=== PATIENT | female | born 1945 | race Caucasian/White ===

== ENCOUNTER → 2016-12-28 | Outpatient (CLI) | payer MEDICARE, BC ==
[~2016-12-28] MED LIST: CHOL1TAB41 PO; CINN500T PO; CLOT10TR PO; CORT5TAB PO; DAPA1TAB3 PO; DIMISTA EACH NARE; ESZO3TAB4 PO; FLEC1TAB8 PO; FOLI1TAB4 PO; FURO20TA PO; GABA300C5 PO; HYDR-4107 PO; HYDR50TA94 PO; LEVO.125 PO; LEVOTAB PO; MIRA50TA PO; MONT10TA2 PO; MULT1TAB99 PO; NALO1TAB2 PO; NYST500000 PO; ONDA1TAB17 PO; POTA10TA8 PO; PRAD150C PO; PRAV40TA2 PO; PROT40TA PO; VICT18IN SQ
[2016-12-28 13:21] LABS: AUTOMATED NEUTROPHIL # 3.7 TH/MM3 (1.8-7.7); BASOPHIL % 0.7 % (0.0-2.0); EOSINOPHIL # 0.1 TH/MM3 (0-0.4); EOSINOPHIL % 1.3 % (0.0-4.0); HEMATOCRIT 43.4 % (35.0-46.0); LYMPH % 37.2 % (9.0-44.0); LYMPHOCYTE # 2.7 TH/MM3 (1.0-4.8); MEAN CELL VOLUME 76.9 FL (80.0-100.0); MEAN CORPUSCULAR HEMOGLOBIN 24.7 PG (27.0-34.0); MEAN CORPUSCULAR HGB CONC 32.1 % (32.0-36.0); MONO % 9.7 % (0.0-8.0); NEUT % 51.1 % (16.0-70.0); PLATELET COUNT 284 TH/MM3 (150-450); RED BLOOD COUNT 5.65 MIL/MM3 (4.00-5.30); RED CELL DISTRIBUTION WIDTH 15.9 % (11.6-17.2); WHITE BLOOD COUNT 7.2 TH/MM3 (4.0-11.0)
[2016-12-28 13:22] LABS: HEMO FLAGS AUTO DIFF
[2016-12-28 13:27] LABS: BACTERIA, URINE RARE /hpf; BLOOD, URINE NEG (NEG); COMMENT (UR) CULT NOT INDICATED; CULTURE IF INDICATED CULT NOT INDICATED; GLUCOSE,URINE 1000 mg/dL (NEG); KETONE, URINE NEG (NEG); MUCUS URINE FEW /lpf (OCC); NITRITE,URINE NEG (NEG); PH, URINE 6.5 (5.0-8.5); SQUAMOUS EPITHELIAL CELL URINE 1 /hpf (0-5); TRANSITIONAL EPI CELLS, URINE <1 /hpf; URINE COLOR YELLOW (YELLW/STRAW)
[2016-12-28 13:37] LABS: ALKALINE PHOSPHATASE 70 U/L (45-117); ALT (GPT) 22 U/L (10-53); ANION GAP 9 MEQ/L (5-15); AST (GOT) 20 U/L (15-37); BICARBONATE 30.5 MEQ/L (21.0-32.0); BLOOD UREA NITROGEN 14 MG/DL (7-18); CHLORIDE 102 MEQ/L (98-107); FREE T3 2.38 PG/ML (2.18-3.98); FREE T4 1.05 NG/DL (0.76-1.46); GLOMERULAR FILTRATION RATE 60 ML/MIN (>89); GLUCOSE,FASTING 119 MG/DL (74-99); LDL CHOLESTEROL 98 MG/DL (0-99); POTASSIUM 3.6 MEQ/L (3.5-5.1); SODIUM (NA) 141 MEQ/L (136-145); TOTAL BILIRUBIN ADULT 0.4 MG/DL (0.2-1.0); URIC ACID 4.8 MG/DL (2.6-6.0)
[2016-12-28 13:44] LABS: MICRO ALBUMIN RANDOM URINE RAW 8.1 MG/L (0.0-30.0)
[2016-12-28 13:58] LABS: SCAN/DIFF AUTO DIFF CONFIRMED
[2016-12-28 18:26] LABS: HEMOGLOBIN Ao 83.3 %; HEMOGLOBIN LA1C 2.2 %; HEMOGLOBIN P3 4.4 %
== END ==
LOC: PLAB 08:04
DX: M06.4 Inflammatory polyarthropathy (principal); E78.00 Pure hypercholesterolemia, unspecified; E03.9 Hypothyroidism, unspecified; M32.9 Systemic lupus erythematosus, unspecified; D45 Polycythemia vera; M79.605 Pain in left leg; E11.65 Type 2 diabetes mellitus with hyperglycemia; E55.9 Vitamin D deficiency, unspecified; M1A.3620 Chronic gout due to renal impairment, left knee, without tophus (tophi); Z79.899 Other long term (current) drug therapy
CPT/HCPCS: 36415; 80053; 80061; 81001; 82043; 82306; 83036; 84439; 84443; 84481; 84550; 85025; 85379

== ENCOUNTER → 2017-04-26 | Outpatient (CLI) | payer MEDICARE, BC ==
[2017-04-26 12:02] LABS: ANION GAP 8 MEQ/L (5-15); AST (GOT) 25 U/L (15-37); BICARBONATE 29.2 MEQ/L (21.0-32.0); BLOOD UREA NITROGEN 18 MG/DL (7-18); CHLORIDE 103 MEQ/L (98-107); GLOMERULAR FILTRATION RATE 63 ML/MIN (>89); GLUCOSE,FASTING 100 MG/DL (74-99); SODIUM (NA) 140 MEQ/L (136-145)
[2017-04-26 12:06] LABS: AUTOMATED NEUTROPHIL # 3.3 TH/MM3 (1.8-7.7); BASOPHIL # 0.1 TH/MM3 (0-0.2); BASOPHIL % 0.9 % (0.0-2.0); EOSINOPHIL # 0.2 TH/MM3 (0-0.4); EOSINOPHIL % 2.3 % (0.0-4.0); HEMATOCRIT 43.3 % (35.0-46.0); HEMO FLAGS DIFF FINAL; LYMPH % 39.2 % (9.0-44.0); LYMPHOCYTE # 2.7 TH/MM3 (1.0-4.8); MEAN CELL VOLUME 77.5 FL (80.0-100.0); MEAN CORPUSCULAR HEMOGLOBIN 24.7 PG (27.0-34.0); MEAN CORPUSCULAR HGB CONC 31.9 % (32.0-36.0); MONO % 8.7 % (0.0-8.0); NEUT % 48.9 % (16.0-70.0); PLATELET COUNT 285 TH/MM3 (150-450); POTASSIUM 3.7 MEQ/L (3.5-5.1); RED BLOOD COUNT 5.59 MIL/MM3 (4.00-5.30); RED CELL DISTRIBUTION WIDTH 18.1 % (11.6-17.2); WHITE BLOOD COUNT 6.8 TH/MM3 (4.0-11.0)
[2017-04-26 12:12] LABS: ALKALINE PHOSPHATASE 85 U/L (45-117); ALT (GPT) 21 U/L (10-53); FREE T3 2.92 PG/ML (2.18-3.98); FREE T4 1.14 NG/DL (0.76-1.46); HDL CHOLESTEROL 59.3 MG/DL (40.0-60.0); LDL CHOLESTEROL 103 MG/DL (0-99); TOTAL BILIRUBIN ADULT 0.6 MG/DL (0.2-1.0)
[2017-04-26 16:19] LABS: HEMOGLOBIN Ao 83.4 %; HEMOGLOBIN LA1C 2.2 %; HEMOGLOBIN P3 4.5 %
== END ==
LOC: PLAB 09:41
DX: E03.9 Hypothyroidism, unspecified (principal); E11.65 Type 2 diabetes mellitus with hyperglycemia; E55.9 Vitamin D deficiency, unspecified; M06.4 Inflammatory polyarthropathy
CPT/HCPCS: 36415; 80053; 80061; 82306; 83036; 84439; 84443; 84481; 85025

== ENCOUNTER → 2017-06-05 | Outpatient (CLI) | payer MEDICARE, BC ==
[2017-06-05 14:11] LABS: TOTAL PROTEIN SPE 6.9 GM/DL (6.0-7.6)
[2017-06-06 22:24] LABS: ALBUMIN SPE 4.2 GM/DL (3.50-5.00); ALPHA 1 GLOBULIN 0.21 GM/DL (0.11-0.29); ALPHA 2 GLOBULIN 0.99 GM/DL (0.22-1.00); BETA GLOBULINS (SPE) 0.91 GM/DL (0.53-1.03)
== END ==
LOC: PLAB 07:45
DX: E53.8 Deficiency of other specified B group vitamins (principal); G44.219 Episodic tension-type headache, not intractable; G60.9 Hereditary and idiopathic neuropathy, unspecified
CPT/HCPCS: 36415; 82607; 84165

== ENCOUNTER → 2017-06-19 | Outpatient (CLI) | payer MEDICARE, BC | LOC: PLAB 09:17 | DX: G44.219 Episodic tension-type headache, not intractable (principal); G04.90 Encephalitis and encephalomyelitis, unspecified; M06.9 Rheumatoid arthritis, unspecified; M54.81 Occipital neuralgia | CPT/HCPCS: 36415; 85652 ==

== ENCOUNTER → 2017-07-05 | Outpatient (CLI) | payer MEDICARE, BC | LOC: PLAB 07:53 | PROVIDERS: ATTEND Family Medicine | DX: R53.82 Chronic fatigue, unspecified (principal); E11.40 Type 2 diabetes mellitus with diabetic neuropathy, unspecified | CPT/HCPCS: 36415; 82533; 82607; 82746 ==

== ENCOUNTER → 2017-09-19 | Outpatient (CLI) | payer MEDICARE, BC ==
[~2017-09-19] MED LIST changes: -ONDA1TAB17 PO; +ONDA8TAB7 PO
[2017-09-19 13:52] LABS: ANION GAP 10 MEQ/L (5-15); AST (GOT) 27 U/L (15-37); BICARBONATE 29.2 MEQ/L (21.0-32.0); BLOOD UREA NITROGEN 20 MG/DL (7-18); CHLORIDE 102 MEQ/L (98-107); GLOMERULAR FILTRATION RATE 60 ML/MIN (>89); GLUCOSE,FASTING 95 MG/DL (74-99); POTASSIUM 3.5 MEQ/L (3.5-5.1); SODIUM (NA) 141 MEQ/L (136-145)
[2017-09-19 14:02] LABS: ALKALINE PHOSPHATASE 95 U/L (45-117); ALT (GPT) 26 U/L (10-53); FREE T3 2.31 PG/ML (2.18-3.98); FREE T4 0.87 NG/DL (0.76-1.46); TOTAL BILIRUBIN ADULT 0.4 MG/DL (0.2-1.0)
[2017-09-19 17:55] LABS: HEMOGLOBIN A1a 1.1 %; HEMOGLOBIN A1b 2.1 %; HEMOGLOBIN Ao 83.1 %; HEMOGLOBIN LA1C 2.1 %
== END ==
LOC: PLAB 07:51
DX: E03.9 Hypothyroidism, unspecified (principal); E55.9 Vitamin D deficiency, unspecified; E11.65 Type 2 diabetes mellitus with hyperglycemia
CPT/HCPCS: 36415; 80053; 82306; 83036; 84439; 84443; 84481

== ENCOUNTER 2017-11-13 02:45 | Inpatient (IN) | payer MEDICARE, BC ==
[2017-11-13] VITALS (20 sets, daily range): BP systolic 104–155; BP diastolic 56–79; PULSE 64–150; RESP 16–25; TEMP 97.6–98.6; O2SAT 94–97
[~2017-11-13] VITALS: Ht 160 cm; Wt 70.8 kg
[2017-11-13] MEDS ORDERED: SODIUM CHLORIDE 0.9% FLUSH 10 ML FLUSH IVF PRN (03:00)
[2017-11-13] MEDS ORDERED: ASPIRIN 81 MG CHEW TAB CHEW ONE (03:00)
[2017-11-13] MEDS ORDERED: NITROGLYCERIN 2% OINT 1 GM PACKET TOPICAL ONE (03:00)
[2017-11-13] MEDS ORDERED: DILTIAZEM HCL 25 MG/5 ML VIAL IV PUSH ONE (03:00)
[2017-11-13] MEDS ORDERED: SODIUM CHLORIDE 0.9% FLUSH 10 ML FLUSH IV FLUSH PRN ×2 (03:00→05:45)
[2017-11-13] MEDS ORDERED: DILTIAZEM INJ 125 MG in SODIUM CHLORIDE 0.9% INJ 100 ML IV PRN (03:00)
[2017-11-13] MEDS ORDERED: SODIUM CHLORID 0.9% 500 ML INJ 500 ML IV ONE (03:15)
[2017-11-13 03:31] LABS: AUTOMATED NEUTROPHIL # 8.8 TH/MM3 (1.8-7.7); BASOPHIL # 0.1 TH/MM3 (0-0.2); BASOPHIL % 0.8 % (0.0-2.0); EOSINOPHIL # 0.1 TH/MM3 (0-0.4); EOSINOPHIL % 0.7 % (0.0-4.0); HEMATOCRIT 44.1 % (35.0-46.0); HEMOGLOBIN 14.4 GM/DL (11.6-15.3); LYMPH % 23.7 % (9.0-44.0); LYMPHOCYTE # 3.2 TH/MM3 (1.0-4.8); MEAN CELL VOLUME 79.7 FL (80.0-100.0); MEAN CORPUSCULAR HGB CONC 32.7 % (32.0-36.0); MEAN PLATELET VOLUME 8.5 FL (7.0-11.0); MONO % 9.2 % (0.0-8.0); MONOCYTE # 1.2 TH/MM3 (0-0.9); NEUT % 65.6 % (16.0-70.0); PLATELET COUNT 298 TH/MM3 (150-450); RED BLOOD COUNT 5.53 MIL/MM3 (4.00-5.30); RED CELL DISTRIBUTION WIDTH 17.1 % (11.6-17.2); WHITE BLOOD COUNT 13.5 TH/MM3 (4.0-11.0)
--- NOTE | 2017-11-13 03:48 | RADRPT ---
EXAM DATE/TIME: 11/13/2017 03:19 [place] COMPARISON: CHEST SINGLE AP, August 04, 2016, 21:16. INDICATIONS : Chest pain. MEDICAL HISTORY : None. SURGICAL HISTORY : None. ENCOUNTER: Initial ACUITY: 1 day PAIN SCORE: 4/10 LOCATION: Bilateral chest FINDINGS: The cardiac silhouette is enlarged in transverse diameter. The lungs are free of acute parenchymal op acity. No effusions are identified. There is mild scoliotic deformity convex to the right. CONCLUSION: 1. Cardiomegaly. No acute pulmonary disease. Javier Galeano MD on November 13, 2017 at 3:46 Board Certified Radiologist. This report was verified electronically.
--- NOTE | 2017-11-13 04:00 | PD ---
HPI Chief Complaint: Chest Pain Time Seen by Provider: 02:53 Travel History International Travel<30 days: No Contact w/Intl Traveler<30days: No Traveled to known affect area: No History of Present Illness HPI The patient is a 72 year old female who presents to the [facility] emergency department with a history of developing pain in her mid back associated with midepigastric abdominal discomfort and heartburn in the evening today. The patient reports that she was active yesterday moving some furniture with the help of her as well as cleaning up her Ema decorations. The patient reports that she had chili for dinner and thought that the heartburn may be related to this. She reports that she took Tums without any relief. She reports that she began to feel short of breath and nauseated with the pain. The patient then noticed that her heart seemed to be racing. The patient awoke again at approximately 2:30 AM with chest pain. She reports that she took 2 sublingual nitroglycerin without relief and then came to the emergency department. She denies having any known history of coronary artery blockages. She does have a family history of coronary artery disease. She also has a history of atrial fibrillation that on tinea sleek converted in February 2012. She continues to be on flecainide and for doxapram anticoagulation. The patient arrived by private vehicle. The patient is noted out front to have a heart rate in the 140s. Otherwise on review of systems, the patient denies having any vomiting associated with her nausea. The patient reports that the pain was radiating down into her arms. She denies having any recent fevers, cough or congestion, neck pain, abdominal pain diarrhea, urinary symptoms, or neurologic symptoms. [facility] Past Medical History Narrative Medical the patient's past medical history is significant for paroxysmal atrial fibrillation, history of hypertension, diabetes mellitus, history of Castleton's disease, history of cerebrovascular accident, rheumatoid arthritis, osteoarthritis, history of chronic pain syndrome, history of systemic lupus erythematosus, acid reflux, gastroparesis. From reviewing the electronic medical record, the patient has a history of having a chemical stress test done last in August 2016 at this facility which was negative. She had a cardiac catheterization done in 2006 which according the records showed normal coronary arteries without any coronary artery disease and a patent foramen ovale status post repair from 2001. Hx Anticoagulant Therapy: Yes (Pradaxa) Arthritis: Yes Asthma: Yes (hx attacks r/t allergy attacks) Autoimmune Disease: Yes (FIBROMYALGIA, SYSTEMIC CANDIDIASIS, LUPUS) Blood Disorders: No Heart Rhythm Problems: No Cancer: No Cardiac Catheterization: Yes (07/31/2007) Cardiovascular Problems: Yes (HTN, A-fib ) High Cholesterol: Yes (stopped meds due to adrenal 08/2014) Chest Pain: Yes Congestive Heart Failure: No Cerebrovascular Accident: Yes (stroke) Diabetes: Yes Patient Takes Glucophage: No Diminished Hearing: No Endocrine: Yes Fibromyalgia: Yes Gastrointestinal Disorders: Yes GERD: Yes Genitourinary: Yes (MULTIPLE CYSTS IN URETHRA, MD HAD TO POP) Hepatitis: No Hiatal Hernia: Yes Hypertension: Yes Immune Disorder: Yes (ADDISONS DIEASE) Implanted Vascular Access Dvce: Yes Medical other: Yes (MULTIPLE ALLERGIES, LUPUS, FIBROMYALGIA, RA, SEIZURES, REFLUX, STROKE) Musculoskeletal: Yes Neurologic: Yes Psychiatric: No Reproductive: No Respiratory: Yes (BRONCHITIS, PNEUMONIA) Migraines: Yes Myocardial Infarction: No Seizures: Yes Thyroid Disease: Yes (NODULES) Tetanus Vaccination: > 5 Years Influenza Vaccination: No PNEUMOCCOCAL Vaccine (Year): LAST REC'D 1999 Menopausal: Yes Dilation and Curettage (D&C): Yes Tubal Ligation: Yes Past Surgical History Narrative Surgical The patient's past surgical history is significant for cataract surgery, cholecystectomy, right knee surgery, appendectomy. Appendectomy: Yes (1960) Body Medical Devices: SCREWS/RODS IN BACK (2 broken) Cardiac Surgery: Yes (past) Cholecystectomy: Yes (05/13/2004) Coronary Artery Bypass Graft: No Eye Surgery: Yes (BILATERAL CATARACT SURGERY) Joint Replacement: Yes Pacemaker: No Other Surgery: Yes (LEFT KNEE SX) Family History Family Myocardial Infarction: Yes Social History Alcohol Use: Yes (occassional) Tobacco Use: No Substance Use: No Allergies-Medications (Allergen,Severity, Reaction): Coded Allergies: Sulfa (Sulfonamide Antibiotics) (Unverified Allergy, Severe, N/V, 06/19/17) acetaminophen (Unverified Allergy, Severe, red rash and hives, 06/19/17) amitriptyline (Unverified Allergy, Severe, red,rash and hives, 06/19/17) baclofen (Unverified Allergy, Severe, itch,rash and hives, 06/19/17) carisoprodol (Unverified Allergy, Severe, red,rash,hives, 06/19/17) cyclobenzaprine (Unverified Allergy, Severe, Hives, 06/19/17) diatrizoate meglumine (Unverified Allergy, Severe, HIVES, ITCH, 06/19/17) doxycycline (Unverified Allergy, Severe, red,rash,hives, 06/19/17) esomeprazole (Unverified Allergy, Severe, HIVES, 06/19/17) gadobenic acid (Unverified Allergy, Severe, HIVES, ITCH, 06/19/17) gadodiamide (Unverified Allergy, Severe, HIVES, ITCH, 06/19/17) gadoteridol (Unverified Allergy, Severe, HIVES, ITCH, 06/19/17) hydrocodone (Unverified Allergy, Severe, red rash and hives, 06/19/17) hydromorphone (Unverified Allergy, Severe, Hives, 06/19/17) hydroxychloroquine (Unverified Allergy, Severe, Rash, 06/19/17) iodine (Unverified Allergy, Severe, HIVES, ITCH, 06/19/17) iodixanol (Unverified Allergy, Severe, HIVES, ITCH, 06/19/17) iohexol (Unverified Allergy, Severe, HIVES, ITCH, 06/19/17) levofloxacin (Unverified Allergy, Severe, Seizures, 06/19/17) metaxalone (Unverified Allergy, Severe, Hives, 06/19/17) metformin (Unverified Allergy, Severe, HIVES, 06/19/17) methocarbamol (Unverified Allergy, Severe, RASH,HIVES, 06/19/17) morphine (Unverified Allergy, Severe, Hives, 06/19/17) oxycodone (Unverified Allergy, Severe, red rash and hives, 06/19/17) penicillin G (Unverified Allergy, Severe, red rash and hives, 06/19/17) potassium iodide (Unverified Allergy, Severe, HIVES, ITCH, 06/19/17) povidone-iodine (Unverified Allergy, Severe, HIVES, ITCH, 06/19/17) pregabalin (Unverified Allergy, Severe, Numbness, 06/19/17) sodium iodide (Unverified Allergy, Severe, HIVES, ITCH, 06/19/17) sodium iodide (Unverified Allergy, Severe, HIVES, ITCH, 06/19/17) sulfamethoxazole (Unverified Allergy, Severe, N/V, 06/19/17) topiramate (Unverified Allergy, Severe, red rash and hives, 06/19/17) trimethoprim (Unverified Allergy, Severe, N/V, 06/19/17) lovastatin (Unverified Adverse Reaction, Severe, ALOVASTATIN + NIACIN = ADVICOR (SIDE EFFECT FLUSHING), 06/19/17) niacin (Unverified Adverse Reaction, Severe, NIACIN + LOVASTATIN = ADVICOR (SIDE EFFECT FLUSHING), 06/19/17) Uncoded Allergies: ONGLYZA (Allergy, Mild, FEET SWELLING, 09/26/13) TRAJENTA (Allergy, Mild, FEET SWELLING, 09/26/13) GLUCAVANCE (Allergy, Unknown, UNKNOWN, 03/01/14) MOST ANTIBIOTICS (Allergy, Unknown, UNKNOWN, 03/01/14) BYDUREON (Adverse Reaction, Unknown, SWELLING, 03/01/14) Reported Meds & Prescriptions Reported Meds & Active Scripts Active Reported Zinc Gluconate 50 Mg Tab 50 Mg PO DAILY [tumeric] 1 Tab PO BID Synthroid (Levothyroxine Sodium) 137 Mcg Tab 137 Mcg PO DAILY Stool Softener (Docusate Sodium) 100 Mg Cap 1 Tab PO TID Risedronate 150 Mg Tab 150 Mg PO Q30D Ranitidine (Ranitidine HCl) 150 Mg Tab 150 Mg PO DAILY Proair Respiclick Inh (Albuterol Sulfate) 90 Mcg/Act Aerp 1 Puff INH Q4H PRN Nystatin Liq 100,000 unit/ml Susp 5 Ml SWISH-SWAL QID Nitrostat SL (Nitroglycerin) 0.4 Mg Subl 0.4 Mg SL DIRECTED PRN 1 tablet under the tongue as needed for chest pain. Repeat every 5 minutes for a total of 3 DOSES or call 911 if NO relief. [midrin] 1 Cap PO DIRECTED Meclizine (Meclizine HCl) 25 Mg Tab 25 Mg PO TID PRN Lunesta (Eszopiclone) 2 Mg Tab 3 Mg PO HS PRN Linzess (Linaclotide) 290 Mcg Cap 290 Mcg PO DAILY Klor-Con 10 (Potassium Chloride) 10 Meq Tab 10 Meq PO ONCE Hydrocortisone 20 Mg Tab 20 Mg PO DAILY Take with food to decrease GI upset Hair Skin & Nails (Biotin W/ Vitamins C & E) 1,250-7.5-7.5 Mcg-Mg-Unit Chew 1 Tab PO TID Gabapentin 400 Mg Cap 400 Cap PO TID [formula 303] 1 Tab PO DAILY Folic Acid 0.8 Mg Tab 1 Mg PO DAILY Estrace Vaginal (Estradiol) 0.01% Cream 1 Appl VAGINAL HS Duloxetine DR (Duloxetine HCl) 60 Mg Capdr 60 Mg PO DAILY Diazepam 5 Mg Tab 5 Mg PO BID PRN Dexamethasone Sodium Phosphate Inj (Dexamethasone Sod Phosphate Inj) 4 Mg/Ml Vial 4 Mg IM ONCE Eql Cinnamon (Cinnamon) 500 Mg Cap 1,000 Mg PO BID Celecoxib 200 Mg Cap 200 Mg PO DAILY Biotin 5,000 Mcg Tab.rapdis 1 Tab PO QID Bethanechol 25 Mg Tab 25 Mg PO QID Diphenhydramine (Diphenhydramine HCl) 25 Mg Tab 50 Mg PO Q6H PRN Azelastine Nasal Kalona (Azelastine HCl) 0.15% Kalona 1 Kalona EACH NARE BID To each nostril. Aspirin 81 Mg Chew 81 Mg CHEW DAILY Levocetirizine 5 Mg Tab 5 Mg PO DAILY Cortef (Hydrocortisone) 5 Mg Tab 5 Mg PO DIRECTED 12Noon & 5pm take with food to decrease GI upset. Pravastatin 40 Mg Tab 40 Mg PO HS Farxiga (Dapagliflozin) 10 Mg Tab 10 Mg PO DAILY Singulair (Montelukast Sodium) 10 Mg Tab 10 Mg PO DAILY Pradaxa (Dabigatran) 150 Mg Cap 150 Mg PO BID Protonix (Pantoprazole Sodium) 40 Mg Tab 40 Mg PO DAILY Ondansetron (Ondansetron HCl) 8 Mg Tab 8 Mg PO QID PRN Myrbetriq (Mirabegron) 50 Mg Tab 25 Mg PO DAILY Victoza Inj (Liraglutide Inj) 18 Mg/3 Ml Pen 1.8 Mg SQ DAILY Hydroxyzine HCl 50 Mg Tab 25 Mg PO TID PRN Hydrocodone-Acetaminophen 5-300 Mg Tab 1 Tab PO Q6H PRN Furosemide 20 Mg Tab 20 Mg PO DAILY Flecainide (Flecainide Acetate) 50 Mg Tab 50 Mg PO BID PRN Clotrimazole Stephon (Clotrimazole) 10 Mg Troc 10 Mg PO QID PRN Vitamin D3 (Cholecalciferol) 10,000 Unit Tab 50,000 Units PO HS Review of Systems Except as stated in HPI: all other systems reviewed are Neg General / Constitutional: No: Fever Eyes: No: Visual changes HENT: No: Headaches Cardiovascular: Positive: Chest Pain or Discomfort, Palpitations, Tachycardia, Dyspnea on exertion, Claudication, No: Diaphoresis Respiratory: Positive: Shortness of Breath Gastrointestinal: Positive: Nausea, No: Vomiting, Diarrhea, Abdominal Pain Genitourinary: No: Dysuria Musculoskeletal: No: Pain Skin: No Rash Neurologic: No: Weakness, Focal Abnormalities, Change in Mentation, Slurred Speech, Sensory Disturbance Psychiatric: No: Depression Endocrine: No: Polydipsia Hematologic/Lymphatic: No: Easy Bruising Physical Exam Narrative General: The patient is a well-developed well-nourished female in no acute distress. Head and Neck exam: Head is normocephalic atraumatic. Eyes: EOMI, pupils are equal round and reactive to light. Nose: Midline septum with pink mucous membranes Mouth: Dentition unremarkable. Moist mucus membranes. Posterior oropharynx is not erythematous. No tonsillar hypertrophy. Uvula midline. Airway patent. Neck: No palpable lymphadenopathy. No nuchal rigidity. No thyromegaly. Cardiovascular: Irregularly irregular, tachycardic with a rate in the 140 without murmurs, gallops, or rubs. She has intermittent pulse deficit palpated to her extremities on simultaneous auscultation and palpation of her radial artery consistent with atrial fibrillation. Lungs: Clear to auscultation bilaterally. No wheezes, rhonchi, or rales. Abdomen: Soft, with tenderness on palpation of the midepigastric area and right upper quadrant of the abdomen, no other tenderness on palpation of the other quadrants of the abdomen. No tenderness on palpation of McBurney's point. Negative Langston's sign. No guarding, rebound, or rigidity. Extremities: No clubbing, cyanosis, or edema. 2+ pulses in all 4 extremities. No calf tenderness on palpation Back: No costovertebral angle tenderness to palpation. Neurologic Exam: Grossly nonfocal. Skin Exam: No rash noted. Intact skin that is warm and dry. Data Data Last Documented VS Vital Signs Date Time Temp Pulse Resp B/P (MAP) Pulse Ox O2 Delivery O2 Flow Rate FiO2 11/13/17 05:21 128 154/64 11/13/17 04:51 98.4 16 97 Room Air Orders Orders Electrocardiogram (11/13/17 02:59) B-Type Natriuretic Peptide (11/13/17 02:59) Ckmb (Isoenzyme) Profile (11/13/17 02:59) Complete Blood Count With Diff (11/13/17 02:59) Comprehensive Metabolic Panel (11/13/17 02:59) Magnesium (Mg) (11/13/17 02:59) Prothrombin Time / Inr (Pt) (11/13/17 02:59) Act Partial Throm Time (Ptt) (11/13/17 02:59) Troponin I (11/13/17 02:59) Lipase (11/13/17 02:59) Chest, Single Ap (11/13/17 02:59) Ecg Monitoring (11/13/17 02:59) Bilateral Bp Monitoring (11/13/17 02:59) Iv Access Insert/Monitor (11/13/17 02:59) Oximetry (11/13/17 02:59) Oxygen Administration (11/13/17 02:59) Sodium Chloride 0.9% Flush (Ns Flush) (11/13/17 03:00) Blood Pressure (11/13/17 02:59) Diltiazem Inj (Cardizem Inj) (11/13/17 03:00) Diltiazem Inj (Cardizem Inj) (11/13/17 03:00) Sodium Chloride 0.9% Flush (Ns Flush) (11/13/17 03:00) Aspirin Chew (Aspirin Chew) (11/13/17 03:00) Nitroglycerin 2% Oint (Nitroglycerin 2% (11/13/17 03:00) Sodium Chlorid 0.9% 500 Ml Inj (Ns 500 M (11/13/17 03:15) CKMB (11/13/17 04:50) CKMB% (11/13/17 04:50) Admit Order (Ed Use Only) (11/13/17 05:30) Admit To Inpatient (11/13/17 ) Vital Signs (Adult) Q4H (11/13/17 05:34) Activity Oob With Assistance (11/13/17 05:34) [employer] / Telemetry .CONTINUOUS (11/13/17 05:34) Diet Heart Healthy (11/13/17 Breakfast) Sodium Chloride 0.9% Flush (Ns Flush) (11/13/17 05:45) Sodium Chloride 0.9% Flush (Ns Flush) (11/13/17 09:00) Basic Metabolic Panel (Bmp) (11/14/17 06:00) Complete Blood Count With Diff (11/14/17 06:00) Creatine Kinase (Cpk) (11/13/17 22:50) Creatine Kinase (Cpk) (11/14/17 04:50) Troponin I (11/13/17 22:50) Troponin I (11/14/17 04:50) Electrocardiogram (11/13/17 22:50) Electrocardiogram (11/14/17 04:50) Pt Request For Service (11/13/17 05:34) Case Management Consult (11/13/17 05:34) Naloxone Inj (Narcan Inj) (11/13/17 05:45) Inpatient Certification (11/13/17 ) Labs Laboratory Tests Test 11/13/17 03:10 11/13/17 04:50 White Blood Count 13.5 TH/MM3 Red Blood Count 5.53 MIL/MM3 Hemoglobin 14.4 GM/DL Hematocrit 44.1 % Mean Corpuscular Volume 79.7 FL Mean Corpuscular Hemoglobin 26.0 PG Mean Corpuscular Hemoglobin Concent 32.7 % Red Cell Distribution Width 17.1 % Platelet Count 298 TH/MM3 Mean Platelet Volume 8.5 FL Neutrophils (%) (Auto) 65.6 % Lymphocytes (%) (Auto) 23.7 % Monocytes (%) (Auto) 9.2 % Eosinophils (%) (Auto) 0.7 % Basophils (%) (Auto) 0.8 % Neutrophils # (Auto) 8.8 TH/MM3 Lymphocytes # (Auto) 3.2 TH/MM3 Monocytes # (Auto) 1.2 TH/MM3 Eosinophils # (Auto) 0.1 TH/MM3 Basophils # (Auto) 0.1 TH/MM3 CBC Comment DIFF FINAL Differential Comment B-Type Natriuretic Peptide 107 PG/ML Blood Urea Nitrogen 27 MG/DL Creatinine 0.86 MG/DL Random Glucose 169 MG/DL Total Protein 5.7 GM/DL Albumin 2.8 GM/DL Calcium Level 9.1 MG/DL Magnesium Level 2.2 MG/DL Alkaline Phosphatase 72 U/L Aspartate Amino Transf (AST/SGOT) 35 U/L Alanine Aminotransferase (ALT/SGPT) 29 U/L Total Bilirubin 0.3 MG/DL Sodium Level 143 MEQ/L Potassium Level 4.0 MEQ/L Chloride Level 108 MEQ/L Carbon Dioxide Level 27.3 MEQ/L Anion Gap 8 MEQ/L Estimat Glomerular Filtration Rate 65 ML/MIN Total Creatine Kinase 157 U/L Creatine Kinase MB 2.7 NG/ML Troponin I 0.02 NG/ML Lipase 178 U/L [facility] Medical Decision Making Medical Screen Exam Complete: Yes Emergency Medical Condition: Yes Medical Record Reviewed: Yes Interpretation(s) Last Impressions Chest X-Ray 11/13/17 0259 Signed Impressions: Service Date/Time: Monday, November 13, 2017 03:19 - CONCLUSION: 1. Cardiomegaly. No acute pulmonary disease. Javier Galeano MD Differential Diagnosis A. fib with RVR recurrent related to paroxysmal atrial fibrillation, versus electrolyte derangements, versus acute coronary syndrome Narrative Course During the course of the patients emergency department visit, the patients history, examination, and differential diagnosis were reviewed with the patient. The patient was placed on a monitoring analyst with oximetry and frequent blood pressure monitoring. The patient had IV access obtained and blood work sent for analysis. The patient had an ECG done on arrival. The patient's ECG reveals A. fib with RVR, or heart rate of 142, no acute ST segment elevation. QRS duration is 94 ms, QTC 387 ms. The patient was initially provided aspirin 81 mg by mouth 1, nitroglycerin 1 inch to the chest wall, Cardizem 15 mg IV 1. A Cardizem drip will be started at the patient's heart rate continues to be about 100. The patients laboratory studies were reviewed and remarkable for a white count of 13.5, hemoglobin 14.4, platelets 298 with 9.2 monocytes, BNP is 107, CMP is remarkable for chloride of 108, BUN 27, glucose 169, BNP 107, lipase 178 PT 11.2 , PTT 32.2. Radiology studies were reviewed and remarkable for a chest x-ray that shows cardiomegaly, no acute cardio pulmonary disease. The patients results were discussed with the patient, including the plan of care. I explained that further testing and/ or monitoring is indicated based on the patients history, examination, and/ or laboratory findings. Therefore, I recommended admission for additional evaluation. The patient expressed understanding and was agreeable with this plan. The patient was admitted to the hospital in stable condition and sent to a bed under the care of the [facility] service. Physician Communication Physician Communication The patient's case including history, pertinent physical examination findings, and laboratory studies were discussed with Dr. Christianson. It was agreed that the patient would be admitted to the [facility] service. Diagnosis Primary Impression: Atrial fibrillation with RVR Additional Impression: Chest pain, rule out acute myocardial infarction Admitting Information Admitting Physician Requests: Admit Francesca Aparicio MD Nov 13, 2017 04:00
[2017-11-13] MEDS ORDERED: RANI150T PO (04:43)
[2017-11-13] MEDS ORDERED: AZEL0.055 EACH NARE (04:43)
[2017-11-13] MEDS ORDERED: ZINC50TA2 PO (04:43)
[2017-11-13] MEDS ORDERED: CELE1CAP8 PO (04:43)
[2017-11-13] MEDS ORDERED: BIOT50006 PO (04:43)
[2017-11-13] MEDS ORDERED: ESZO2 PO (04:43)
[2017-11-13] MEDS ORDERED: ASPI-516 CHEW (04:43)
[2017-11-13] MEDS ORDERED: DIAZ5TAB PO (04:43)
[2017-11-13] MEDS ORDERED: formula 303 PO (04:43)
[2017-11-13] MEDS ORDERED: ALBU1AER5 INH (04:43)
[2017-11-13] MEDS ORDERED: GABA400C5 PO (04:43)
[2017-11-13] MEDS ORDERED: NITR0.4S SL (04:43)
[2017-11-13] MEDS ORDERED: ESTR42.5V VAGINAL (04:43)
[2017-11-13] MEDS ORDERED: LEVO-86 PO (04:43)
[2017-11-13] MEDS ORDERED: DOCU1CAP66 PO (04:43)
[2017-11-13] MEDS ORDERED: MECL-62 PO (04:43)
[2017-11-13] MEDS ORDERED: DIPH25TA2 PO (04:43)
[2017-11-13] MEDS ORDERED: RISE1TAB13 PO (04:43)
[2017-11-13] MEDS ORDERED: tumeric PO (04:43)
[2017-11-13] MEDS ORDERED: NYST1000 SWISH-SWAL (04:43)
[2017-11-13] MEDS ORDERED: FOLI800T PO (04:43)
[2017-11-13] MEDS ORDERED: DULO1CAP3 PO (04:43)
[2017-11-13] MEDS ORDERED: midrin PO (04:43)
[2017-11-13] MEDS ORDERED: KLOR10TA PO (04:43)
[2017-11-13] MEDS ORDERED: DEXA4VIA IM (04:43)
[2017-11-13] MEDS ORDERED: BETH25TA2 PO (04:43)
[2017-11-13] MEDS ORDERED: HYDR20TA PO (04:43)
[2017-11-13] MEDS ORDERED: BIOT1CHW PO (04:43)
[2017-11-13] MEDS ORDERED: LINA290C PO (04:43)
[2017-11-13] MEDS ORDERED: CINN500C2 PO (04:43)
[2017-11-13 05:22] LABS: ALBUMIN 2.8 GM/DL (3.4-5.0); ALKALINE PHOSPHATASE 72 U/L (45-117); ALT (GPT) 29 U/L (10-53); AST (GOT) 35 U/L (15-37); BICARBONATE 27.3 MEQ/L (21.0-32.0); BLOOD UREA NITROGEN 27 MG/DL (7-18); CALCIUM 9.1 MG/DL (8.5-10.1); CHLORIDE 108 MEQ/L (98-107); CREATININE 0.86 MG/DL (0.50-1.00); GLOMERULAR FILTRATION RATE 65 ML/MIN (>89); GLUCOSE,RANDOM 169 MG/DL (74-106); LIPASE 178 U/L (73-393); MAGNESIUM 2.2 MG/DL (1.5-2.5); SODIUM (NA) 143 MEQ/L (136-145); TOTAL BILIRUBIN ADULT 0.3 MG/DL (0.2-1.0); TOTAL PROTEIN 5.7 GM/DL (6.4-8.2); TROPONIN I 0.02 NG/ML (0.02-0.05)
[2017-11-13] MEDS ORDERED: GLUCAGON 1 MG/ML VIAL OTHER PRN (05:45)
[2017-11-13] MEDS ORDERED: diphenhydrAMINE HCL 25 MG CAP PO PRN (05:45)
[2017-11-13] MEDS ORDERED: NALOXONE HCL 0.4 MG/ML AMP IV PUSH PRN (05:45)
[2017-11-13] MEDS ORDERED: DEXTROSE 50% IN WATER 50 ML VIAL(D50) IV PUSH PRN (05:45)
[2017-11-13] MEDS ORDERED: DIAZEPAM 5 MG TAB PO PRN (05:45)
[2017-11-13] MEDS ORDERED: FLECAINIDE ACETATE 100 MG TAB PO PRN (05:45)
[2017-11-13] MEDS ORDERED: ONDANSETRON ODT 4 MG TAB PO PRN (06:00)
[2017-11-13 06:17] LABS: INTERNATIONAL NORMALIZED RATIO 1.1 RATIO; PROTHROMBIN TIME - PATIENT 11.2 SEC (9.8-11.6)
[2017-11-13] MEDS: LEVOTHYROXINE SODIUM 112 MCG TAB PO SCH (06:38)
[2017-11-13] MEDS: LEVOTHYROXINE SODIUM 25 MCG TAB PO SCH (06:38)
[2017-11-13] MEDS: INSULIN ASPART SUPPLEMENTAL SCALE SQ SCH ×4 (08:00→20:58)
[2017-11-13] MEDS: ASPIRIN 81 MG CHEW TAB CHEW SCH (08:59)
[2017-11-13] MEDS: DULoxetine HCl DR 60 MG CAP PO SCH (08:59)
[2017-11-13] MEDS ORDERED: MIRABEGRON 25 MG PO SCH (09:00)
[2017-11-13] MEDS: DOCUSATE SODIUM 100 MG CAP PO SCH ×3 (09:00→16:42)
[2017-11-13] MEDS: DABIGATRAN ETEXILATE 150 MG CAP PO SCH ×2 (09:00→20:54)
[2017-11-13] MEDS: MONTELUKAST SODIUM 10 MG TAB PO SCH (09:00)
[2017-11-13] MEDS ORDERED: LEVOCETIRIZINE 5 MG PO SCH (09:00)
[2017-11-13] MEDS: FAMOTIDINE 20 MG TAB PO SCH (09:00)
[2017-11-13] MEDS ORDERED: LINACLOTIDE 290 MCG PO SCH (09:00)
[2017-11-13] MEDS: FUROSEMIDE 20 MG TAB PO SCH (09:00)
[2017-11-13] MEDS: SODIUM CHLORIDE 0.9% FLUSH 10 ML FLUSH IV FLUSH SCH ×2 (09:00→20:55)
[2017-11-13] MEDS: NYSTATIN SUSP 500,000 U/5 ML CUP SWISH-SWAL SCH ×4 (09:01→20:53)
[2017-11-13] MEDS: PANTOPRAZOLE SOD 40 MG DELAYED RELEASE TAB PO SCH (09:01)
[2017-11-13] MEDS: ACETAMINOPHEN/HYDROcodone 325 MG/5 MG TAB PO PRN ×2 (09:24→16:41)
[2017-11-13] MEDS: HYDROCORTISONE 10 MG TAB PO SCH (09:25)
[2017-11-13] MEDS: BETHANECHOL CHL 25 MG TAB PO SCH ×4 (09:25→20:54)
[2017-11-13] MEDS: hydrOXYzine HCL 25 MG TAB PO PRN (09:25)
[2017-11-13] MEDS ORDERED: DILTIAZEM HCL 30 MG TAB PO ONE (10:30)
[2017-11-13] MEDS: DILTIAZEM HCL 30 MG TAB PO SCH ×3 (12:45→20:54)
--- NOTE | 2017-11-13 15:21 | PD.CONS ---
HPI Service Cardiology Physicians Consult Requested By Dr Ritchie Reason for Consult Afib RVR Primary Care Physician Kaylan Gu MD History of Present Illness The patient is a 72 year old female with a cardiac history of atrial fibrillation on Pradaxa, PFO closure, CVA, HLD, diabetes and mild carotid stenosis. The patient presented to the hospital early this morning for chest palpitations that felt like a "strong pounding going through to my back". She also complains of a mid back pain that started with the onset of symptoms of palpitations. She was participating in more strenuous activity yesterday moving things around in her home. Since admission, the palpitations have subsided, but she continues to have a midback pain that is worse with direct palpation. To note, her museum librarian has suggested to decrease hydrocortisone recently due to what sounds like surjit's syndrome (Lillian Watson) Review of Systems Consitutional: DENIES: Fatigue, Fever, Chills, Weight gain, Weight loss Eyes: DENIES: Amaurosis Fugax, Change in vision HEENT: DENIES: Lightheadedness, Change in hearing Respiratory: DENIES: See HPI, Cough, Snoring, Shortness of breath, Wheezing, Sputum production Cardiovascular: COMPLAINS OF: Chest pain, Palpitations, Tachycardia, DENIES: See HPI, Syncope Gastrointestinal: DENIES: Nausea, Vomiting, Change in bowel habits, Reflux, Bloody stools, Melena Genitourinary: DENIES: Urinary incontinence, Difficulty voiding Integumentary: DENIES: Rash Neurologic: DENIES: Tingling or numbness, Memory problems, Poor Balance, Stroke symptoms Musculoskeletal: COMPLAINS OF: Back pain, DENIES: Joint pain, Muscle pain, Limited range of motion Psychiatric: DENIES: Anxiety, Depression, Sleep disturbances Hematologic: DENIES: Bruising tendencies, Bleeding tendencies Endocrine: DENIES: Weight gain, Weight loss, Thyroid disease (Lillian Watson ) Past Family Social History Allergies: Coded Allergies: Sulfa (Sulfonamide Antibiotics) (Unverified Allergy, Severe, N/V, 06/19/17) acetaminophen (Unverified Allergy, Severe, red rash and hives, 06/19/17) amitriptyline (Unverified Allergy, Severe, red,rash and hives, 06/19/17) baclofen (Unverified Allergy, Severe, itch,rash and hives, 06/19/17) carisoprodol (Unverified Allergy, Severe, red,rash,hives, 06/19/17) cyclobenzaprine (Unverified Allergy, Severe, Hives, 06/19/17) diatrizoate meglumine (Unverified Allergy, Severe, HIVES, ITCH, 06/19/17) doxycycline (Unverified Allergy, Severe, red,rash,hives, 06/19/17) esomeprazole (Unverified Allergy, Severe, HIVES, 06/19/17) gadobenic acid (Unverified Allergy, Severe, HIVES, ITCH, 06/19/17) gadodiamide (Unverified Allergy, Severe, HIVES, ITCH, 06/19/17) gadoteridol (Unverified Allergy, Severe, HIVES, ITCH, 06/19/17) hydrocodone (Unverified Allergy, Severe, red rash and hives, 06/19/17) hydromorphone (Unverified Allergy, Severe, Hives, 06/19/17) hydroxychloroquine (Unverified Allergy, Severe, Rash, 06/19/17) iodine (Unverified Allergy, Severe, HIVES, ITCH, 06/19/17) iodixanol (Unverified Allergy, Severe, HIVES, ITCH, 06/19/17) iohexol (Unverified Allergy, Severe, HIVES, ITCH, 06/19/17) levofloxacin (Unverified Allergy, Severe, Seizures, 06/19/17) metaxalone (Unverified Allergy, Severe, Hives, 06/19/17) metformin (Unverified Allergy, Severe, HIVES, 06/19/17) methocarbamol (Unverified Allergy, Severe, RASH,HIVES, 06/19/17) morphine (Unverified Allergy, Severe, Hives, 06/19/17) oxycodone (Unverified Allergy, Severe, red rash and hives, 06/19/17) penicillin G (Unverified Allergy, Severe, red rash and hives, 06/19/17) potassium iodide (Unverified Allergy, Severe, HIVES, ITCH, 06/19/17) povidone-iodine (Unverified Allergy, Severe, HIVES, ITCH, 06/19/17) pregabalin (Unverified Allergy, Severe, Numbness, 06/19/17) sodium iodide (Unverified Allergy, Severe, HIVES, ITCH, 06/19/17) sodium iodide (Unverified Allergy, Severe, HIVES, ITCH, 06/19/17) sulfamethoxazole (Unverified Allergy, Severe, N/V, 06/19/17) topiramate (Unverified Allergy, Severe, red rash and hives, 06/19/17) trimethoprim (Unverified Allergy, Severe, N/V, 06/19/17) lovastatin (Unverified Adverse Reaction, Severe, ALOVASTATIN + NIACIN = ADVICOR (SIDE EFFECT FLUSHING), 06/19/17) niacin (Unverified Adverse Reaction, Severe, NIACIN + LOVASTATIN = ADVICOR (SIDE EFFECT FLUSHING), 06/19/17) Uncoded Allergies: ONGLYZA (Allergy, Mild, FEET SWELLING, 09/26/13) TRAJENTA (Allergy, Mild, FEET SWELLING, 09/26/13) GLUCAVANCE (Allergy, Unknown, UNKNOWN, 03/01/14) MOST ANTIBIOTICS (Allergy, Unknown, UNKNOWN, 03/01/14) BYDUREON (Adverse Reaction, Unknown, SWELLING, 03/01/14) Past Medical History Atrial fibrillation CVA PFO closure Carotid stenosis HTN HLD IDDM Hypothyroidism GERD COPD Addisons disease Lupus Polycythemia Venous stasis Past Surgical History right shoulder 01/2016 neck surgery 02/2015 and 2012 back surgery 2007 rotator cuff surgery 03/2007 cholecystectomy 05/2004 PFO closure 12/2001 Reported Medications Reported Meds & Active Scripts Active Reported Zinc Gluconate 50 Mg Tab 50 Mg PO DAILY [tumeric] 1 Tab PO BID Synthroid (Levothyroxine Sodium) 137 Mcg Tab 137 Mcg PO DAILY Stool Softener (Docusate Sodium) 100 Mg Cap 1 Tab PO TID Risedronate 150 Mg Tab 150 Mg PO Q30D Ranitidine (Ranitidine HCl) 150 Mg Tab 150 Mg PO DAILY Proair Respiclick Inh (Albuterol Sulfate) 90 Mcg/Act Aerp 1 Puff INH Q4H PRN Nystatin Liq 100,000 unit/ml Susp 5 Ml SWISH-SWAL QID Nitrostat SL (Nitroglycerin) 0.4 Mg Subl 0.4 Mg SL DIRECTED PRN 1 tablet under the tongue as needed for chest pain. Repeat every 5 minutes for a total of 3 DOSES or call 911 if NO relief. [midrin] 1 Cap PO DIRECTED Meclizine (Meclizine HCl) 25 Mg Tab 25 Mg PO TID PRN Lunesta (Eszopiclone) 2 Mg Tab 3 Mg PO HS PRN Linzess (Linaclotide) 290 Mcg Cap 290 Mcg PO DAILY Klor-Con 10 (Potassium Chloride) 10 Meq Tab 10 Meq PO ONCE Hydrocortisone 20 Mg Tab 20 Mg PO DAILY Take with food to decrease GI upset Hair Skin & Nails (Biotin W/ Vitamins C & E) 1,250-7.5-7.5 Mcg-Mg-Unit Chew 1 Tab PO TID Gabapentin 400 Mg Cap 400 Cap PO TID [formula 303] 1 Tab PO DAILY Folic Acid 0.8 Mg Tab 1 Mg PO DAILY Estrace Vaginal (Estradiol) 0.01% Cream 1 Appl VAGINAL HS Duloxetine DR (Duloxetine HCl) 60 Mg Capdr 60 Mg PO DAILY Diazepam 5 Mg Tab 5 Mg PO BID PRN Dexamethasone Sodium Phosphate Inj (Dexamethasone Sod Phosphate Inj) 4 Mg/Ml Vial 4 Mg IM ONCE Eql Cinnamon (Cinnamon) 500 Mg Cap 1,000 Mg PO BID Celecoxib 200 Mg Cap 200 Mg PO DAILY Biotin 5,000 Mcg Tab.rapdis 1 Tab PO QID Bethanechol 25 Mg Tab 25 Mg PO QID Diphenhydramine (Diphenhydramine HCl) 25 Mg Tab 50 Mg PO Q6H PRN Azelastine Nasal [place] (Azelastine HCl) 0.15% [place] 1 [place] EACH NARE BID To each nostril. Aspirin 81 Mg Chew 81 Mg CHEW DAILY Levocetirizine 5 Mg Tab 5 Mg PO DAILY Cortef (Hydrocortisone) 5 Mg Tab 5 Mg PO DIRECTED 12Noon & 5pm take with food to decrease GI upset. Pravastatin 40 Mg Tab 40 Mg PO HS Farxiga (Dapagliflozin) 10 Mg Tab 10 Mg PO DAILY Singulair (Montelukast Sodium) 10 Mg Tab 10 Mg PO DAILY Pradaxa (Dabigatran) 150 Mg Cap 150 Mg PO BID Protonix (Pantoprazole Sodium) 40 Mg Tab 40 Mg PO DAILY Ondansetron (Ondansetron HCl) 8 Mg Tab 8 Mg PO QID PRN Myrbetriq (Mirabegron) 50 Mg Tab 25 Mg PO DAILY Victoza Inj (Liraglutide Inj) 18 Mg/3 Ml Pen 1.8 Mg SQ DAILY Hydroxyzine HCl 50 Mg Tab 25 Mg PO TID PRN Hydrocodone-Acetaminophen 5-300 Mg Tab 1 Tab PO Q6H PRN Furosemide 20 Mg Tab 20 Mg PO DAILY Flecainide (Flecainide Acetate) 50 Mg Tab 50 Mg PO BID PRN Clotrimazole Stephon (Clotrimazole) 10 Mg Troc 10 Mg PO QID PRN Vitamin D3 (Cholecalciferol) 10,000 Unit Tab 50,000 Units PO HS Active Ordered Medications Current Medications Medications (Trade) Dose Ordered Sig/Shirley Route Start Time Stop Time Status Last Admin (NS Flush) 2 ml UNSCH PRN IV FLUSH 11/13/17 05:45 (NS Flush) 2 ml BID IV FLUSH 11/13/17 09:00 (Narcan Inj) 0.4 mg UNSCH PRN IV PUSH 11/13/17 05:45 (Aspirin Chew) 81 mg DAILY CHEW 11/13/17 09:00 11/13/17 08:59 (Urecholine) 25 mg QID PO 11/13/17 09:00 11/13/17 12:45 (Pradaxa) 150 mg BID PO 11/13/17 09:00 11/13/17 09:00 (Valium) 5 mg BID PRN PO 11/13/17 05:45 (Benadryl) 50 mg Q6H PRN PO 11/13/17 05:45 (Colace) 100 mg TID PO 11/13/17 09:00 11/13/17 12:45 (Cymbalta Dr) 60 mg DAILY PO 11/13/17 09:00 11/13/17 08:59 (Lasix) 20 mg DAILY PO 11/13/17 09:00 11/13/17 09:00 (Neurontin) 160,000 mg TID PO 11/13/17 09:00 UNV (Cortef) 20 mg DAILY PO 11/13/17 09:00 11/13/17 09:25 (Atarax) 25 mg TID PRN PO 11/13/17 06:00 11/13/17 09:25 (Singulair) 10 mg DAILY PO 11/13/17 09:00 11/13/17 09:00 (Mycostatin Liq) 5 ml QID SWISH-SWAL 11/13/17 09:00 11/13/17 12:45 (Protonix) 40 mg DAILY PO 11/13/17 09:00 11/13/17 09:01 (Pravachol) 40 mg HS PO 11/13/17 21:00 Patient Own Medication PT OWN MED:Azelastine Nasal Sp... BID NASAL 11/13/17 06:30 Future hold ([place] 5-325 Mg) 1 tab Q6H PRN PO 11/13/17 06:15 11/13/17 09:24 Patient Own Medication PT OWN MED: Levocetirizine 5 MG DOS... DAILY PO 11/13/17 09:00 Future hold (Synthroid) 112 mcg DAILY@0600 PO 11/13/17 06:00 11/13/17 06:38 Patient Own Medication PT OWN MED: Linaclot... DAILY PO 11/13/17 09:00 Future Hold Patient Own Medication PT OWN MED: (Mirabeg... DAILY PO 11/13/17 09:00 Future Hold (Zofran Odt) 8 mg QID PRN PO 11/13/17 06:00 (Pepcid) 20 mg DAILY PO 11/13/17 09:00 11/13/17 09:00 (D50w (Vial) Inj) 50 ml UNSCH PRN IV PUSH 11/13/17 05:45 (Glucagon Inj) 1 mg UNSCH PRN OTHER 11/13/17 05:45 (NovoLOG SUPPLEMENTAL SCALE) 1 ACHS SLIDING SCALE SQ 11/13/17 08:00 11/13/17 12:00 (Synthroid) 25 mcg DAILY@0600 PO 11/13/17 06:00 11/13/17 06:38 (Cardizem) 30 mg QID PO 11/13/17 13:00 11/13/17 12:45 (Tambocor) 100 mg BID PO 11/13/17 21:00 UNV Family History father CABG and CVA, Mother CVA, sister CVA/AAA Social History , lives with , no ETOH, no tobacco (Lillian Watson) Physical Exam Vital Signs Vital Signs Date Time Temp Pulse Resp B/P (MAP) Pulse Ox O2 Delivery O2 Flow Rate FiO2 11/13/17 14:31 74 11/13/17 13:10 71 11/13/17 12:00 74 11/13/17 12:00 73 11/13/17 11:46 98.6 70 18 104/56 (72) 96 11/13/17 09:46 76 11/13/17 09:14 70 104/55 11/13/17 08:23 97.9 77 24 116/66 (83) 94 11/13/17 07:15 72 112/62 11/13/17 06:21 131 16 112/58 (76) 11/13/17 05:46 131 16 128/60 (82) 11/13/17 05:21 128 154/64 11/13/17 04:51 98.4 105 16 154/64 (94) 97 Room Air 11/13/17 03:24 98 16 155/66 (95) 97 Room Air 11/13/17 03:04 98.4 145 16 107/70 (82) 97 Room Air 11/13/17 02:49 139 25 11/13/17 02:47 97.9 150 18 118/79 (92) 96 Room Air Physical Exam GENERAL: Elderly female SKIN: Warm and dry. HEAD: Atraumatic. Normocephalic, VALADEZ FACIES. EYES: Pupils equal and round. No scleral icterus. ENT: No nasal bleeding or discharge. Mucous membranes pink and moist. NECK: Trachea midline. CARDIOVASCULAR: Regular rate and rhythm. RESPIRATORY: No accessory muscle use. Clear to auscultation. Breath sounds equal bilaterally. GASTROINTESTINAL: Abdomen soft, non-tender, nondistended. Central obesity MUSCULOSKELETAL: Extremities without clubbing, cyanosis, or edema. NEUROLOGICAL: Awake and alert. No obvious cranial nerve deficit Normal speech. PSYCHIATRIC: Appropriate mood and affect; insight and judgment normal. Laboratory Laboratory Tests Test 11/13/17 03:10 11/13/17 04:50 11/13/17 05:47 White Blood Count 13.5 Red Blood Count 5.53 Hemoglobin 14.4 Hematocrit 44.1 Mean Corpuscular Volume 79.7 Mean Corpuscular Hemoglobin 26.0 Mean Corpuscular Hemoglobin Concent 32.7 Red Cell Distribution Width 17.1 Platelet Count 298 Mean Platelet Volume 8.5 Neutrophils (%) (Auto) 65.6 Lymphocytes (%) (Auto) 23.7 Monocytes (%) (Auto) 9.2 Eosinophils (%) (Auto) 0.7 Basophils (%) (Auto) 0.8 Neutrophils # (Auto) 8.8 Lymphocytes # (Auto) 3.2 Monocytes # (Auto) 1.2 Eosinophils # (Auto) 0.1 Basophils # (Auto) 0.1 CBC Comment DIFF FINAL Differential Comment B-Type Natriuretic Peptide 107 Blood Urea Nitrogen 27 Creatinine 0.86 Random Glucose 169 Total Protein 5.7 Albumin 2.8 Calcium Level 9.1 Magnesium Level 2.2 Alkaline Phosphatase 72 Aspartate Amino Transf (AST/SGOT) 35 Alanine Aminotransferase (ALT/SGPT) 29 Total Bilirubin 0.3 Sodium Level 143 Potassium Level 4.0 Chloride Level 108 Carbon Dioxide Level 27.3 Anion Gap 8 Estimat Glomerular Filtration Rate 65 Total Creatine Kinase 157 Creatine Kinase MB 2.7 Troponin I 0.02 Lipase 178 Prothrombin Time 11.2 Prothromb Time International Ratio 1.1 Activated Partial Thromboplast Time 32.2 (Lillian Watson) Result Diagram: 11/13/17 0310 11/13/17 0450 Imaging Last 72 hours Impressions Chest X-Ray 11/13/17 0259 Signed Impressions: Service Date/Time: Monday, November 13, 2017 03:19 - CONCLUSION: 1. Cardiomegaly. No acute pulmonary disease. Javier Galeano MD (Lillian Watson) Assessment and Plan Assessment and Plan Atrial fibrillation with RVR with history of CVA on Pradaxa and flecinide 50 mg BID Atypical chest pain in a patient without ASHD and negative nuclear stress test 2014 Normal EF 59% 01/2016 IDDM HLD PLAN Repeat troponin and 12 lead EKG now. If normal, discontinue nitro paste Increase flecainide 100 BID with close monitoring. We will repeat 12 lead EKG in the AM to check QT If the patient remains stable, we will plan to discharge the patient tomorrow with outpatient followup and ischemic work up The patient was seen and evaluated by Dr Blankenship who completed face to face encounter and physical exam and participated in evaluation and management. (Lillian Watson) Assessment and Plan The exam, history, and the medical decision-making described in the above note were completed with the assistance of the mid-level provider. I reviewed and agree with the findings presented. I attest that I had a [id number] encounter with the patient on the same day, and personally performed and documented my assessment and findings in the medical record. Doing better now in Sr will increase flecainide , watch for proarrhythmia and consider d/c tomorrow (Tari Blankenship MD) Lillian Watson Nov 13, 2017 15:21 Tari Blankenship MD Nov 15, 2017 14:05
--- NOTE | 2017-11-13 16:26 | EKG ---
Date Performed: 11/13/2017 Time Performed: 02:50:38 PTAGE: 72 years EKG: ATRIAL FIBRILLATION WITH RAPID VENTRICULAR RESPONSE SEPTAL MYOCARDIAL INFARCTION ABNORMAL E CG INTERPRETATION BASED ON A DEFAULT AGE OF 41 YEARS PREVIOUS TRACING 08/05/16 Atrial fibrillation new since prior tracing. ST-T wave change a re noted, cannot rule out ischemia. DOCTOR: Godwin Luna Interpretating Date/Time 11/13/2017 16:24:50
[2017-11-13] MEDS: GABAPENTIN 400 MG CAP PO SCH (18:00)
--- NOTE | 2017-11-13 20:11 | HHI.HP ---
[facility] Kaylan Gu MD Admission Diagnosis afib with rvr, cp ro acs Diagnoses: Travel History International Travel<30 Days: No Contact w/Intl Traveler <30 Da: No Traveled to Known Affected Are: No History of Present Illness 72-year-old female with history of atrial fibrillation, patent foramen ovale closure, CVA, hyperlipidemia, diabetes Patient reports sudden onset palpitations , and dull chest discomfort last night around 1 AM. She reports that this has improved greatly. She does report feeling lightheaded over the past month, typically when standing suddenly. She denies any fevers, chills, nausea, vomiting Review of Systems patient reports chronic diffuse pain. Otherwise performed and negative except for HPI and past medical history. Past Family Social History Past Medical History Atrial fibrillation CVA Carotid stenosis Hypertension Hyperlipidemia Diabetes mellitus Hypothyroidism GERD COPD Adrenal insufficiency Lupus Polycythemia thought to be secondary to untreated sleep apnea Past Surgical History Right shoulder 2016 Neck surgery 2013, 2015 Back surgery 2008 Rotator cuff surgery done 7 Cholecystectomy 4 PFO closure Reported Medications Reported Meds & Active Scripts Active Reported Zinc Gluconate 50 Mg Tab 50 Mg PO DAILY [tumeric] 1 Tab PO BID Synthroid (Levothyroxine Sodium) 137 Mcg Tab 137 Mcg PO DAILY Stool Softener (Docusate Sodium) 100 Mg Cap 1 Tab PO TID Risedronate 150 Mg Tab 150 Mg PO Q30D Ranitidine (Ranitidine HCl) 150 Mg Tab 150 Mg PO DAILY Proair Respiclick Inh (Albuterol Sulfate) 90 Mcg/Act Aerp 1 Puff INH Q4H PRN Nystatin Liq 100,000 unit/ml Susp 5 Ml SWISH-SWAL QID Nitrostat SL (Nitroglycerin) 0.4 Mg Subl 0.4 Mg SL DIRECTED PRN 1 tablet under the tongue as needed for chest pain. Repeat every 5 minutes for a total of 3 DOSES or call 911 if NO relief. [midrin] 1 Cap PO DIRECTED Meclizine (Meclizine HCl) 25 Mg Tab 25 Mg PO TID PRN Lunesta (Eszopiclone) 2 Mg Tab 3 Mg PO HS PRN Linzess (Linaclotide) 290 Mcg Cap 290 Mcg PO DAILY Klor-Con 10 (Potassium Chloride) 10 Meq Tab 10 Meq PO ONCE Hydrocortisone 20 Mg Tab 20 Mg PO DAILY Take with food to decrease GI upset Hair Skin & Nails (Biotin W/ Vitamins C & E) 1,250-7.5-7.5 Mcg-Mg-Unit Chew 1 Tab PO TID Gabapentin 400 Mg Cap 400 Cap PO TID [formula 303] 1 Tab PO DAILY Folic Acid 0.8 Mg Tab 1 Mg PO DAILY Estrace Vaginal (Estradiol) 0.01% Cream 1 Appl VAGINAL HS Duloxetine DR (Duloxetine HCl) 60 Mg Capdr 60 Mg PO DAILY Diazepam 5 Mg Tab 5 Mg PO BID PRN Dexamethasone Sodium Phosphate Inj (Dexamethasone Sod Phosphate Inj) 4 Mg/Ml Vial 4 Mg IM ONCE Eql Cinnamon (Cinnamon) 500 Mg Cap 1,000 Mg PO BID Celecoxib 200 Mg Cap 200 Mg PO DAILY Biotin 5,000 Mcg Tab.rapdis 1 Tab PO QID Bethanechol 25 Mg Tab 25 Mg PO QID Diphenhydramine (Diphenhydramine HCl) 25 Mg Tab 50 Mg PO Q6H PRN Azelastine Nasal [place] (Azelastine HCl) 0.15% [place] 1 [place] EACH NARE BID To each nostril. Aspirin 81 Mg Chew 81 Mg CHEW DAILY Levocetirizine 5 Mg Tab 5 Mg PO DAILY Cortef (Hydrocortisone) 5 Mg Tab 5 Mg PO DIRECTED 12Noon & 5pm take with food to decrease GI upset. Pravastatin 40 Mg Tab 40 Mg PO HS Farxiga (Dapagliflozin) 10 Mg Tab 10 Mg PO DAILY Singulair (Montelukast Sodium) 10 Mg Tab 10 Mg PO DAILY Pradaxa (Dabigatran) 150 Mg Cap 150 Mg PO BID Protonix (Pantoprazole Sodium) 40 Mg Tab 40 Mg PO DAILY Ondansetron (Ondansetron HCl) 8 Mg Tab 8 Mg PO QID PRN Myrbetriq (Mirabegron) 50 Mg Tab 25 Mg PO DAILY Victoza Inj (Liraglutide Inj) 18 Mg/3 Ml Pen 1.8 Mg SQ DAILY Hydroxyzine HCl 50 Mg Tab 25 Mg PO TID PRN Hydrocodone-Acetaminophen 5-300 Mg Tab 1 Tab PO Q6H PRN Furosemide 20 Mg Tab 20 Mg PO DAILY Flecainide (Flecainide Acetate) 50 Mg Tab 50 Mg PO BID PRN Clotrimazole Stephon (Clotrimazole) 10 Mg Troc 10 Mg PO QID PRN Vitamin D3 (Cholecalciferol) 10,000 Unit Tab 50,000 Units PO HS Allergies: Coded Allergies: Sulfa (Sulfonamide Antibiotics) (Unverified Allergy, Severe, N/V, 06/19/17) acetaminophen (Unverified Allergy, Severe, red rash and hives, 06/19/17) amitriptyline (Unverified Allergy, Severe, red,rash and hives, 06/19/17) baclofen (Unverified Allergy, Severe, itch,rash and hives, 06/19/17) carisoprodol (Unverified Allergy, Severe, red,rash,hives, 06/19/17) cyclobenzaprine (Unverified Allergy, Severe, Hives, 06/19/17) diatrizoate meglumine (Unverified Allergy, Severe, HIVES, ITCH, 06/19/17) doxycycline (Unverified Allergy, Severe, red,rash,hives, 06/19/17) esomeprazole (Unverified Allergy, Severe, HIVES, 06/19/17) gadobenic acid (Unverified Allergy, Severe, HIVES, ITCH, 06/19/17) gadodiamide (Unverified Allergy, Severe, HIVES, ITCH, 06/19/17) gadoteridol (Unverified Allergy, Severe, HIVES, ITCH, 06/19/17) hydrocodone (Unverified Allergy, Severe, red rash and hives, 06/19/17) hydromorphone (Unverified Allergy, Severe, Hives, 06/19/17) hydroxychloroquine (Unverified Allergy, Severe, Rash, 06/19/17) iodine (Unverified Allergy, Severe, HIVES, ITCH, 06/19/17) iodixanol (Unverified Allergy, Severe, HIVES, ITCH, 06/19/17) iohexol (Unverified Allergy, Severe, HIVES, ITCH, 06/19/17) levofloxacin (Unverified Allergy, Severe, Seizures, 06/19/17) metaxalone (Unverified Allergy, Severe, Hives, 06/19/17) metformin (Unverified Allergy, Severe, HIVES, 06/19/17) methocarbamol (Unverified Allergy, Severe, RASH,HIVES, 06/19/17) morphine (Unverified Allergy, Severe, Hives, 06/19/17) oxycodone (Unverified Allergy, Severe, red rash and hives, 06/19/17) penicillin G (Unverified Allergy, Severe, red rash and hives, 06/19/17) potassium iodide (Unverified Allergy, Severe, HIVES, ITCH, 06/19/17) povidone-iodine (Unverified Allergy, Severe, HIVES, ITCH, 06/19/17) pregabalin (Unverified Allergy, Severe, Numbness, 06/19/17) sodium iodide (Unverified Allergy, Severe, HIVES, ITCH, 06/19/17) sodium iodide (Unverified Allergy, Severe, HIVES, ITCH, 06/19/17) sulfamethoxazole (Unverified Allergy, Severe, N/V, 06/19/17) topiramate (Unverified Allergy, Severe, red rash and hives, 06/19/17) trimethoprim (Unverified Allergy, Severe, N/V, 06/19/17) lovastatin (Unverified Adverse Reaction, Severe, ALOVASTATIN + NIACIN = ADVICOR (SIDE EFFECT FLUSHING), 06/19/17) niacin (Unverified Adverse Reaction, Severe, NIACIN + LOVASTATIN = ADVICOR (SIDE EFFECT FLUSHING), 06/19/17) Uncoded Allergies: ONGLYZA (Allergy, Mild, FEET SWELLING, 09/26/13) TRAJENTA (Allergy, Mild, FEET SWELLING, 09/26/13) GLUCAVANCE (Allergy, Unknown, UNKNOWN, 03/01/14) MOST ANTIBIOTICS (Allergy, Unknown, UNKNOWN, 03/01/14) BYDUREON (Adverse Reaction, Unknown, SWELLING, 03/01/14) Family History Father with coronary artery disease. Mother with stroke. Sister with abdominal aortic aneurysm, CVA Social History Nonsmoker. Nondrinker. Denies illicit drugs. Physical Exam Vital Signs Vital Signs Date Time Temp Pulse Resp B/P (MAP) Pulse Ox O2 Delivery O2 Flow Rate FiO2 1/9/18 18:00 72 11/13/17 16:00 98.5 64 20 126/78 (94) 96 11/13/17 14:31 74 11/13/17 13:10 71 11/13/17 12:00 74 11/13/17 12:00 73 11/13/17 11:46 98.6 70 18 104/56 (72) 96 11/13/17 09:46 76 11/13/17 09:14 70 104/55 11/13/17 08:23 97.9 77 24 116/66 (83) 94 11/13/17 07:15 72 112/62 11/13/17 06:21 131 16 112/58 (76) 11/13/17 05:46 131 16 128/60 (82) 11/13/17 05:21 128 154/64 11/13/17 04:51 98.4 105 16 154/64 (94) 97 Room Air 11/13/17 03:24 98 16 155/66 (95) 97 Room Air 11/13/17 03:04 98.4 145 16 107/70 (82) 97 Room Air 11/13/17 02:49 139 25 11/13/17 02:47 97.9 150 18 118/79 (92) 96 Room Air Physical Exam GENERAL: This is a well-nourished, well-developed patient, in no apparent distress. SKIN: No rashes, ecchymoses or lesions. Cool and dry. HEAD: Atraumatic. Normocephalic. No temporal or scalp tenderness. EYES: Pupils equal round and reactive. Extraocular motions intact. No scleral icterus. No injection or drainage. ENT: Nose without bleeding, purulent drainage or septal hematoma. Throat without erythema, tonsillar hypertrophy or exudate. Uvula midline. Airway patent. NECK: Trachea midline. No JVD or lymphadenopathy. Supple, nontender, no meningeal signs. CARDIOVASCULAR: Regular rate and rhythm without murmurs, gallops, or rubs. RESPIRATORY: Clear to auscultation. Breath sounds equal bilaterally. No wheezes , rales, or rhonchi. GASTROINTESTINAL: Abdomen soft, non-tender, nondistended. No hepato-splenomegaly , or palpable masses. No guarding. MUSCULOSKELETAL: Extremities without clubbing, cyanosis, or edema. No joint tenderness, effusion, or edema noted. No calf tenderness. Negative Homans sign bilaterally. NEUROLOGICAL: Awake and alert. Cranial nerves II through XII intact. Motor and sensory grossly within normal limits. Five out of 5 muscle strength in all muscle groups. Normal speech. Laboratory Laboratory Tests Test 11/13/17 03:10 11/13/17 04:50 11/13/17 05:47 White Blood Count 13.5 Red Blood Count 5.53 Hemoglobin 14.4 Hematocrit 44.1 Mean Corpuscular Volume 79.7 Mean Corpuscular Hemoglobin 26.0 Mean Corpuscular Hemoglobin Concent 32.7 Red Cell Distribution Width 17.1 Platelet Count 298 Mean Platelet Volume 8.5 Neutrophils (%) (Auto) 65.6 Lymphocytes (%) (Auto) 23.7 Monocytes (%) (Auto) 9.2 Eosinophils (%) (Auto) 0.7 Basophils (%) (Auto) 0.8 Neutrophils # (Auto) 8.8 Lymphocytes # (Auto) 3.2 Monocytes # (Auto) 1.2 Eosinophils # (Auto) 0.1 Basophils # (Auto) 0.1 CBC Comment DIFF FINAL Differential Comment B-Type Natriuretic Peptide 107 Blood Urea Nitrogen 27 Creatinine 0.86 Random Glucose 169 Total Protein 5.7 Albumin 2.8 Calcium Level 9.1 Magnesium Level 2.2 Alkaline Phosphatase 72 Aspartate Amino Transf (AST/SGOT) 35 Alanine Aminotransferase (ALT/SGPT) 29 Total Bilirubin 0.3 Sodium Level 143 Potassium Level 4.0 Chloride Level 108 Carbon Dioxide Level 27.3 Anion Gap 8 Estimat Glomerular Filtration Rate 65 Total Creatine Kinase 157 Creatine Kinase MB 2.7 Troponin I 0.02 Lipase 178 Prothrombin Time 11.2 Prothromb Time International Ratio 1.1 Activated Partial Thromboplast Time 32.2 Result Diagram: 11/13/17 0310 11/13/17 0450 Imaging Last Impressions Chest X-Ray 11/13/17 0259 Signed Impressions: Service Date/Time: Monday, November 13, 2017 03:19 - CONCLUSION: 1. Cardiomegaly. No acute pulmonary disease. MD Elliott Dhillon VTE Risk Assessment Elliott VTE Risk Assessment: Mod/High Risk (score >= 2) Marnii Risk Assessment Model Point Value = 1 Point Value = 2 Point Value = 3 Point Value = 5 Age 41-60 Minor surgery BMI > 25 kg/m2 Swollen legs Varicose veins or History of unexplained or recurrent spontaneous Oral contraceptives or hormone replacement Sepsis (< 1 month) Serious lung disease, including pneumonia (< 1 month) Abnormal pulmonary function Acute myocardial infarction Congestive heart failure (< 1 month) History of inflammatory bowel disease Medical patient at bed rest Age 61-74 Arthroscopic surgery Major open surgery (> 45 min) Laparoscopic surgery (> 45 min) Malignancy Confined to bed (> 72 hours) Immobilizing plaster cast Central venous access Age >= 75 History of VTE Family history of VTE Factor V Leiden Prothrombin [id number] Lupus anticoagulant Anticardiolipin antibodies Elevated serum homocysteine Heparin-induced thrombocytopenia Other congenital or acquired thrombophilia Stroke (< 1 month) Elective arthroplasty Hip, pelvis, or leg fracture Acute spinal cord injury (< 1 month) Prophylaxis Regimen Total Risk Factor Score Risk Level Prophylaxis Regimen 0-1 Low Early ambulation 2 Moderate Order ONE of the following: *Sequential Compression Device (SCD) *Heparin 5000 units SQ BID 3-4 Higher Order ONE of the following medications: *Heparin 5000 units SQ TID *Enoxaparin/Lovenox 40 mg SQ daily (WT < 150 kg, CrCl > 30 mL/min) *Enoxaparin/Lovenox 30 mg SQ daily (WT < 150 kg, CrCl > 10-29 mL/min) *Enoxaparin/Lovenox 30 mg SQ BID (WT < 150 kg, CrCl > 30 mL/min) AND/OR *Sequential Compression Device (SCD) 5 or more Highest Order ONE of the following medications: *Heparin 5000 units SQ TID (Preferred with Epidurals) *Enoxaparin/Lovenox 40 mg SQ daily (WT < 150 kg, CrCl > 30 mL/min) *Enoxaparin/Lovenox 30 mg SQ daily (WT < 150 kg, CrCl > 10-29 mL/min) *Enoxaparin/Lovenox 30 mg SQ BID (WT < 150 kg, CrCl > 30 mL/min) AND *Sequential Compression Device (SCD) Assessment and Plan Assessment and Plan //Atrial fibrillation with RVR. Improved on diltiazem. Continue home flecainide. Cardiology consulted. Appreciate assistance. TSH level ordered and pending. //Adrenal insufficiency. Continue by mouth steroids. //leukocytosis. 13. Likely secondary to stress. No signs of infection. //Diabetes mellitus. Insulin sliding scale and diabetic diet. //Chronic conditions, including hypothyroidism, hyperlipidemia, GERD. Continue home medications as appropriate. Discussed Condition With patient, nurse. Physician Certification 2 Midnight Certification Type: Admission for Inpatient Services Order for Inpatient Services The services are ordered in accordance with Medicare regulations or non- Medicare payer requirements, as applicable. In the case of services not specified as inpatient-only, they are appropriately provided as inpatient services in accordance with the 2-midnight benchmark. Estimated LOS (days): 2 days is the estimated time the patient will need to remain in the hospital, assuming treatment plan goals are met and no additional complications. Post-Hospital Plan: Home Jovanny Ritchie MD Nov 13, 2017 20:11
[2017-11-13] MEDS: FLECAINIDE ACETATE 100 MG TAB PO SCH (20:54)
[2017-11-13] MEDS: AZELASTINE NASAL SCH (20:55)
[2017-11-13] MEDS ORDERED: PRAVASTATIN SOD 40 MG TAB PO SCH (21:00)
[2017-11-13 22:19] LABS: TROPONIN I 0.05 NG/ML (0.02-0.05)
[2017-11-14] VITALS (12 sets, daily range): BP systolic 119–147; BP diastolic 65–84; PULSE 68–79; RESP 12–20; TEMP 97.5–98.5; O2SAT 94–97
[2017-11-14] MEDS: LEVOTHYROXINE SODIUM 25 MCG TAB PO SCH (06:05)
[2017-11-14] MEDS: LEVOTHYROXINE SODIUM 112 MCG TAB PO SCH (06:05)
[2017-11-14 06:32] LABS: AUTOMATED NEUTROPHIL # 5.6 TH/MM3 (1.8-7.7); BASOPHIL % 0.4 % (0.0-2.0); EOSINOPHIL # 0.1 TH/MM3 (0-0.4); EOSINOPHIL % 1.3 % (0.0-4.0); HEMATOCRIT 40.1 % (35.0-46.0); LYMPH % 25.3 % (9.0-44.0); LYMPHOCYTE # 2.2 TH/MM3 (1.0-4.8); MEAN CELL VOLUME 79.5 FL (80.0-100.0); MEAN CORPUSCULAR HEMOGLOBIN 25.8 PG (27.0-34.0); MEAN CORPUSCULAR HGB CONC 32.5 % (32.0-36.0); MEAN PLATELET VOLUME 8.1 FL (7.0-11.0); MONO % 8.8 % (0.0-8.0); MONOCYTE # 0.8 TH/MM3 (0-0.9); NEUT % 64.2 % (16.0-70.0); PLATELET COUNT 266 TH/MM3 (150-450); RED BLOOD COUNT 5.04 MIL/MM3 (4.00-5.30); RED CELL DISTRIBUTION WIDTH 16.5 % (11.6-17.2); WHITE BLOOD COUNT 8.8 TH/MM3 (4.0-11.0)
[2017-11-14 06:57] LABS: BICARBONATE 32.1 MEQ/L (21.0-32.0); CALCIUM 8.4 MG/DL (8.5-10.1); CREATININE 0.69 MG/DL (0.50-1.00)
[2017-11-14 07:00] LABS: TROPONIN I 0.04 NG/ML (0.02-0.05)
[2017-11-14] MEDS: INSULIN ASPART SUPPLEMENTAL SCALE SQ SCH ×2 (08:00→13:27)
[2017-11-14] MEDS: DABIGATRAN ETEXILATE 150 MG CAP PO SCH (09:30)
[2017-11-14] MEDS: NYSTATIN SUSP 500,000 U/5 ML CUP SWISH-SWAL SCH ×2 (09:30→13:26)
[2017-11-14] MEDS: DOCUSATE SODIUM 100 MG CAP PO SCH ×2 (09:30→13:26)
[2017-11-14] MEDS: FAMOTIDINE 20 MG TAB PO SCH (09:30)
[2017-11-14] MEDS: GABAPENTIN 400 MG CAP PO SCH ×2 (09:31→13:26)
[2017-11-14] MEDS: BETHANECHOL CHL 25 MG TAB PO SCH ×2 (09:31→13:26)
[2017-11-14] MEDS: FUROSEMIDE 20 MG TAB PO SCH (09:31)
[2017-11-14] MEDS: DILTIAZEM HCL 30 MG TAB PO SCH ×2 (09:31→13:26)
[2017-11-14] MEDS: MONTELUKAST SODIUM 10 MG TAB PO SCH (09:31)
[2017-11-14] MEDS: PANTOPRAZOLE SOD 40 MG DELAYED RELEASE TAB PO SCH (09:31)
[2017-11-14] MEDS: HYDROCORTISONE 10 MG TAB PO SCH (09:32)
[2017-11-14] MEDS: FLECAINIDE ACETATE 100 MG TAB PO SCH (09:32)
[2017-11-14] MEDS: ASPIRIN 81 MG CHEW TAB CHEW SCH (09:32)
[2017-11-14] MEDS: AZELASTINE NASAL SCH (09:34)
[2017-11-14] MEDS: DULoxetine HCl DR 60 MG CAP PO SCH (09:41)
[2017-11-14] MEDS: hydrOXYzine HCL 25 MG TAB PO PRN (10:10)
[2017-11-14] MEDS: ACETAMINOPHEN/HYDROcodone 325 MG/5 MG TAB PO PRN (10:10)
[2017-11-14] MEDS ORDERED: TURM500C7 PO (10:52)
--- NOTE | 2017-11-14 11:25 | PD.CARD.PN ---
Subjective Subjective Remarks NSR on EKG. QTc stable with increased flecainide. No chest pain/burning since NTG paste discontinued. Still has mid back pain reproducible with palpation. (Lillian Watson) Objective Medications Current Medications Medications (Trade) Dose Ordered Sig/Shirley Route Start Time Stop Time Status Last Admin (NS Flush) 2 ml UNSCH PRN IV FLUSH 11/13/17 05:45 (NS Flush) 2 ml BID IV FLUSH 11/13/17 09:00 11/13/17 20:55 (Narcan Inj) 0.4 mg UNSCH PRN IV PUSH 11/13/17 05:45 (Aspirin Chew) 81 mg DAILY CHEW 11/13/17 09:00 11/14/17 09:32 (Urecholine) 25 mg QID PO 11/13/17 09:00 11/14/17 09:31 (Pradaxa) 150 mg BID PO 11/13/17 09:00 11/14/17 09:30 (Valium) 5 mg BID PRN PO 11/13/17 05:45 11/13/17 20:54 (Benadryl) 50 mg Q6H PRN PO 11/13/17 05:45 11/13/17 16:41 (Colace) 100 mg TID PO 11/13/17 09:00 11/14/17 09:30 (Cymbalta Dr) 60 mg DAILY PO 11/13/17 09:00 11/14/17 09:41 (Lasix) 20 mg DAILY PO 11/13/17 09:00 11/14/17 09:31 (Neurontin) 400 mg TID PO 11/13/17 09:00 11/14/17 09:31 (Cortef) 20 mg DAILY PO 11/13/17 09:00 11/14/17 09:32 (Atarax) 25 mg TID PRN PO 11/13/17 06:00 11/14/17 10:10 (Singulair) 10 mg DAILY PO 11/13/17 09:00 11/14/17 09:31 (Mycostatin Liq) 5 ml QID SWISH-SWAL 11/13/17 09:00 11/14/17 09:30 (Protonix) 40 mg DAILY PO 11/13/17 09:00 11/14/17 09:31 (Pravachol) 40 mg HS PO 11/13/17 21:00 11/13/17 20:54 Patient Own Medication PT OWN MED:Azelastine Nasal Sp... BID NASAL 11/13/17 06:30 Future hold 11/14/17 09:34 ([place] 5-325 Mg) 1 tab Q6H PRN PO 11/13/17 06:15 11/14/17 10:10 Patient Own Medication PT OWN MED: Levocetirizine 5 MG DOS... DAILY PO 11/13/17 09:00 Future hold 11/14/17 09:32 (Synthroid) 112 mcg DAILY@0600 PO 11/13/17 06:00 11/14/17 06:05 Patient Own Medication PT OWN MED: Linaclot... DAILY PO 11/13/17 09:00 Future Hold Patient Own Medication PT OWN MED: (Mirabeg... DAILY PO 11/13/17 09:00 Future Hold (Zofran Odt) 8 mg QID PRN PO 11/13/17 06:00 (Pepcid) 20 mg DAILY PO 11/13/17 09:00 11/14/17 09:30 (D50w (Vial) Inj) 50 ml UNSCH PRN IV PUSH 11/13/17 05:45 (Glucagon Inj) 1 mg UNSCH PRN OTHER 11/13/17 05:45 (NovoLOG SUPPLEMENTAL SCALE) 1 ACHS SLIDING SCALE SQ 11/13/17 08:00 11/13/17 20:58 (Synthroid) 25 mcg DAILY@0600 PO 11/13/17 06:00 11/14/17 06:05 (Cardizem) 30 mg QID PO 11/13/17 13:00 11/14/17 09:31 (Tambocor) 100 mg BID PO 11/13/17 21:00 11/14/17 09:32 Vital Signs / I&O Vital Signs Date Time Temp Pulse Resp B/P (MAP) Pulse Ox O2 Delivery O2 Flow Rate FiO2 11/14/17 08:25 97.6 74 14 147/79 (101) 97 11/14/17 05:00 73 11/14/17 04:00 73 11/14/17 03:49 98.3 76 17 144/84 (104) 95 1/10/18 03:00 75 11/14/17 02:00 69 11/14/17 01:00 71 11/14/17 00:17 98.5 72 16 129/73 (91) 94 11/14/17 00:00 68 11/13/17 23:00 70 11/13/17 22:00 73 11/13/17 22:00 69 11/13/17 21:00 77 11/13/17 20:30 97.6 78 19 114/66 (82) 97 11/13/17 19:00 75 11/13/17 18:00 72 11/13/17 16:00 98.5 64 20 126/78 (94) 96 11/13/17 14:31 74 11/13/17 13:10 71 11/13/17 12:00 74 11/13/17 12:00 73 11/13/17 11:46 98.6 70 18 104/56 (72) 96 I/O 11/13/17 11/13/17 11/13/17 11/14/17 11/14/17 11/14/17 07:00 15:00 23:00 07:00 15:00 23:00 Intake Total 500 ml 240 ml Balance 500 ml 240 ml Intake Oral 240 ml IV Total 500 ml # Voids 2 Physical Exam GENERAL: Elderly female up in the chair SKIN: Warm and dry. HEAD: Normocephalic. Unger facies EYES: No scleral icterus. No injection or drainage. NECK: Supple, trachea midline. CARDIOVASCULAR: Regular rate and rhythm without obvious murmurs, gallops, or rubs. RESPIRATORY: Breath sounds equal bilaterally. No accessory muscle use. GASTROINTESTINAL: Abdomen soft, non-tender, nondistended. MUSCULOSKELETAL: No cyanosis, or edema. BACK: Nontender without obvious deformity. No CVA tenderness. Laboratory Laboratory Tests Test 11/13/17 21:23 11/14/17 04:44 Total Creatine Kinase 127 U/L 86 U/L Troponin I 0.05 NG/ML 0.04 NG/ML Thyroid Stimulating Hormone 3rd Gen 1.050 uIU/ML White Blood Count 8.8 TH/MM3 Red Blood Count 5.04 MIL/MM3 Hemoglobin 13.0 GM/DL Hematocrit 40.1 % Mean Corpuscular Volume 79.5 FL Mean Corpuscular Hemoglobin 25.8 PG Mean Corpuscular Hemoglobin Concent 32.5 % Red Cell Distribution Width 16.5 % Platelet Count 266 TH/MM3 Mean Platelet Volume 8.1 FL Neutrophils (%) (Auto) 64.2 % Lymphocytes (%) (Auto) 25.3 % Monocytes (%) (Auto) 8.8 % Eosinophils (%) (Auto) 1.3 % Basophils (%) (Auto) 0.4 % Neutrophils # (Auto) 5.6 TH/MM3 Lymphocytes # (Auto) 2.2 TH/MM3 Monocytes # (Auto) 0.8 TH/MM3 Eosinophils # (Auto) 0.1 TH/MM3 Basophils # (Auto) 0.0 TH/MM3 CBC Comment DIFF FINAL Differential Comment Blood Urea Nitrogen 21 MG/DL Creatinine 0.69 MG/DL Random Glucose 115 MG/DL Calcium Level 8.4 MG/DL Sodium Level 142 MEQ/L Potassium Level 3.7 MEQ/L Chloride Level 103 MEQ/L Carbon Dioxide Level 32.1 MEQ/L Anion Gap 7 MEQ/L Estimat Glomerular Filtration Rate 84 ML/MIN Imaging Last 72 hours Impressions Chest X-Ray 11/13/17 0259 Signed Impressions: Service Date/Time: Monday, November 13, 2017 03:19 - CONCLUSION: 1. Cardiomegaly. No acute pulmonary disease. Jvaier Galeano MD (Lillian Watson) Assessment and Plan Assessment and Plan Atrial fibrillation with RVR with history of CVA on Pradaxa and flecinide 50 mg BID Atypical chest pain in a patient without ASHD and negative nuclear stress test 2014 Normal EF 59% 01/2016 IDDM HLD PLAN The patient is clear for discharge from a cardiac standpoint. She has an appt . Will will plan ischemic work up outpatient. The patient was seen and evaluated by Dr Blankenship who completed face to face encounter and physical exam and participated in evaluation and management. (Lillian Watson) Assessment and Plan Stable on flecainide will discharge (Tari Blankenship MD) Lillian Watson Nov 14, 2017 11:24 Tari Blankenship MD Nov 15, 2017 14:08
[2017-11-14] MEDS ORDERED: FLEC100T PO (12:31)
[2017-11-14] MEDS ORDERED: CARD120C4 PO (12:31)
--- NOTE | 2017-11-14 12:34 | HHI.PR ---
Subjective Remarks Follow up for Afib. Cardiology evaluated patient and cleared for discharge. Patient is currently doing well. No chest pain, fever, chills. Objective Vitals Vital Signs Date Time Temp Pulse Resp B/P (MAP) Pulse Ox O2 Delivery O2 Flow Rate FiO2 11/14/17 11:58 97.5 79 12 119/65 (83) 97 11/14/17 08:25 97.6 74 14 147/79 (101) 97 11/14/17 05:00 73 11/14/17 04:00 73 11/14/17 03:49 98.3 76 17 144/84 (104) 95 11/14/17 03:00 75 11/14/17 02:00 69 11/14/17 01:00 71 11/14/17 00:17 98.5 72 16 129/73 (91) 94 11/14/17 00:00 68 11/13/17 23:00 70 11/13/17 22:00 73 11/13/17 22:00 69 11/13/17 21:00 77 11/13/17 20:30 97.6 78 19 114/66 (82) 97 11/13/17 19:00 75 11/13/17 18:00 72 11/13/17 16:00 98.5 64 20 126/78 (94) 96 11/13/17 14:31 74 11/13/17 13:10 71 I/O 11/13/17 11/13/17 11/13/17 11/14/17 11/14/17 11/14/17 07:00 15:00 23:00 07:00 15:00 23:00 Intake Total 500 ml 240 ml Balance 500 ml 240 ml Intake Oral 240 ml IV Total 500 ml # Voids 2 Result Diagram: 11/14/17 0444 11/14/17 0444 Imaging Last Impressions Chest X-Ray 11/13/17 0259 Signed Impressions: Service Date/Time: Monday, November 13, 2017 03:19 - CONCLUSION: 1. Cardiomegaly. No acute pulmonary disease. Javier Galeano MD Objective Remarks GENERAL: Alert, Oriented x 3 NAD. SKIN: Warm and dry. HEAD: Normocephalic. EYES: No scleral icterus. No injection or drainage. NECK: Supple, trachea midline. No JVD or lymphadenopathy. CARDIOVASCULAR: Regular rate and rhythm without murmurs, gallops, or rubs. RESPIRATORY: Breath sounds equal bilaterally. No accessory muscle use. GASTROINTESTINAL: Abdomen soft, non-tender, nondistended. MUSCULOSKELETAL: No cyanosis, or edema. BACK: Nontender without obvious deformity. No CVA tenderness. A/P Assessment and Plan //Atrial fibrillation with RVR. Improved on diltiazem. Continue home flecainide. Cardiology consulted and increased flecainide. //Adrenal insufficiency. Continue by mouth steroids. //leukocytosis. 13. Likely secondary to stress. No signs of infection. //Diabetes mellitus. Insulin sliding scale and diabetic diet. //Chronic conditions, including hypothyroidism, hyperlipidemia, GERD. Continue home medications as appropriate. Discharge patient to home Condition on discharge: Improved Regular Diet as tolerated Ad Claudia activity Rx written: Cardizem 120mg Qday Flecainide 100mg BID Follow-up with primary care physician ELISSA, Cardiology at the end of this month Myles Lam DO Nov 14, 2017 12:34
--- NOTE | 2017-11-14 15:19 | HHI.FF ---
Face to Face Verification Diagnosis: (1) History of atrial fibrillation Physical Therapy Order: Evaluate and Treat, Improve ambulation, Strength and gait training Home Health Nursing Order: Medical education Signs/symptoms of disease process Oxygen administration education Nursing assessment with vital signs I have seen patient Eliza Adkins on 11/14/17. My clinical findings support the need for the requested home health care services because: Deconditioned w/ increased weakness Limited ability to care for self Need for psychosocial assistance High risk of falls Infection w/ risk of complications I certify that my clinical findings support that this patient is homebound because: Impaired cognitive ability/safety Unsafe to leave home unassisted Unable to use public transportation Myles Lam DO Nov 14, 2017 3:19 pm
--- NOTE | 2017-11-14 21:12 | EKG ---
Date Performed: 11/14/2017 Time Performed: 05:48:20 PTAGE: 72 years EKG: Sinus rhythm Possible anterior infarct - age undetermined Inferior T wave changes are nonspecific Abnormal ECG PREVIOUS TRACING : 11/13/2017 22.48 Compared to prior tracing no significant change DOCTOR: Clovis Do Interpretating Date/Time 11/14/2017 21:11:52
--- NOTE | 2017-11-14 21:33 | EKG ---
Date Performed: 11/13/2017 Time Performed: 22:48:28 PTAGE: 72 years EKG: Sinus rhythm Inferior T wave changes are nonspecific Borderline ECG PREVIOUS TRACING : 11/13/2017 16.43 Compared to prior tracing no significant change DOCTOR: Clovis Do Interpretating Date/Time 11/14/2017 21:32:53
--- NOTE | 2017-11-14 22:02 | EKG ---
Date Performed: 11/13/2017 Time Performed: 16:43:34 PTAGE: 72 years EKG: Sinus rhythm Inferior T wave changes are nonspecific Borderline ECG PREVIOUS TRACING : 11/13/2017 02.50 Compared to the previous tracing a fib no longer present DOCTOR: Clovis Do Interpretating Date/Time 11/14/2017 22:01:20
== END 2017-11-14 14:50 | disposition home health service (06) | DRG 309 ==
LOC: NEPC 02:45 → NEDA 05:36 → HCIS 07:00
PROVIDERS: ADMIT Hospitalist; ATTEND Hospitalist
DX: I48.91 Unspecified atrial fibrillation (principal); E27.1 Primary adrenocortical insufficiency; E11.43 Type 2 diabetes mellitus with diabetic autonomic (poly)neuropathy; M32.9 Systemic lupus erythematosus, unspecified; K31.84 Gastroparesis; I65.29 Occlusion and stenosis of unspecified carotid artery; E78.5 Hyperlipidemia, unspecified; J44.9 Chronic obstructive pulmonary disease, unspecified; E03.9 Hypothyroidism, unspecified; K21.9 Gastro-esophageal reflux disease without esophagitis; D72.829 Elevated white blood cell count, unspecified; I10 Essential (primary) hypertension; R07.89 Other chest pain; M06.9 Rheumatoid arthritis, unspecified; G89.4 Chronic pain syndrome; M19.90 Unspecified osteoarthritis, unspecified site; M79.7 Fibromyalgia; Z79.82 Long term (current) use of aspirin; Z87.74 Personal history of (corrected) congenital malformations of heart and circulatory system; Z82.49 Family history of ischemic heart disease and other diseases of the circulatory system; Z79.84 Long term (current) use of oral hypoglycemic drugs; Z86.73 Personal history of transient ischemic attack (TIA), and cerebral infarction without residual deficits
CPT/HCPCS: 71045; 80048; 80053; 82550; 82552; 82948; 83690; 83735; 83880; 84443; 84484; 85025; 85610; 85730; 93005; 96374; 96375; J1815; J7040

== ENCOUNTER → 2017-12-25 | Outpatient (CLI) | payer MEDICARE, BC ==
[~2017-12-25] MED LIST changes: +ALBU1AER5 INH; +ASPI-516 CHEW; +AZEL0.055 EACH NARE; +BETH25TA2 PO; +BIOT1CHW PO; +BIOT50006 PO; +CARD120C4 PO; +CELE1CAP8 PO; +CINN500C2 PO; -CINN500T PO; +DEXA4VIA IM; +DIAZ5TAB PO; -DIMISTA EACH NARE; +DIPH25TA2 PO; +DOCU1CAP66 PO; +DULO1CAP3 PO; +ESTR42.5V VAGINAL; +ESZO2 PO; -ESZO3TAB4 PO; +FLEC100T PO; -FLEC1TAB8 PO; -FOLI1TAB4 PO; +FOLI800T PO; -GABA300C5 PO; +GABA400C5 PO; +HYDR20TA PO; +KLOR10TA PO; +LEVO-86 PO; -LEVO.125 PO; +LINA290C PO; +MECL-62 PO; -MULT1TAB99 PO; -NALO1TAB2 PO; +NITR0.4S SL; +NYST1000 SWISH-SWAL; -NYST500000 PO; -POTA10TA8 PO; +RANI150T PO; +RISE1TAB13 PO; +TURM500C7 PO; +ZINC50TA2 PO; +formula 303 PO; +midrin PO
[2017-12-25 09:57] LABS: BILIRUBIN, URINE NEG (NEG); BLOOD, URINE NEG (NEG); GLUCOSE,URINE 1000 mg/dL (NEG); KETONE, URINE NEG (NEG); NITRITE,URINE NEG (NEG); SQUAMOUS EPITHELIAL CELL URINE <1 /hpf (0-5); TRANSITIONAL EPI CELLS, URINE <1 /hpf; URINE COLOR YELLOW (YELLW/STRAW); URINE LEUKOCYTE ESTERASE NEG (NEG)
[2017-12-25 09:59] LABS: AUTOMATED NEUTROPHIL # 5.8 TH/MM3 (1.8-7.7); BASOPHIL # 0.1 TH/MM3 (0-0.2); BASOPHIL % 0.7 % (0.0-2.0); EOSINOPHIL # 0.1 TH/MM3 (0-0.4); EOSINOPHIL % 1.2 % (0.0-4.0); HEMOGLOBIN 12.8 GM/DL (11.6-15.3); LYMPH % 30.2 % (9.0-44.0); MEAN CELL VOLUME 77.1 FL (80.0-100.0); MEAN CORPUSCULAR HEMOGLOBIN 24.7 PG (27.0-34.0); MEAN CORPUSCULAR HGB CONC 32.1 % (32.0-36.0); MEAN PLATELET VOLUME 8.3 FL (7.0-11.0); MONO % 9.4 % (0.0-8.0); MONOCYTE # 0.9 TH/MM3 (0-0.9); NEUT % 58.5 % (16.0-70.0); PLATELET COUNT 310 TH/MM3 (150-450); RED BLOOD COUNT 5.19 MIL/MM3 (4.00-5.30)
[2017-12-25 10:11] LABS: ALBUMIN 3.5 GM/DL (3.4-5.0); AST (GOT) 26 U/L (15-37); BICARBONATE 30.6 MEQ/L (21.0-32.0); BLOOD UREA NITROGEN 26 MG/DL (7-18); CALCIUM 9.1 MG/DL (8.5-10.1); CHLORIDE 102 MEQ/L (98-107); CREATININE 0.86 MG/DL (0.50-1.00); GLOMERULAR FILTRATION RATE 65 ML/MIN (>89); GLUCOSE,FASTING 153 MG/DL (74-99); SODIUM (NA) 139 MEQ/L (136-145)
[2017-12-25 10:12] LABS: ALT (GPT) 24 U/L (10-53)
[2017-12-25 10:13] LABS: CHOLESTEROL 196 MG/DL (120-200); TRIGLYCERIDES 107 MG/DL (42-150)
[2017-12-25 10:22] LABS: ALKALINE PHOSPHATASE 91 U/L (45-117); C-REACTIVE PROTEIN LESS THAN 0.29 MG/DL (0.00-0.30); CHOLESTEROL/ HDL RATIO 2.36 RATIO; FREE T3 2.94 PG/ML (2.18-3.98); FREE T4 0.96 NG/DL (0.76-1.46); HDL CHOLESTEROL 82.9 MG/DL (40.0-60.0); LDL CHOLESTEROL 92 MG/DL (0-99); TOTAL BILIRUBIN ADULT 0.4 MG/DL (0.2-1.0); TOTAL PROTEIN 6.8 GM/DL (6.4-8.2)
[2017-12-25 17:00] LABS: HEMOGLOBIN A1C 7.7 % (4.3-6.0)
[2017-12-26 14:37] LABS: ANA SCREEN POS (NEG)
[2017-12-28 15:36] LABS: ANA PATTERN DIFFUSE
== END ==
LOC: PLAB 07:40
PROVIDERS: ATTEND Family Medicine
DX: M06.4 Inflammatory polyarthropathy (principal); R25.2 Cramp and spasm; E11.65 Type 2 diabetes mellitus with hyperglycemia; E03.9 Hypothyroidism, unspecified; E55.9 Vitamin D deficiency, unspecified; R31.1 Benign essential microscopic hematuria; Z79.899 Other long term (current) drug therapy
CPT/HCPCS: 36415; 80053; 80061; 81001; 82043; 82306; 83036; 84439; 84443; 84481; 84550; 85025; 86038; 86039; 86140; 86225

== ENCOUNTER 2018-04-25 12:14 | Inpatient (IN) | payer MEDICARE, BC ==
[~2018-04-25] VITALS: Ht 160 cm; Wt 73.8 kg
[~2018-04-25 12:14] MED LIST changes: +LEVEMIR SQ
[2018-04-25 12:36] VITALS: BP 150/68; PULSE 83; RESP 16; TEMP 98.2; O2SAT 96
[2018-04-25 13:03] LABS: BILIRUBIN, URINE NEG (NEG); BLOOD, URINE SMALL (NEG); GLUCOSE,URINE 1000 OR GREATER mg/dL (NEG); KETONE, URINE NEG (NEG); NITRITE,URINE POS (NEG); PH, URINE 5.5 (5.0-8.5); URINE COLOR YELLOW (YELLW/STRAW); URINE LEUKOCYTE ESTERASE SMALL (NEG)
[2018-04-25 13:10] LABS: BACTERIA, URINE MANY /hpf; RBC, URINE 0-3 /hpf (0-3); WBC, URINE INNUM /hpf (0-5); WHITE BLOOD CELL CLUMPS FEW
[2018-04-25] MEDS ORDERED: INSU1INJ5 SQ (13:42)
[2018-04-25] MEDS ORDERED: FLEC100T PO (13:42)
[2018-04-25] MEDS ORDERED: GLIP5TAB8 PO (13:42)
[2018-04-25] MEDS ORDERED: VITA500012 PO (13:42)
[2018-04-25] MEDS ORDERED: SODIUM CHLOR 0.9% 1000 ML INJ 1,000 ML IV SCH (13:53)
[2018-04-25] MEDS ORDERED: CEFEPIME INJ 2,000 MG in SODIUM CHLORIDE 0.9% INJ 100 ML IV STA (13:53)
[2018-04-25] MEDS ORDERED: SODIUM CHLORIDE 0.9% FLUSH 10 ML FLUSH IV FLUSH PRN ×2 (14:00→15:30)
--- NOTE | 2018-04-25 14:14 | PD ---
HPI Chief Complaint: Altered Mental Status Time Seen by Provider: 13:53 Travel History International Travel<30 days: No Contact w/Intl Traveler<30days: No Traveled to known affect area: No History of Present Illness HPI 73-year-old female patient with history of lupus, diabetes, previous CVA, atrial fibrillation, seizures, here because she has had several weeks history of decline in mental status, more confusion, forgetfulness, disorientation according to the family, had been evaluated in [place] and diagnosed with UTI, has had 2 CT scans in the last 2 weeks, last one was a week ago which were unremarkable. Patient apparently had fallen 2 weeks ago because of this. However, family states that she has not had any recent falls. They had just gotten back from [place] yesterday, and was seen in the office by Dr. Gu today, diagnosed with UTI, sent in for further evaluation. She complains of some dysuria but denies any significant abdominal pains, vomiting, fevers, or other symptoms. She has been on Macrobid for several days. Modifying Factors: None Associated Signs & Symptoms: increased disorientation, urinary symptoms Risk Factors: Elderly, diabetes, lupus, CVA, seizures PFSH Past Medical History Hx Anticoagulant Therapy: Yes Arthritis: Yes Asthma: Yes (hx attacks r/t allergy attacks) Autoimmune Disease: Yes (FIBROMYALGIA, SYSTEMIC CANDIDIASIS, LUPUS) Blood Disorders: No Heart Rhythm Problems: No Cancer: No Cardiac Catheterization: Yes (07/31/2007) Cardiovascular Problems: Yes (HTN, A-fib ) High Cholesterol: Yes (stopped meds due to adrenal 08/2014) Chest Pain: Yes Congestive Heart Failure: No Cerebrovascular Accident: Yes (stroke) Diabetes: Yes Patient Takes Glucophage: No Diminished Hearing: No Endocrine: Yes Fibromyalgia: Yes Gastrointestinal Disorders: Yes GERD: Yes Genitourinary: Yes (MULTIPLE CYSTS IN URETHRA, MD HAD TO POP) Hepatitis: No Hiatal Hernia: Yes Hypertension: Yes Immune Disorder: Yes (ADDISONS DIEASE) Implanted Vascular Access Dvce: Yes Medical other: Yes (MULTIPLE ALLERGIES, LUPUS, FIBROMYALGIA, RA, SEIZURES, REFLUX, STROKE) Musculoskeletal: Yes Neurologic: Yes Psychiatric: No Reproductive: No Respiratory: Yes (BRONCHITIS, PNEUMONIA) Migraines: Yes Myocardial Infarction: No Seizures: Yes Thyroid Disease: Yes (NODULES) PNEUMOCCOCAL Vaccine (Year): LAST REC'D 1999 ?: Not Menopausal: Yes Dilation and Curettage (D&C): Yes Tubal Ligation: Yes Past Surgical History Appendectomy: Yes (1960) Body Medical Devices: SCREWS/RODS IN BACK (2 broken) Cardiac Surgery: Yes (past) Cholecystectomy: Yes (05/13/2004) Coronary Artery Bypass Graft: No Eye Surgery: Yes (BILATERAL CATARACT SURGERY) Joint Replacement: Yes Pacemaker: No Other Surgery: Yes (LEFT KNEE SX) Family History Family Myocardial Infarction: Yes Social History Alcohol Use: Yes (occassional) Tobacco Use: No Substance Use: No Allergies-Medications (Allergen,Severity, Reaction): Coded Allergies: Sulfa (Sulfonamide Antibiotics) (Verified Allergy, Severe, N/V, 04/25/18) acetaminophen (Verified Allergy, Severe, red rash and hives, 04/25/18) amitriptyline (Verified Allergy, Severe, red,rash and hives, 04/25/18) baclofen (Verified Allergy, Severe, itch,rash and hives, 04/25/18) carisoprodol (Verified Allergy, Severe, red,rash,hives, 04/25/18) cyclobenzaprine (Verified Allergy, Severe, Hives, 04/25/18) diatrizoate meglumine (Verified Allergy, Severe, HIVES, ITCH, 04/25/18) doxycycline (Verified Allergy, Severe, red,rash,hives, 04/25/18) esomeprazole (Verified Allergy, Severe, HIVES, 04/25/18) gadobenic acid (Verified Allergy, Severe, HIVES, ITCH, 04/25/18) gadodiamide (Verified Allergy, Severe, HIVES, ITCH, 04/25/18) gadoteridol (Verified Allergy, Severe, HIVES, ITCH, 04/25/18) hydrocodone (Verified Allergy, Severe, red rash and hives, 04/25/18) hydromorphone (Verified Allergy, Severe, Hives, 04/25/18) hydroxychloroquine (Verified Allergy, Severe, Rash, 04/25/18) iodine (Verified Allergy, Severe, HIVES, ITCH, 04/25/18) iodixanol (Verified Allergy, Severe, HIVES, ITCH, 04/25/18) iohexol (Verified Allergy, Severe, HIVES, ITCH, 04/25/18) levofloxacin (Verified Allergy, Severe, Seizures, 04/25/18) metaxalone (Verified Allergy, Severe, Hives, 04/25/18) metformin (Verified Allergy, Severe, HIVES, 04/25/18) methocarbamol (Verified Allergy, Severe, RASH,HIVES, 04/25/18) morphine (Verified Allergy, Severe, Hives, 04/25/18) oxycodone (Verified Allergy, Severe, red rash and hives, 04/25/18) penicillin G (Verified Allergy, Severe, red rash and hives, 04/25/18) potassium iodide (Verified Allergy, Severe, HIVES, ITCH, 04/25/18) povidone-iodine (Verified Allergy, Severe, HIVES, ITCH, 04/25/18) pregabalin (Verified Allergy, Severe, Numbness, 04/25/18) sodium iodide (Verified Allergy, Severe, HIVES, ITCH, 04/25/18) sodium iodide (Verified Allergy, Severe, HIVES, ITCH, 04/25/18) sulfamethoxazole (Verified Allergy, Severe, N/V, 04/25/18) topiramate (Verified Allergy, Severe, red rash and hives, 04/25/18) trimethoprim (Verified Allergy, Severe, N/V, 04/25/18) lovastatin (Verified Adverse Reaction, Severe, ALOVASTATIN + NIACIN = ADVICOR (SIDE EFFECT FLUSHING), 04/25/18) niacin (Verified Adverse Reaction, Severe, NIACIN + LOVASTATIN = ADVICOR ( SIDE EFFECT FLUSHING), 04/25/18) Uncoded Allergies: ONGLYZA (Allergy, Mild, FEET SWELLING, 09/26/13) TRAJENTA (Allergy, Mild, FEET SWELLING, 09/26/13) GLUCAVANCE (Allergy, Unknown, UNKNOWN, 03/01/14) MOST ANTIBIOTICS (Allergy, Unknown, UNKNOWN, 03/01/14) BYDUREON (Adverse Reaction, Unknown, SWELLING, 03/01/14) Reported Meds & Prescriptions Reported Meds & Active Scripts Active Cardizem CD 24 HR (Diltiazem CD 24 HR) 120 Mg Caper 120 Mg PO DAILY Reported Levemir Flextouch Pen Inj (Insulin Detemir) 300 unit/3 ML Pen 16 Units SQ NIGHTLY Glipizide 5 Mg Tab 5 Mg PO DAILY Take 30 minutes before a meal Flecainide (Flecainide Acetate) 100 Mg Tab 100 Mg PO BID Ergocalciferol 50,000 Unit Cap 20,000 Units PO Q30D Levemir Inj (Insulin Detemir) 1,000 unit/ 10 ML Vial 12 Units SQ HS Do not mix with any other Insulin. Synthroid (Levothyroxine Sodium) 137 Mcg Tab 150 Mcg PO DAILY Stool Softener (Docusate Sodium) 100 Mg Cap 1 Tab PO TID Risedronate 150 Mg Tab 150 Mg PO Q30D Ranitidine (Ranitidine HCl) 150 Mg Tab 150 Mg PO DAILY Nystatin Liq 100,000 unit/ml Susp 5 Ml SWISH-SWAL QID Nitrostat SL (Nitroglycerin) 0.4 Mg Subl 0.4 Mg SL DIRECTED PRN 1 tablet under the tongue as needed for chest pain. Repeat every 5 minutes for a total of 3 DOSES or call 911 if NO relief. Lunesta (Eszopiclone) 2 Mg Tab 3 Mg PO HS PRN Klor-Con 10 (Potassium Chloride) 10 Meq Tab 10 Meq PO ONCE Folic Acid 0.8 Mg Tab 1 Mg PO DAILY Estrace Vaginal (Estradiol) 0.01% Cream 1 Appl VAGINAL HS Duloxetine DR (Duloxetine HCl) 60 Mg Capdr 60 Mg PO DAILY Diazepam 5 Mg Tab 5 Mg PO BID PRN Dexamethasone Sodium Phosphate Inj (Dexamethasone Sod Phosphate Inj) 4 Mg/Ml Vial 4 Mg IM ONCE Eql Cinnamon (Cinnamon) 500 Mg Cap 1,000 Mg PO BID Diphenhydramine (Diphenhydramine HCl) 25 Mg Tab 50 Mg PO Q6H PRN Levocetirizine 5 Mg Tab 5 Mg PO DAILY Cortef (Hydrocortisone) 5 Mg Tab 5 Mg PO DIRECTED 12Noon & 5pm take with food to decrease GI upset. Farxiga (Dapagliflozin) 10 Mg Tab 10 Mg PO DAILY Singulair (Montelukast Sodium) 10 Mg Tab 10 Mg PO DAILY Pradaxa (Dabigatran) 150 Mg Cap 150 Mg PO BID Protonix (Pantoprazole Sodium) 40 Mg Tab 40 Mg PO DAILY Myrbetriq (Mirabegron) 50 Mg Tab 25 Mg PO DAILY Hydroxyzine HCl 50 Mg Tab 25 Mg PO TID PRN Hydrocodone-Acetaminophen 5-300 Mg Tab 1 Tab PO Q6H PRN Furosemide 20 Mg Tab 20 Mg PO DAILY Clotrimazole Stephon (Clotrimazole) 10 Mg Troc 10 Mg PO QID PRN Review of Systems ROS Limitations: Altered Mental Status (It is unclear whether she is a reliable historian.) Physical Exam Narrative GENERAL: Well-developed elderly white female patient currently in moderate distress. Awake, alert, disoriented. SKIN: Focused skin assessment warm/dry. HEAD: Atraumatic. Normocephalic. EYES: Pupils equal and round. No scleral icterus. No injection or drainage. ENT: No nasal bleeding or discharge. Mucous membranes pink and moist. NECK: Trachea midline. No JVD. Supple. CARDIOVASCULAR: Regular rate and rhythm. No murmur appreciated. RESPIRATORY: No accessory muscle use. Clear to auscultation. Breath sounds equal bilaterally. GASTROINTESTINAL: Abdomen soft, mild suprapubic tenderness without guarding or rebound, nondistended. Hepatic and splenic margins not palpable. MUSCULOSKELETAL: No obvious deformities. No clubbing. No cyanosis. No edema. NEUROLOGICAL: Awake and alert. No obvious cranial nerve deficits. Motor grossly within normal limits. Normal speech. PSYCHIATRIC: Appropriate mood and affect; insight and judgment poor. Data Data Last Documented VS Vital Signs Date Time Temp Pulse Resp B/P (MAP) Pulse Ox O2 Delivery O2 Flow Rate FiO2 04/25/18 14:58 84 20 141/69 (93) 96 04/25/18 14:28 Room Air 04/25/18 12:36 98.2 Orders Orders Urinalysis - C+S If Indicated (04/25/18 12:49) Urine Culture (04/25/18 12:55) Electrocardiogram (04/25/18 13:53) Ammonia (04/25/18 13:53) Complete Blood Count With Diff (04/25/18 13:53) Comprehensive Metabolic Panel (04/25/18 13:53) Troponin I (04/25/18 13:53) Thyroid Stimulating Hormone (04/25/18 13:53) Lactic Acid Sepsis Protocol (04/25/18 13:53) Blood Culture (04/25/18 13:53) Chest, Single Ap (04/25/18 13:53) Blood Glucose (04/25/18 13:53) Ecg Monitoring (04/25/18 13:53) Iv Access Insert/Monitor (04/25/18 13:53) Oximetry (04/25/18 13:53) Sodium Chloride 0.9% Flush (Ns Flush) (04/25/18 14:00) Sodium Chlor 0.9% 1000 Ml Inj (Ns 1000 M (04/25/18 13:53) Cefepime Inj (Maxipime Inj) (04/25/18 13:53) Labs Laboratory Tests Test 04/25/18 12:55 04/25/18 14:02 Urine Color YELLOW Urine Turbidity CLOUDY Urine pH 5.5 Urine Specific [place] 1.025 Urine Protein NEG mg/dL Urine Glucose (UA) 1000 OR GREATER mg/dL Urine Ketones NEG mg/dL Urine Occult Blood SMALL Urine Nitrite POS Urine Bilirubin NEG Urine Urobilinogen 0.2 MG/DL Urine Leukocyte Esterase SMALL Urine RBC 0-3 /hpf Urine WBC INNUM /hpf Urine WBC Clumps FEW Urine Bacteria MANY /hpf Microscopic Urinalysis Comment CULTURE INDICATED White Blood Count 11.3 TH/MM3 Red Blood Count 5.46 MIL/MM3 Hemoglobin 13.2 GM/DL Hematocrit 41.7 % Mean Corpuscular Volume 76.4 FL Mean Corpuscular Hemoglobin 24.3 PG Mean Corpuscular Hemoglobin Concent 31.8 % Red Cell Distribution Width 18.4 % Platelet Count 299 TH/MM3 Mean Platelet Volume 7.4 FL Neutrophils (%) (Auto) 73.0 % Lymphocytes (%) (Auto) 20.6 % Monocytes (%) (Auto) 5.0 % Eosinophils (%) (Auto) 0.9 % Basophils (%) (Auto) 0.5 % Neutrophils # (Auto) 8.2 TH/MM3 Lymphocytes # (Auto) 2.3 TH/MM3 Monocytes # (Auto) 0.6 TH/MM3 Eosinophils # (Auto) 0.1 TH/MM3 Basophils # (Auto) 0.1 TH/MM3 CBC Comment AUTO DIFF Differential Comment AUTO DIFF CONFIRMED Platelet Estimate NORMAL Platelet Morphology Comment NORMAL Blood Urea Nitrogen 12 MG/DL Creatinine 0.76 MG/DL Random Glucose 111 MG/DL Total Protein 6.8 GM/DL Albumin 3.1 GM/DL Calcium Level 8.9 MG/DL Alkaline Phosphatase 236 U/L Aspartate Amino Transf (AST/SGOT) 28 U/L Alanine Aminotransferase (ALT/SGPT) 26 U/L Total Bilirubin 0.5 MG/DL Sodium Level 141 MEQ/L Potassium Level 3.9 MEQ/L Chloride Level 105 MEQ/L Carbon Dioxide Level 29.2 MEQ/L Anion Gap 7 MEQ/L Estimat Glomerular Filtration Rate 75 ML/MIN Lactic Acid Level 1.0 mmol/L Ammonia 17 MCMOL/L Troponin I LESS THAN 0.02 NG/ML Thyroid Stimulating Hormone 3rd Gen 1.410 uIU/ML MDM Medical Decision Making Medical Screen Exam Complete: Yes Emergency Medical Condition: Yes Medical Record Reviewed: Yes Interpretation(s) EKG shows NSR, no ST elevation or depression, and no arrhythmias. No significant T-wave inversions. Laboratory Tests Test 04/25/18 12:55 04/25/18 14:02 Urine Turbidity CLOUDY (CLEAR) Urine Glucose (UA) 1000 OR GREATER mg/dL Urine Occult Blood SMALL (NEG) Urine Nitrite POS (NEG) Urine Leukocyte Esterase SMALL (NEG) Urine WBC INNUM /hpf (0-5) Urine WBC Clumps FEW (NONE) Urine Bacteria MANY /hpf (NONE) White Blood Count 11.3 TH/MM3 (4.0-11.0) Red Blood Count 5.46 MIL/MM3 (4.00-5.30) Mean Corpuscular Volume 76.4 FL (80.0-100.0) Mean Corpuscular Hemoglobin 24.3 PG (27.0-34.0) Mean Corpuscular Hemoglobin Concent 31.8 % (32.0-36.0) Red Cell Distribution Width 18.4 % (11.6-17.2) Neutrophils (%) (Auto) 73.0 % (16.0-70.0) Neutrophils # (Auto) 8.2 TH/MM3 (1.8-7.7) Random Glucose 111 MG/DL (74-106) Albumin 3.1 GM/DL (3.4-5.0) Alkaline Phosphatase 236 U/L (45-117) Estimat Glomerular Filtration Rate 75 ML/MIN (>89) Troponin I LESS THAN 0.02 NG/ML Last 24 hours Impressions Chest X-Ray 04/25/18 4023 Signed Impressions: CONCLUSION: 1. Minimal discoid atelectasis in the right lower lung zone. Differential Diagnosis Altered mental status, UTI: Sepsis versus dehydration versus electrolyte abnormalities versus dementia Narrative Course Patient has had a CAT scan recently, last one was a week ago which was unremarkable for acute processes or injuries. She has not had any recent falls according to the family. Her lab work does show significant UTI. The rest of the lab work was fairly unremarkable. LFTs are within normal limits and ammonia is normal. At this point, IV antibiotics were initiated in the ER after cultures were drawn. Plan would be to admit the patient for outpatient therapy failure. Case was discussed with Dr. Lam for admission. Diagnosis Primary Impression: UTI (urinary tract infection) Additional Impression: Altered mental status Admitting Information Admitting Physician Requests: Admit Mariana Montenegro MD Apr 25, 2018 14:14
[2018-04-25 14:18] LABS: AUTOMATED NEUTROPHIL # 8.2 TH/MM3 (1.8-7.7); BASOPHIL # 0.1 TH/MM3 (0-0.2); BASOPHIL % 0.5 % (0.0-2.0); EOSINOPHIL # 0.1 TH/MM3 (0-0.4); EOSINOPHIL % 0.9 % (0.0-4.0); HEMATOCRIT 41.7 % (35.0-46.0); HEMOGLOBIN 13.2 GM/DL (11.6-15.3); LYMPH % 20.6 % (9.0-44.0); LYMPHOCYTE # 2.3 TH/MM3 (1.0-4.8); MEAN CELL VOLUME 76.4 FL (80.0-100.0); MEAN CORPUSCULAR HEMOGLOBIN 24.3 PG (27.0-34.0); MEAN CORPUSCULAR HGB CONC 31.8 % (32.0-36.0); MEAN PLATELET VOLUME 7.4 FL (7.0-11.0); MONOCYTE # 0.6 TH/MM3 (0-0.9); PLATELET COUNT 299 TH/MM3 (150-450); RED BLOOD COUNT 5.46 MIL/MM3 (4.00-5.30); RED CELL DISTRIBUTION WIDTH 18.4 % (11.6-17.2); WHITE BLOOD COUNT 11.3 TH/MM3 (4.0-11.0)
[2018-04-25 14:28] VITALS: O2SAT 95
--- NOTE | 2018-04-25 14:32 | RADRPT ---
EXAM DATE: 04/25/2018 2:24 PM EDT AGE/SEX: 73 years / Female INDICATIONS: Short of breath. CLINICAL DATA: This is the patient's initial encounter. Patient reports that signs and symptoms have been present for 1 day and indicates a pain score of 0/10. MEDICAL/SURGICAL HISTORY: None. None. COMPARISON: [facility] – [place], 11/13/2017. . FINDINGS: Discoid linear opacity in the right lower lung zone. Otherwise, no focal pleural or parenchymal opaci ties. Cardiomegaly mediastinal contours are within normal limits. Bony thorax is intact. Partially im aged fixation hardware in the lumbar spine. CONCLUSION: 1. Minimal discoid atelectasis in the right lower lung zone. Electronically signed by: Anuj Rios MD 04/25/2018 2:31 PM EDT
[2018-04-25 14:35] LABS: CHLORIDE 105 MEQ/L (98-107); SODIUM (NA) 141 MEQ/L (136-145)
[2018-04-25 14:39] LABS: CALCIUM 8.9 MG/DL (8.5-10.1)
[2018-04-25 14:40] LABS: ALBUMIN 3.1 GM/DL (3.4-5.0); BICARBONATE 29.2 MEQ/L (21.0-32.0); BLOOD UREA NITROGEN 12 MG/DL (7-18); GLUCOSE,RANDOM 111 MG/DL (74-106)
[2018-04-25 14:43] LABS: ALT (GPT) 26 U/L (10-53); AST (GOT) 28 U/L (15-37); CREATININE 0.76 MG/DL (0.50-1.00); GLOMERULAR FILTRATION RATE 75 ML/MIN (>89)
[2018-04-25 14:44] LABS: TOTAL BILIRUBIN ADULT 0.5 MG/DL (0.2-1.0); TOTAL PROTEIN 6.8 GM/DL (6.4-8.2)
[2018-04-25 14:46] LABS: ALKALINE PHOSPHATASE 236 U/L (45-117)
[2018-04-25 14:48] LABS: TROPONIN I LESS THAN 0.02 NG/ML (0.02-0.05)
[2018-04-25 14:58] VITALS: BP 141/69; PULSE 84; RESP 20; O2SAT 96
[2018-04-25] MEDS ORDERED: MAGNESIUM HYDROXIDE SUSP 30 ML CUP PO PRN (15:30)
[2018-04-25] MEDS ORDERED: LACTULOSE SYRUP 20 GM/30 ML CUP PO PRN (15:30)
[2018-04-25] MEDS ORDERED: ACETAMINOPHEN 325 MG TAB PO PRN (15:30)
[2018-04-25] MEDS ORDERED: NALOXONE HCL 0.4 MG/ML AMP IV PUSH PRN (15:30)
[2018-04-25] MEDS ORDERED: SENNOSIDES 8.6 MG TAB PO PRN (15:30)
[2018-04-25] MEDS ORDERED: BISACODYL 10 MG SUPP RECTAL PRN (15:30)
--- NOTE | 2018-04-25 15:38 | HHI.HP ---
[facility] Kaylan Gu MD Admission Diagnosis UTI/failed outpatient therapy/altered mental status Diagnoses: Chief Complaint: Altered mental status, UTI. Travel History International Travel<30 Days: No Contact w/Intl Traveler <30 Da: No Traveled to Known Affected Are: No History of Present Illness Ms. Adkins is a 73 year old female with a history of lupus, diabetes, previous CVA , atrial fibrillation, seizures who presents to the ED due to progressive decline in mental status, confusion, forgetfulness and disorientation. Ms. Adkins went on a 45 day tour recently. She went to [place] first then [place] where she fell and hit her head. Per daughters, her CT head was unremarkable and subsequently she went back to [place] at her daughter's house. While in [place], she showed some evidence of confusion. She had dysuria and mild hematuria as well. She was seen by [facility] and perhaps subsequently by physician, history is not clear. However, she was given Rx for Macrobid. Her confusion, disorientation did not improve. Patient's daughters decided to fly her to [place] where the patient normally resides. She was taken to her PCP today regarding concern over patient's acute confusion, forgetfulness. PCP recommended an evaluation in the ED. At the time of this interview, patient seems pleasant, coherent. She does report dysuria and some mild hematuria. Review of Systems Except as stated in HPI: all other systems reviewed are Neg Past Family Social History Past Medical History Lupus, HTN, Afib, Stroke, Fibromyalgia, York's disease, Bronchitis. Past Surgical History Appendectomy, Bilateral cataract surgery, Left knee surgery, Cholecystectomy. Reported Medications Cardizem CD 24 HR (Diltiazem CD 24 HR) 120 Mg Caper 120 Mg PO DAILY Reported Levemir Flextouch Pen Inj (Insulin Detemir) 300 unit/3 ML Pen 16 Units SQ NIGHTLY Glipizide 5 Mg Tab 5 Mg PO DAILY Take 30 minutes before a meal Flecainide (Flecainide Acetate) 100 Mg Tab 100 Mg PO BID Ergocalciferol 50,000 Unit Cap 20,000 Units PO Q30D Levemir Inj (Insulin Detemir) 1,000 unit/ 10 ML Vial 12 Units SQ HS Do not mix with any other Insulin. Synthroid (Levothyroxine Sodium) 137 Mcg Tab 150 Mcg PO DAILY Stool Softener (Docusate Sodium) 100 Mg Cap 1 Tab PO TID Risedronate 150 Mg Tab 150 Mg PO Q30D Ranitidine (Ranitidine HCl) 150 Mg Tab 150 Mg PO DAILY Nystatin Liq 100,000 unit/ml Susp 5 Ml SWISH-SWAL QID Nitrostat SL (Nitroglycerin) 0.4 Mg Subl 0.4 Mg SL DIRECTED PRN 1 tablet under the tongue as needed for chest pain. Repeat every 5 minutes for a total of 3 DOSES or call 911 if NO relief. Lunesta (Eszopiclone) 2 Mg Tab 3 Mg PO HS PRN Klor-Con 10 (Potassium Chloride) 10 Meq Tab 10 Meq PO ONCE Folic Acid 0.8 Mg Tab 1 Mg PO DAILY Estrace Vaginal (Estradiol) 0.01% Cream 1 Appl VAGINAL HS Duloxetine DR (Duloxetine HCl) 60 Mg Capdr 60 Mg PO DAILY Diazepam 5 Mg Tab 5 Mg PO BID PRN Dexamethasone Sodium Phosphate Inj (Dexamethasone Sod Phosphate Inj) 4 Mg/Ml Vial 4 Mg IM ONCE Eql Cinnamon (Cinnamon) 500 Mg Cap 1,000 Mg PO BID Diphenhydramine (Diphenhydramine HCl) 25 Mg Tab 50 Mg PO Q6H PRN Levocetirizine 5 Mg Tab 5 Mg PO DAILY Cortef (Hydrocortisone) 5 Mg Tab 5 Mg PO DIRECTED 12Noon & 5pm take with food to decrease GI upset. Farxiga (Dapagliflozin) 10 Mg Tab 10 Mg PO DAILY Singulair (Montelukast Sodium) 10 Mg Tab 10 Mg PO DAILY Pradaxa (Dabigatran) 150 Mg Cap 150 Mg PO BID Protonix (Pantoprazole Sodium) 40 Mg Tab 40 Mg PO DAILY Myrbetriq (Mirabegron) 50 Mg Tab 25 Mg PO DAILY Hydroxyzine HCl 50 Mg Tab 25 Mg PO TID PRN Hydrocodone-Acetaminophen 5-300 Mg Tab 1 Tab PO Q6H PRN Furosemide 20 Mg Tab 20 Mg PO DAILY Clotrimazole Stephon (Clotrimazole) 10 Mg Troc 10 Mg PO QID PRN Allergies: Coded Allergies: Sulfa (Sulfonamide Antibiotics) (Verified Allergy, Severe, N/V, 04/25/18) acetaminophen (Verified Allergy, Severe, red rash and hives, 04/25/18) amitriptyline (Verified Allergy, Severe, red,rash and hives, 04/25/18) baclofen (Verified Allergy, Severe, itch,rash and hives, 04/25/18) carisoprodol (Verified Allergy, Severe, red,rash,hives, 04/25/18) cyclobenzaprine (Verified Allergy, Severe, Hives, 04/25/18) diatrizoate meglumine (Verified Allergy, Severe, HIVES, ITCH, 04/25/18) doxycycline (Verified Allergy, Severe, red,rash,hives, 04/25/18) esomeprazole (Verified Allergy, Severe, HIVES, 04/25/18) gadobenic acid (Verified Allergy, Severe, HIVES, ITCH, 04/25/18) gadodiamide (Verified Allergy, Severe, HIVES, ITCH, 04/25/18) gadoteridol (Verified Allergy, Severe, HIVES, ITCH, 04/25/18) hydrocodone (Verified Allergy, Severe, red rash and hives, 04/25/18) hydromorphone (Verified Allergy, Severe, Hives, 04/25/18) hydroxychloroquine (Verified Allergy, Severe, Rash, 04/25/18) iodine (Verified Allergy, Severe, HIVES, ITCH, 04/25/18) iodixanol (Verified Allergy, Severe, HIVES, ITCH, 04/25/18) iohexol (Verified Allergy, Severe, HIVES, ITCH, 04/25/18) levofloxacin (Verified Allergy, Severe, Seizures, 04/25/18) metaxalone (Verified Allergy, Severe, Hives, 04/25/18) metformin (Verified Allergy, Severe, HIVES, 04/25/18) methocarbamol (Verified Allergy, Severe, RASH,HIVES, 04/25/18) morphine (Verified Allergy, Severe, Hives, 04/25/18) oxycodone (Verified Allergy, Severe, red rash and hives, 04/25/18) penicillin G (Verified Allergy, Severe, red rash and hives, 04/25/18) potassium iodide (Verified Allergy, Severe, HIVES, ITCH, 04/25/18) povidone-iodine (Verified Allergy, Severe, HIVES, ITCH, 04/25/18) pregabalin (Verified Allergy, Severe, Numbness, 04/25/18) sodium iodide (Verified Allergy, Severe, HIVES, ITCH, 04/25/18) sodium iodide (Verified Allergy, Severe, HIVES, ITCH, 04/25/18) sulfamethoxazole (Verified Allergy, Severe, N/V, 04/25/18) topiramate (Verified Allergy, Severe, red rash and hives, 04/25/18) trimethoprim (Verified Allergy, Severe, N/V, 04/25/18) lovastatin (Verified Adverse Reaction, Severe, ALOVASTATIN + NIACIN = ADVICOR (SIDE EFFECT FLUSHING), 04/25/18) niacin (Verified Adverse Reaction, Severe, NIACIN + LOVASTATIN = ADVICOR ( SIDE EFFECT FLUSHING), 04/25/18) Uncoded Allergies: ONGLYZA (Allergy, Mild, FEET SWELLING, 09/26/13) TRAJENTA (Allergy, Mild, FEET SWELLING, 09/26/13) GLUCAVANCE (Allergy, Unknown, UNKNOWN, 03/01/14) MOST ANTIBIOTICS (Allergy, Unknown, UNKNOWN, 03/01/14) BYDUREON (Adverse Reaction, Unknown, SWELLING, 03/01/14) Family History No family history of Parkinson's or Alzheimer's. Social History Alcohol Use: Yes (occassional) Tobacco Use: No Substance Use: No Physical Exam Vital Signs Vital Signs Date Time Temp Pulse Resp B/P (MAP) Pulse Ox O2 Delivery O2 Flow Rate FiO2 04/25/18 14:58 84 20 141/69 (93) 96 04/25/18 14:28 82 16 95 Room Air 04/25/18 14:28 95 04/25/18 12:36 98.2 83 16 150/68 (95) 96 Physical Exam GENERAL: This is a well-nourished, well-developed patient, in no apparent distress. Oriented to person, place, month, year and knows the name of the president. SKIN: No rashes, ecchymoses or lesions. Warm and dry. HEAD: Atraumatic. Normocephalic. No temporal or scalp tenderness. EYES: Pupils equal round and reactive. No injection or drainage. ENT: Nose without bleeding, purulent drainage or septal hematoma. Airway patent. NECK: Trachea midline. No lymphadenopathy. Supple, nontender, no meningeal signs. CARDIOVASCULAR: Regular rate and rhythm without gallops, or rubs. There is a systolic murmur best heard on the left sternal border. No JVD. RESPIRATORY: Clear to auscultation. Breath sounds equal bilaterally. No wheezes , rales, or rhonchi. GASTROINTESTINAL: Abdomen soft, non-tender, nondistended. No guarding. MUSCULOSKELETAL: Extremities without clubbing, cyanosis, or edema. NEUROLOGICAL: Awake and alert. Cranial nerves II through XII intact. No focal neurological deficits. Normal speech. Laboratory Laboratory Tests Test 04/25/18 12:55 04/25/18 14:02 Urine Color YELLOW Urine Turbidity CLOUDY Urine pH 5.5 Urine Specific [place] 1.025 Urine Protein NEG Urine Glucose (UA) 1000 OR GREATER Urine Ketones NEG Urine Occult Blood SMALL Urine Nitrite POS Urine Bilirubin NEG Urine Urobilinogen 0.2 Urine Leukocyte Esterase SMALL Urine RBC 0-3 Urine WBC INNUM Urine WBC Clumps FEW Urine Bacteria MANY Microscopic Urinalysis Comment CULTURE INDICATED White Blood Count 11.3 Red Blood Count 5.46 Hemoglobin 13.2 Hematocrit 41.7 Mean Corpuscular Volume 76.4 Mean Corpuscular Hemoglobin 24.3 Mean Corpuscular Hemoglobin Concent 31.8 Red Cell Distribution Width 18.4 Platelet Count 299 Mean Platelet Volume 7.4 Neutrophils (%) (Auto) 73.0 Lymphocytes (%) (Auto) 20.6 Monocytes (%) (Auto) 5.0 Eosinophils (%) (Auto) 0.9 Basophils (%) (Auto) 0.5 Neutrophils # (Auto) 8.2 Lymphocytes # (Auto) 2.3 Monocytes # (Auto) 0.6 Eosinophils # (Auto) 0.1 Basophils # (Auto) 0.1 CBC Comment AUTO DIFF Differential Comment AUTO DIFF CONFIRMED Platelet Estimate NORMAL Platelet Morphology Comment NORMAL Blood Urea Nitrogen 12 Creatinine 0.76 Random Glucose 111 Total Protein 6.8 Albumin 3.1 Calcium Level 8.9 Alkaline Phosphatase 236 Aspartate Amino Transf (AST/SGOT) 28 Alanine Aminotransferase (ALT/SGPT) 26 Total Bilirubin 0.5 Sodium Level 141 Potassium Level 3.9 Chloride Level 105 Carbon Dioxide Level 29.2 Anion Gap 7 Estimat Glomerular Filtration Rate 75 Lactic Acid Level 1.0 Ammonia 17 Troponin I LESS THAN 0.02 Thyroid Stimulating Hormone 3rd Gen 1.410 Date/Time Source Procedure Growth Status 04/25/18 14:08 Blood Peripheral Aerobic Blood Culture Pending Received 04/25/18 14:08 Blood Peripheral Anaerobic Blood Culture Pending Received 04/25/18 12:55 Urine Clean Catch Urine Culture Pending Received Result Diagram: 04/25/18 1402 04/25/18 1402 Imaging Last Impressions Chest X-Ray 04/25/18 1353 Signed Impressions: CONCLUSION: 1. Minimal discoid atelectasis in the right lower lung zone. Caprini VTE Risk Assessment Caprini VTE Risk Assessment: Mod/High Risk (score >= 2) Caprini Risk Assessment Model Point Value = 1 Point Value = 2 Point Value = 3 Point Value = 5 Age 41-60 Minor surgery BMI > 25 kg/m2 Swollen legs Varicose veins or History of unexplained or recurrent spontaneous Oral contraceptives or hormone replacement Sepsis (< 1 month) Serious lung disease, including pneumonia (< 1 month) Abnormal pulmonary function Acute myocardial infarction Congestive heart failure (< 1 month) History of inflammatory bowel disease Medical patient at bed rest Age 61-74 Arthroscopic surgery Major open surgery (> 45 min) Laparoscopic surgery (> 45 min) Malignancy Confined to bed (> 72 hours) Immobilizing plaster cast Central venous access Age >= 75 History of VTE Family history of VTE Factor V Leiden Prothrombin [id number] Lupus anticoagulant Anticardiolipin antibodies Elevated serum homocysteine Heparin-induced thrombocytopenia Other congenital or acquired thrombophilia Stroke (< 1 month) Elective arthroplasty Hip, pelvis, or leg fracture Acute spinal cord injury (< 1 month) Prophylaxis Regimen Total Risk Factor Score Risk Level Prophylaxis Regimen 0-1 Low Early ambulation 2 Moderate Order ONE of the following: *Sequential Compression Device (SCD) *Heparin 5000 units SQ BID 3-4 Higher Order ONE of the following medications: *Heparin 5000 units SQ TID *Enoxaparin/Lovenox 40 mg SQ daily (WT < 150 kg, CrCl > 30 mL/min) *Enoxaparin/Lovenox 30 mg SQ daily (WT < 150 kg, CrCl > 10-29 mL/min) *Enoxaparin/Lovenox 30 mg SQ BID (WT < 150 kg, CrCl > 30 mL/min) AND/OR *Sequential Compression Device (SCD) 5 or more Highest Order ONE of the following medications: *Heparin 5000 units SQ TID (Preferred with Epidurals) *Enoxaparin/Lovenox 40 mg SQ daily (WT < 150 kg, CrCl > 30 mL/min) *Enoxaparin/Lovenox 30 mg SQ daily (WT < 150 kg, CrCl > 10-29 mL/min) *Enoxaparin/Lovenox 30 mg SQ BID (WT < 150 kg, CrCl > 30 mL/min) AND *Sequential Compression Device (SCD) Assessment and Plan Problem List: (1) Delirium ICD Code: R41.0 - Disorientation, unspecified (2) UTI (urinary tract infection) ICD Code: N39.0 - Urinary tract infection, site not specified Status: Acute (3) DM (diabetes mellitus) ICD Code: E11.9 - Type 2 diabetes mellitus without complications Status: Acute (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 Adkins is a pleasant 73 year old female with a history of Afib, DM, Lupus who presents to the ED due to confusion, disorientation noted by her daughters. She recently went on a trip to [place] and [place] and fell and hit her head in [place]. Following her fall, her CT head was unremarkable for any acute findings. Probable intermittent delirium - Etiology is not clear. At the time of this evaluation, patient is oriented x 3. Her speech and thoughts appears to be coherent. - I am concerned about post-concussive confusion, Urinary tract infection as well as possibly intermittent hypoglycemia due to hypoglycemic agents. - Will continue IV fluid, IV abx and monitor blood glucose. Urinary tract infection - UA indicates possible UTI, probably outpatient abx failure (Macrobid PO). - Will continue IV Ceftriaxone 1g Qday and follow cultures. Diabetes mellitus - Patient is on Glipizide as well as Levemir as well as Farxiga ( Dapagliflozin - SGLT2 inhibitor). - Farxiga could cause UTI. - Combined use of these DM medication is concerning for episodic hypoglycemia - On presentation, her Blood glucose was 111. We will start her on Levemir 5 units QHS and sliding scale insulin. Atrial fibrillation - Follows up with Dr. Blankenship. - Will continue Diltiazem 120mg Qday, Flecainide 100mg BID, Pradaxa 150mg BID. Hypothyroidism - continue Levothyroxine 150mcg Qday. Full code. Pradaxa. Physician Certification 2 Midnight Certification Type: Admission for Inpatient Services Order for Inpatient Services The services are ordered in accordance with Medicare regulations or non- Medicare payer requirements, as applicable. In the case of services not specified as inpatient-only, they are appropriately provided as inpatient services in accordance with the 2-midnight benchmark. Estimated LOS (days): 2 days is the estimated time the patient will need to remain in the hospital, assuming treatment plan goals are met and no additional complications. Post-Hospital Plan: Home Myles Lam DO Apr 25, 2018 15:38
[2018-04-25] MEDS ORDERED: ENOXAPARIN SODIUM 40 MG/0.4 ML SYRINGE SQ SCH (17:00)
[2018-04-25] MEDS ORDERED: GLUCAGON 1 MG/ML VIAL OTHER PRN (17:15)
[2018-04-25] MEDS ORDERED: DEXTROSE 50% IN WATER 50 ML VIAL(D50) IV PUSH PRN (17:15)
[2018-04-25] MEDS: SODIUM CHLOR 0.9% 1000 ML INJ 1,000 ML IV SCH (17:26)
[2018-04-25] MEDS: DOCUSATE SODIUM 100 MG CAP PO SCH (18:24)
[2018-04-25 20:00] VITALS: BP 181/77; PULSE 85; PULSE 86; RESP 20; TEMP 98.6; O2SAT 97
[2018-04-25] MEDS: INSULIN DETEMIR 100 UNITS/ML VIAL SQ SCH (21:00)
[2018-04-25] MEDS: INSULIN ASPART SUPPLEMENTAL SCALE SQ SCH (21:00)
[2018-04-25] MEDS: FLECAINIDE ACETATE 100 MG TAB PO SCH (22:03)
[2018-04-25] MEDS: DABIGATRAN ETEXILATE 150 MG CAP PO SCH (22:03)
[2018-04-25] MEDS: FAMOTIDINE 20 MG TAB PO SCH (22:04)
[2018-04-25] MEDS: SODIUM CHLORIDE 0.9% FLUSH 10 ML FLUSH IV FLUSH SCH (22:04)
[2018-04-25] MEDS: cloNIDine HCL 0.1 MG TAB PO PRN (23:44)
[2018-04-26] VITALS (7 sets, daily range): BP systolic 143–180; BP diastolic 77–92; PULSE 81–93; RESP 16–20; TEMP 97.6–98.6; O2SAT 94–97
[2018-04-26] MEDS: SODIUM CHLOR 0.9% 1000 ML INJ 1,000 ML IV SCH ×3 (00:21→21:30)
[2018-04-26] MEDS: LEVOTHYROXINE SODIUM 150 MCG TAB PO SCH (04:49)
[2018-04-26 06:02] LABS: AUTOMATED NEUTROPHIL # 4.6 TH/MM3 (1.8-7.7); BASOPHIL # 0.1 TH/MM3 (0-0.2); BASOPHIL % 0.8 % (0.0-2.0); EOSINOPHIL # 0.1 TH/MM3 (0-0.4); EOSINOPHIL % 1.1 % (0.0-4.0); HEMATOCRIT 40.4 % (35.0-46.0); HEMOGLOBIN 12.7 GM/DL (11.6-15.3); LYMPH % 27.2 % (9.0-44.0); MEAN CELL VOLUME 74.9 FL (80.0-100.0); MEAN CORPUSCULAR HEMOGLOBIN 23.6 PG (27.0-34.0); MEAN CORPUSCULAR HGB CONC 31.6 % (32.0-36.0); MEAN PLATELET VOLUME 8.3 FL (7.0-11.0); MONO % 9.9 % (0.0-8.0); MONOCYTE # 0.7 TH/MM3 (0-0.9); PLATELET COUNT 312 TH/MM3 (150-450); RED BLOOD COUNT 5.39 MIL/MM3 (4.00-5.30); RED CELL DISTRIBUTION WIDTH 19.2 % (11.6-17.2); WHITE BLOOD COUNT 7.5 TH/MM3 (4.0-11.0)
[2018-04-26 06:18] LABS: BICARBONATE 28.6 MEQ/L (21.0-32.0); CALCIUM 7.6 MG/DL (8.5-10.1); CREATININE 0.57 MG/DL (0.50-1.00)
[2018-04-26 06:45] LABS: OVALOCYTES 1+ (NORMAL)
[2018-04-26] MEDS: INSULIN ASPART SUPPLEMENTAL SCALE SQ SCH ×4 (07:56→22:07)
--- NOTE | 2018-04-26 08:27 | HHI.PR ---
Subjective Remarks Follow up for possible UTI, acute delirium. Patient is currently doing well. Resting in bed, on room air. No fever but states room is cold. Objective Vitals Vital Signs Date Time Temp Pulse Resp B/P (MAP) Pulse Ox O2 Delivery O2 Flow Rate FiO2 04/26/18 04:00 97.6 84 20 180/83 (115) 97 04/26/18 00:00 98.5 82 20 172/77 (108) 95 04/25/18 20:00 86 04/25/18 20:00 97 21 04/25/18 20:00 98.6 85 20 181/77 (111) 97 04/25/18 17:03 04/25/18 14:58 84 20 141/69 (93) 96 04/25/18 14:28 82 16 95 Room Air 04/25/18 14:28 95 04/25/18 12:36 98.2 83 16 150/68 (95) 96 I/O 04/25/18 04/25/18 04/25/18 04/26/18 04/26/18 04/26/18 07:00 15:00 23:00 07:00 15:00 23:00 Intake Total 1310 ml Balance 1310 ml Intake Oral 60 ml IV Total 1250 ml # Voids 6 Result Diagram: 04/26/18 0450 04/26/18 0450 Imaging Last Impressions Chest X-Ray 04/25/18 1353 Signed Impressions: CONCLUSION: 1. Minimal discoid atelectasis in the right lower lung zone. Objective Remarks GENERAL: Alert, Oriented x 3, NAD. SKIN: Warm and dry. HEAD: Normocephalic. EYES: No scleral icterus. No injection or drainage. NECK: Supple, trachea midline. No JVD or lymphadenopathy. CARDIOVASCULAR: Regular rate and rhythm without murmurs, gallops, or rubs. RESPIRATORY: Breath sounds equal bilaterally. No accessory muscle use. GASTROINTESTINAL: Abdomen soft, non-tender, nondistended. MUSCULOSKELETAL: No cyanosis, or edema. BACK: Nontender without obvious deformity. No CVA tenderness. Procedures None. 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 Adkins is a pleasant 73 year old female with a history of Afib, DM, Lupus who presents to the ED due to confusion, disorientation noted by her daughters. She recently went on a trip to [place] and [place] and fell and hit her head in [place]. Following her fall, her CT head was unremarkable for any acute findings. Probable intermittent delirium - Probably related post-concussive confusion, Urinary tract infection as well as possibly intermittent hypoglycemia due to hypoglycemic agents. - I am more convinced that patient has been having episodic hypoglycemic episodes before she came to the hospital. - Will continue IV fluid, IV abx and monitor blood glucose. Urinary tract infection - Urine cx growing GNR. - UA indicates possible UTI, probably outpatient abx failure (Macrobid PO). - Will continue IV Ceftriaxone 1g Qday and follow cultures. Diabetes mellitus - Patient is on Glipizide as well as Levemir as well as Farxiga ( Dapagliflozin - SGLT2 inhibitor). - Farxiga could cause UTI. - Combined use of these DM medication is concerning for episodic hypoglycemia - Blood glucose during this hospitalization has been 100-140 range. This is with Levemir 5 units QHS and sliding scale - At home she was on Farxiga, Glipizide and Levemir 16 units QHS. This combination is highly suspicious for hypoglycemic episodes which caused shaking tremors as well as mental confusion. - I would recommend low dose Glimepiride upon discharge since patient is unable to take. Januvia would be another option as it has low potential to cause hypoglycemia. Atrial fibrillation - Follows up with Dr. Blankenship. - Will continue Diltiazem 120mg Qday, Flecainide 100mg BID, Pradaxa 150mg BID. Hypothyroidism - continue Levothyroxine 150mcg Qday. Full code. Pradaxa. Myles Lam DO Apr 26, 2018 08:27
[2018-04-26] MEDS: DILTIAZEM-CD 120 MG CAP ER PO SCH (08:56)
[2018-04-26] MEDS: DABIGATRAN ETEXILATE 150 MG CAP PO SCH ×2 (08:57→21:58)
[2018-04-26] MEDS: DULoxetine HCl DR 60 MG CAP PO SCH (08:57)
[2018-04-26] MEDS: CAPTOPRIL 12.5 MG TAB PO SCH ×2 (08:57→21:00)
[2018-04-26] MEDS: FAMOTIDINE 20 MG TAB PO SCH ×2 (08:57→21:56)
[2018-04-26] MEDS: NIFEdipine 30 MG SUSTAINED RELEASE TAB PO SCH (08:57)
[2018-04-26] MEDS: FLECAINIDE ACETATE 100 MG TAB PO SCH ×2 (08:57→21:58)
[2018-04-26] MEDS: SODIUM CHLORIDE 0.9% FLUSH 10 ML FLUSH IV FLUSH SCH ×2 (08:58→21:00)
[2018-04-26] MEDS: DOCUSATE SODIUM 100 MG CAP PO SCH ×3 (09:00→18:08)
[2018-04-26] MEDS: cefTRIAXone INJ 1,000 MG in SODIUM CHLORIDE 0.9% INJ 100 ML IV SCH (09:04)
--- NOTE | 2018-04-26 09:22 | EKG ---
Date Performed: 04/25/2018 Time Performed: 14:14:32 PTAGE: 73 years EKG: Sinus rhythm BORDERLINE LEFT AXIS DEVIATION NONSPECIFIC T-WAVE ABNORMALITY BORDERLINE ECG Since the PREVIOUS TRACING , no significant change noted PREVIOUS TRACIN11/14/2017 05.48 DOCTOR: Javier Collazo Interpretating Date/Time 04/26/2018 09:17:13
--- NOTE | 2018-04-26 13:09 | RADRPT ---
EXAM DATE: 04/26/2018 1:00 PM EDT AGE/SEX: 73 years / Female INDICATIONS: Right shoulder pain post fall CLINICAL DATA: This is the patient's initial encounter. Patient reports that signs and symptoms have been present for 2 weeks and indicates a pain score of 4/10. MEDICAL/SURGICAL HISTORY: Lupus. Hypertension. Fibromyalgia . Right rotator cuff COMPARISON: No prior exams available for comparison. FINDINGS: Degenerative changes with a fracture of the acromium and distal clavicle. Humeral head is intact. Ricardo g apex clear. CONCLUSION: Fracture of the acromion above the glenoid. Fracture distal clavicle. Anatomic alignment. Electronically signed by: Gerald Sims MD 04/26/2018 1:07 PM EDT
[2018-04-26] MEDS ORDERED: diphenhydrAMINE HCL 25 MG CAP PO ONE (22:00)
[2018-04-26] MEDS: INSULIN DETEMIR 100 UNITS/ML VIAL SQ SCH (22:07)
[2018-04-27] VITALS (7 sets, daily range): BP systolic 120–186; BP diastolic 56–93; PULSE 79–94; RESP 20; TEMP 96.4–98.4; O2SAT 94–97
[2018-04-27] MEDS: LEVOTHYROXINE SODIUM 150 MCG TAB PO SCH (06:12)
[2018-04-27] MEDS: INSULIN ASPART SUPPLEMENTAL SCALE SQ SCH ×4 (08:00→20:44)
[2018-04-27] MEDS ORDERED: ONDANSETRON ODT 4 MG TAB PO PRN (08:00)
[2018-04-27] MEDS ORDERED: PROMETHAZINE INJ 25 MG/ML VIAL IM PRN (08:00)
--- NOTE | 2018-04-27 08:03 | HHI.PR ---
Subjective Remarks Follow up for possible UTI, acute delirium. Patient is resting in bed. She complains of right shoulder pain as well as nausea. She feels somewhat exhausted because she could not sleep much last night. No fever or chills. Objective Vitals Vital Signs Date Time Temp Pulse Resp B/P (MAP) Pulse Ox O2 Delivery O2 Flow Rate FiO2 04/27/18 07:36 98.4 92 20 186/93 (124) 95 04/27/18 04:00 96.9 83 20 148/87 (107) 97 04/27/18 00:00 97.3 85 20 120/56 (77) 96 04/26/18 21:00 91 04/26/18 20:00 97.8 93 20 170/81 (110) 94 04/26/18 16:00 98.6 87 17 158/92 (114) 94 04/26/18 12:00 97.6 81 16 143/82 (102) 96 I/O 04/26/18 04/26/18 04/26/18 04/27/18 04/27/18 04/27/18 07:00 15:00 23:00 07:00 15:00 23:00 Intake Total 1310 ml 960 ml 240 ml Balance 1310 ml 960 ml 240 ml Intake Oral 60 ml 960 ml 240 ml IV Total 1250 ml # Voids 6 9 7 # Bowel Movements 1 Result Diagram: 04/26/18 0450 04/26/18 0450 Imaging Last Impressions Shoulder X-Ray 04/26/18 0000 Signed Impressions: CONCLUSION: Fracture of the acromion above the glenoid. Fracture distal clavicle. Anatomic alignment. Chest X-Ray 04/25/18 1353 Signed Impressions: CONCLUSION: 1. Minimal discoid atelectasis in the right lower lung zone. Objective Remarks GENERAL: Alert, Oriented x 3, NAD. SKIN: Warm and dry. HEAD: Normocephalic. EYES: No scleral icterus. No injection or drainage. NECK: Supple, trachea midline. No JVD or lymphadenopathy. CARDIOVASCULAR: Regular rate and rhythm without murmurs, gallops, or rubs. RESPIRATORY: Breath sounds equal bilaterally. No accessory muscle use. GASTROINTESTINAL: Abdomen soft, non-tender, nondistended. MUSCULOSKELETAL: No cyanosis, or edema. BACK: Nontender without obvious deformity. No CVA tenderness. Procedures None. 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 Adkins is a pleasant 73 year old female with a history of Afib, DM, Lupus who presents to the ED due to confusion, disorientation noted by her daughters. She recently went on a trip to [place] and [place] and fell and hit her head in [place]. Following her fall, her CT head was unremarkable for any acute findings. Probable intermittent delirium - Probably related post-concussive confusion, Urinary tract infection as well as possibly intermittent hypoglycemia due to hypoglycemic agents. - I am more convinced that patient has been having episodic hypoglycemic episodes before she came to the hospital. - IV abx and monitor blood glucose. Urinary tract infection - Urine cx growing GNR. - UA indicates possible UTI, probably outpatient abx failure (Macrobid PO). - Will continue IV Ceftriaxone 1g Qday and follow cultures. Diabetes mellitus - Patient is on Glipizide as well as Levemir as well as Farxiga ( Dapagliflozin - SGLT2 inhibitor) at home. - Farxiga could cause UTI. - Continue Levemir 5 units and Sliding scale insulin. - Will consider oral glimepiride upon discharge. Atrial fibrillation - Follows up with Dr. Blankenship. - Will continue Diltiazem 120mg Qday, Flecainide 100mg BID, Pradaxa 150mg BID. Hypothyroidism - continue Levothyroxine 150mcg Qday. Full code. Pradaxa. Probable discharge to SNF on 04/28/2018. Myles Lam DO Apr 27, 2018 8:03 am
[2018-04-27] MEDS: CAPTOPRIL 12.5 MG TAB PO SCH ×2 (09:00→20:48)
[2018-04-27] MEDS: FLECAINIDE ACETATE 100 MG TAB PO SCH ×2 (09:09→20:47)
[2018-04-27] MEDS: DABIGATRAN ETEXILATE 150 MG CAP PO SCH ×2 (09:10→20:49)
[2018-04-27] MEDS: DOCUSATE SODIUM 100 MG CAP PO SCH ×3 (09:10→17:15)
[2018-04-27] MEDS: cloNIDine HCL 0.1 MG TAB PO PRN ×2 (09:10→12:57)
[2018-04-27] MEDS: DILTIAZEM-CD 120 MG CAP ER PO SCH (09:10)
[2018-04-27] MEDS: FAMOTIDINE 20 MG TAB PO SCH ×2 (09:11→20:49)
[2018-04-27] MEDS: NIFEdipine 30 MG SUSTAINED RELEASE TAB PO SCH (09:11)
[2018-04-27] MEDS: DULoxetine HCl DR 60 MG CAP PO SCH (09:11)
[2018-04-27] MEDS: SODIUM CHLORIDE 0.9% FLUSH 10 ML FLUSH IV FLUSH SCH ×2 (09:12→20:47)
[2018-04-27] MEDS: cefTRIAXone INJ 1,000 MG in SODIUM CHLORIDE 0.9% INJ 100 ML IV SCH (09:14)
[2018-04-27 11:25] LABS: HEMOGLOBIN A1C 7.2 % (4.3-6.0)
[2018-04-27] MEDS: INSULIN DETEMIR 100 UNITS/ML VIAL SQ SCH (20:45)
[2018-04-27] MEDS ORDERED: TEMAZEPAM 15 MG CAP PO PRN (21:00)
[2018-04-28] VITALS (7 sets, daily range): BP systolic 132–154; BP diastolic 62–70; PULSE 81–100; RESP 20; TEMP 96.5–99.7; O2SAT 93–97
[2018-04-28] MEDS: LEVOTHYROXINE SODIUM 150 MCG TAB PO SCH (06:38)
[2018-04-28] MEDS: INSULIN ASPART SUPPLEMENTAL SCALE SQ SCH ×4 (08:00→21:13)
--- NOTE | 2018-04-28 08:53 | HHI.PR ---
Subjective Remarks Follow up for possible UTI, acute delirium. There is a significant change in mental status overnight. Patient is somewhat agitated and does not recognize me as a physician, her daughter in the room. She does not attend remember or at least does not say the names of granddaughter and grandson. She remains afebrile. Objective Vitals Vital Signs Date Time Temp Pulse Resp B/P (MAP) Pulse Ox O2 Delivery O2 Flow Rate FiO2 04/28/18 07:22 98.5 94 20 135/67 (89) 97 04/28/18 04:00 96.5 81 20 140/65 (90) 93 04/28/18 00:00 96.8 87 20 133/62 (85) 96 04/27/18 20:00 86 04/27/18 20:00 96.4 86 20 167/76 (106) 94 04/27/18 18:15 18 04/27/18 15:14 96.8 79 20 123/66 (85) 95 04/27/18 11:14 96.6 85 20 171/79 (109) 95 I/O 04/27/18 04/27/18 04/27/18 04/28/18 04/28/18 04/28/18 07:00 15:00 23:00 07:00 15:00 23:00 Intake Total 240 ml 1100 ml 1280 ml 0 ml Balance 240 ml 1100 ml 1280 ml 0 ml Intake Oral 240 ml 1280 ml 0 ml IV Total 1100 ml # Voids 7 5 2 Result Diagram: 04/26/18 0450 04/26/18 0450 Imaging Last Impressions Shoulder X-Ray 04/26/18 0000 Signed Impressions: CONCLUSION: Fracture of the acromion above the glenoid. Fracture distal clavicle. Anatomic alignment. Chest X-Ray 04/25/18 1353 Signed Impressions: CONCLUSION: 1. Minimal discoid atelectasis in the right lower lung zone. Objective Remarks GENERAL: Alert, Does not answer when asked her name, place etc. SKIN: Warm and dry. HEAD: Normocephalic. EYES: No scleral icterus. No injection or drainage. NECK: Supple, trachea midline. No JVD or lymphadenopathy. CARDIOVASCULAR: Regular rate and rhythm without murmurs, gallops, or rubs. RESPIRATORY: Breath sounds equal bilaterally. No accessory muscle use. GASTROINTESTINAL: Abdomen soft, non-tender, nondistended. MUSCULOSKELETAL: No cyanosis, or edema. BACK: Nontender without obvious deformity. No CVA tenderness. Procedures None. 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 Adkins is a pleasant 73 year old female with a history of Afib, DM, Lupus who presents to the ED due to confusion, disorientation noted by her daughters. She recently went on a trip to [place] and [place] and fell and hit her head in [place]. Following her fall, her CT head was unremarkable for any acute findings. Severe delirium - Probably related post-concussive confusion, Urinary tract infection as well as possibly intermittent hypoglycemia due to hypoglycemic agents. - Patient's delirium is much more significant today 04/28/2018. - Due to history of recent fall and possible head injury, family is concerned about any organic brain problems. We will consult Neurology and Psychiatry as well. - She may benefit from Seroquel. Urinary tract infection - Urine cx growing Klebsiella sensitive to cephalosporins. - UA indicates possible UTI, probably outpatient abx failure (Macrobid PO). - Will continue IV Ceftriaxone 1g Qday Diabetes mellitus - Patient is on Glipizide as well as Levemir as well as Farxiga ( Dapagliflozin - SGLT2 inhibitor) at home. - Farxiga could cause UTI. - Continue Levemir 5 units and Sliding scale insulin. - Will consider oral glimepiride upon discharge. Atrial fibrillation - Follows up with Dr. Blankenship. - Will continue Diltiazem 120mg Qday, Flecainide 100mg BID, Pradaxa 150mg BID. Hypothyroidism - continue Levothyroxine 150mcg Qday. Full code. Pradaxa. Myles Lam DO Apr 28, 2018 08:53
[2018-04-28] MEDS ORDERED: SODIUM CHLOR 0.9% 1000 ML INJ 1,000 ML IV SCH (09:00)
[2018-04-28] MEDS: cefTRIAXone INJ 1,000 MG in SODIUM CHLORIDE 0.9% INJ 100 ML IV SCH (10:57)
[2018-04-28] MEDS: DILTIAZEM-CD 120 MG CAP ER PO SCH (10:58)
[2018-04-28] MEDS: DOCUSATE SODIUM 100 MG CAP PO SCH ×3 (10:59→17:31)
[2018-04-28] MEDS: FAMOTIDINE 20 MG TAB PO SCH ×2 (10:59→21:18)
[2018-04-28] MEDS: DULoxetine HCl DR 60 MG CAP PO SCH (10:59)
[2018-04-28] MEDS: DABIGATRAN ETEXILATE 150 MG CAP PO SCH ×2 (10:59→21:16)
[2018-04-28] MEDS: NIFEdipine 30 MG SUSTAINED RELEASE TAB PO SCH (10:59)
[2018-04-28] MEDS: GABAPENTIN 300 MG CAP PO SCH ×3 (10:59→17:31)
[2018-04-28] MEDS: LACTATED RINGER'S 1000 ML INJ 1,000 ML IV SCH ×2 (11:00→21:20)
[2018-04-28] MEDS: FLECAINIDE ACETATE 100 MG TAB PO SCH ×2 (11:00→21:10)
[2018-04-28] MEDS: SODIUM CHLORIDE 0.9% FLUSH 10 ML FLUSH IV FLUSH SCH ×2 (11:01→21:19)
[2018-04-28] MEDS: CAPTOPRIL 12.5 MG TAB PO SCH ×2 (11:02→21:18)
--- NOTE | 2018-04-28 21:16 | MB ---
cc: Anuel Canseco MD, PhD DATE: 04/28/2018 REASON FOR CONSULTATION: Mental status change. HISTORY OF PRESENT ILLNESS: This is a very pleasant 73-year-old female who was previously in good health. On 03/30, she fell and struck her head, unclear whether she lost consciousness or not, but apparently afterwards was functioning pretty well, was able to do some traveling. She had a CT scan, after she hit her head, of the brain, which is negative for hemorrhage. For the past week has had progressive decline in mental status with more confusion, not recognizing friends, etc. She has not had any gross seizure activity. PAST MEDICAL HISTORY: History of hypertension, atrial fibrillation, history of stroke in the past, fibromyalgia, Angwin's disease, bronchitis, cholecystectomy, left knee surgery, cataract surgery, appendectomy. MEDICATIONS AT HOME: Levemir, glipizide, flecainide, ergocalciferol, Levemir, Synthroid, stool softener, risedronate, ranitidine, nystatin, Lunesta, Klor-Con, folic acid, Estrace, duloxetine, diazepam, dexamethasone, Benadryl, Cortef, levocetirizine, , Singulair, Pradaxa 150 mg b.i.d., Myrbetriq, hydroxyzine, hydrocodone, Lasix. PHYSICAL EXAMINATION: VITAL SIGNS: Her blood pressure is 134/68, pulse is 86, respiratory rate is 20, temperature 98 degrees. NEUROLOGIC: Higher cortical function, she is alert, disoriented to date and place. Recalls 0/3 objects in 3 minutes. She is very confused, has poor naming, poof calculations. She can follow simple commands. Cranial nerves are intact. Motor exam is 5/5 groups. There is no drift. Fine motor skills normal. Reflexes are symmetric. IMPRESSION: Progressive encephalopathy. RECOMMENDATION: We will obtain an EEG as well as an MRI of the brain, check additional labs including B12 level, sedimentation rate. If the workup is negative, may consider a lumbar puncture. We have to clear her to be able to come off Pradaxa first, however, before LP. Anuel Canseco MD, PhD [place] , 08:05 PM , 09:15 PM
[2018-04-28] MEDS: INSULIN DETEMIR 100 UNITS/ML VIAL SQ SCH (21:20)
[2018-04-28 22:23] LABS: BILIRUBIN, URINE NEG (NEG); BLOOD, URINE NEG (NEG); GLUCOSE,URINE 1000 OR GREATER mg/dL (NEG); KETONE, URINE 40 mg/dL (NEG); NITRITE,URINE NEG (NEG); URINE COLOR YELLOW (YELLW/STRAW); URINE LEUKOCYTE ESTERASE NEG (NEG)
[2018-04-28 22:27] LABS: RBC, URINE 0-2 /hpf (0-3); SQUAMOUS EPITHELIAL CELL URINE 0-5 /hpf (0-5); WBC, URINE 0-2 /hpf (0-5)
[2018-04-29] VITALS (8 sets, daily range): BP systolic 131–173; BP diastolic 60–77; PULSE 86–98; RESP 18–20; TEMP 96.1–100; O2SAT 94–97
[2018-04-29] MEDS: LEVOTHYROXINE SODIUM 150 MCG TAB PO SCH (05:50)
[2018-04-29] MEDS: DOCUSATE SODIUM 100 MG CAP PO SCH ×3 (08:31→17:06)
[2018-04-29] MEDS: FAMOTIDINE 20 MG TAB PO SCH ×2 (08:31→22:10)
[2018-04-29] MEDS: DILTIAZEM-CD 120 MG CAP ER PO SCH (08:32)
[2018-04-29] MEDS: GABAPENTIN 300 MG CAP PO SCH ×3 (08:32→17:06)
[2018-04-29] MEDS: FLECAINIDE ACETATE 100 MG TAB PO SCH ×2 (08:32→22:02)
[2018-04-29] MEDS: DABIGATRAN ETEXILATE 150 MG CAP PO SCH ×2 (08:32→22:03)
[2018-04-29] MEDS: DULoxetine HCl DR 60 MG CAP PO SCH (08:32)
[2018-04-29] MEDS: NIFEdipine 30 MG SUSTAINED RELEASE TAB PO SCH (08:32)
[2018-04-29] MEDS: SODIUM CHLORIDE 0.9% FLUSH 10 ML FLUSH IV FLUSH SCH ×2 (08:34→22:09)
[2018-04-29] MEDS: LACTATED RINGER'S 1000 ML INJ 1,000 ML IV SCH (08:34)
[2018-04-29] MEDS: CAPTOPRIL 12.5 MG TAB PO SCH ×2 (08:34→22:05)
[2018-04-29] MEDS: cefTRIAXone INJ 1,000 MG in SODIUM CHLORIDE 0.9% INJ 100 ML IV SCH (08:35)
--- NOTE | 2018-04-29 08:42 | HHI.PR ---
Review/Management Diagnosis Encephalopathy. Possible post concussive syndrome. Possible psychogenic basis to mental status change Plan Follow up MRI and EEG. Diagnosis/Plan: Subjective Subjective Comments No acute events reported Her daughter thinks she is less confused this am Active Medications Current Medications Medications (Trade) Dose Ordered Sig/Shirley Route Start Time Stop Time Status Last Admin (NS Flush) 2 ml UNSCH PRN IV FLUSH 04/25/18 14:00 (NS Flush) 2 ml UNSCH PRN IV FLUSH 04/25/18 15:30 (NS Flush) 2 ml BID IV FLUSH 04/25/18 21:00 04/28/18 21:19 (Narcan Inj) 0.4 mg UNSCH PRN IV PUSH 04/25/18 15:30 (Milk Of Magnesia Liq) 30 ml Q12H PRN PO 04/25/18 15:30 (Senokot) 17.2 mg Q12H PRN PO 04/25/18 15:30 (Dulcolax Supp) 10 mg DAILY PRN RECTAL 04/25/18 15:30 (Lactulose Liq) 30 ml DAILY PRN PO 04/25/18 15:30 (Pradaxa) 150 mg BID PO 04/25/18 21:00 04/28/18 21:16 (Cardizem Cd) 120 mg DAILY PO 04/26/18 09:00 04/28/18 10:58 (Colace) 100 mg TID PO 04/25/18 18:00 04/28/18 17:31 (Cymbalta Dr) 60 mg DAILY PO 04/26/18 09:00 04/28/18 10:59 (Tambocor) 100 mg BID PO 04/25/18 21:00 04/28/18 21:10 (Synthroid) 150 mcg DAILY@0600 PO 04/26/18 06:00 04/29/18 05:50 (Pepcid) 20 mg BID PO 04/25/18 21:00 04/28/18 21:18 Ceftriaxone Sodium 1000 mg/ Sodium Chloride 100 ml @ 200 mls/hr Q24H IV 04/26/18 09:00 04/28/18 10:57 (D50w (Vial) Inj) 50 ml UNSCH PRN IV PUSH 04/25/18 17:15 (Glucagon Inj) 1 mg UNSCH PRN OTHER 04/25/18 17:15 (NovoLOG SUPPLEMENTAL SCALE) 1 ACHS SLIDING SCALE SQ 04/25/18 21:00 04/28/18 21:13 (Levemir Inj) 5 units HS SQ 04/25/18 21:00 04/28/18 21:20 (Roxicodone) 5 mg Q6H PRN PO 04/25/18 21:00 04/28/18 17:35 (Catapres) 0.1 mg Q6H PRN PO 04/25/18 23:30 04/27/18 12:57 (Procardia Xl) 30 mg DAILY PO 04/26/18 09:00 04/28/18 10:59 (Capoten) 12.5 mg Q12HR PO 04/26/18 09:00 04/28/18 21:18 (Zofran Odt) 4 mg Q6H PRN PO 04/27/18 08:00 (Phenergan Inj) 25 mg Q6H PRN IM 04/27/18 08:00 (Restoril) 15 mg HS PRN PO 04/27/18 21:00 04/29/18 01:54 (Neurontin) 300 mg TID PO 04/28/18 09:00 04/28/18 17:31 Lactated Ringer's 1,000 ml @ 84 mls/hr [id number] IV 04/28/18 09:00 04/28/18 21:20 Allergies Allergies Coded Allergies Sulfa (Sulfonamide Antibiotics) (Verified Allergy, Severe, N/V, 04/25/18) acetaminophen (Verified Allergy, Severe, red rash and hives, 04/25/18) amitriptyline (Verified Allergy, Severe, red,rash and hives, 04/25/18) baclofen (Verified Allergy, Severe, itch,rash and hives, 04/25/18) carisoprodol (Verified Allergy, Severe, red,rash,hives, 04/25/18) cyclobenzaprine (Verified Allergy, Severe, Hives, 04/25/18) diatrizoate meglumine (Verified Allergy, Severe, HIVES, ITCH, 04/25/18) doxycycline (Verified Allergy, Severe, red,rash,hives, 04/25/18) esomeprazole (Verified Allergy, Severe, HIVES, 04/25/18) gadobenic acid (Verified Allergy, Severe, HIVES, ITCH, 04/25/18) gadodiamide (Verified Allergy, Severe, HIVES, ITCH, 04/25/18) gadoteridol (Verified Allergy, Severe, HIVES, ITCH, 04/25/18) hydrocodone (Verified Allergy, Severe, red rash and hives, 04/25/18) hydromorphone (Verified Allergy, Severe, Hives, 04/25/18) hydroxychloroquine (Verified Allergy, Severe, Rash, 04/25/18) iodine (Verified Allergy, Severe, HIVES, ITCH, 04/25/18) iodixanol (Verified Allergy, Severe, HIVES, ITCH, 04/25/18) iohexol (Verified Allergy, Severe, HIVES, ITCH, 04/25/18) levofloxacin (Verified Allergy, Severe, Seizures, 04/25/18) metaxalone (Verified Allergy, Severe, Hives, 04/25/18) metformin (Verified Allergy, Severe, HIVES, 04/25/18) methocarbamol (Verified Allergy, Severe, RASH,HIVES, 04/25/18) morphine (Verified Allergy, Severe, Hives, 04/25/18) oxycodone (Verified Allergy, Severe, red rash and hives, 04/25/18) penicillin G (Verified Allergy, Severe, red rash and hives, 04/25/18) potassium iodide (Verified Allergy, Severe, HIVES, ITCH, 04/25/18) povidone-iodine (Verified Allergy, Severe, HIVES, ITCH, 04/25/18) pregabalin (Verified Allergy, Severe, Numbness, 04/25/18) sodium iodide (Verified Allergy, Severe, HIVES, ITCH, 04/25/18) sodium iodide (Verified Allergy, Severe, HIVES, ITCH, 04/25/18) sulfamethoxazole (Verified Allergy, Severe, N/V, 04/25/18) topiramate (Verified Allergy, Severe, red rash and hives, 04/25/18) trimethoprim (Verified Allergy, Severe, N/V, 04/25/18) lovastatin (Verified Adverse Reaction, Severe, ALOVASTATIN + NIACIN = ADVICOR (SIDE EFFECT FLUSHING), 04/25/18) niacin (Verified Adverse Reaction, Severe, NIACIN + LOVASTATIN = ADVICOR ( SIDE EFFECT FLUSHING), 04/25/18) Uncoded Allergies ONGLYZA ( Allergy, Mild, FEET SWELLING, 09/26/13) TRAJENTA ( Allergy, Mild, FEET SWELLING, 09/26/13) GLUCAVANCE ( Allergy, Unknown, UNKNOWN, 03/01/14) MOST ANTIBIOTICS ( Allergy, Unknown, UNKNOWN, 03/01/14) BYDUREON ( Adverse Reaction, Unknown, SWELLING, 03/01/14) Exam I&O / VS Vital Signs Date Time Temp Pulse Resp B/P (MAP) Pulse Ox O2 Delivery O2 Flow Rate FiO2 04/29/18 04:00 96.9 94 20 131/77 (95) 94 04/29/18 00:00 100.0 91 18 97 04/28/18 20:00 96 04/28/18 20:00 99.7 100 20 154/70 (98) 94 04/28/18 18:35 18 04/28/18 15:21 98.2 86 20 134/68 (90) 97 04/28/18 11:05 98.4 90 20 132/64 (86) 97 Exam Comments alert. WHen I asked her where she is she said "[place]" then laughed. I asked her to be serious but she did not answer appropriately. THinks november Speech fluent with no paraphasic errors. Follows all commands well. Orients to voice with no neglect CN intact MOTOR--no focal deficits, no myoclonus or tremor Objective Micro and Labs Laboratory Tests Test 04/28/18 20:37 04/28/18 22:15 Vitamin B12 Level 756 Urine Color YELLOW Urine Turbidity CLEAR Urine pH 6.0 Urine Specific Ira 1.020 Urine Protein NEG Urine Glucose (UA) 1000 OR GREATER Urine Ketones 40 Urine Occult Blood NEG Urine Nitrite NEG Urine Bilirubin NEG Urine Urobilinogen 0.2 Urine Leukocyte Esterase NEG Urine RBC 0-2 Urine WBC 0-2 Urine Squamous Epithelial Cells 0-5 Urine Bacteria NONE Microscopic Urinalysis Comment CULT NOT INDICATED Date/Time Source Procedure Growth Status 04/25/18 14:08 Blood Peripheral Aerobic Blood Culture - Preliminary NO GROWTH IN 3 DAYS Resulted 04/25/18 14:08 Blood Peripheral Anaerobic Blood Culture - Preliminary NO GROWTH IN 3 DAYS Resulted 04/25/18 12:55 Urine Clean Catch Urine Culture - Final Klebsiella Pneumoniae Multi-Drug Resistant Complete Anuel Canseco MD PhD Apr 29, 2018 08:42
[2018-04-29] MEDS: INSULIN ASPART SUPPLEMENTAL SCALE SQ SCH ×4 (08:45→22:09)
--- NOTE | 2018-04-29 10:39 | HHI.PR ---
Subjective Remarks Follow up for possible UTI, acute delirium. Patient is doing slightly better compared to yesterday. No fever, chills. Objective Vitals Vital Signs Date Time Temp Pulse Resp B/P (MAP) Pulse Ox O2 Delivery O2 Flow Rate FiO2 04/29/18 04:00 96.9 94 20 131/77 (95) 94 04/29/18 00:00 100.0 91 18 97 04/28/18 20:00 96 04/28/18 20:00 99.7 100 20 154/70 (98) 94 04/28/18 18:35 18 04/28/18 15:21 98.2 86 20 134/68 (90) 97 04/28/18 11:05 98.4 90 20 132/64 (86) 97 I/O 04/28/18 04/28/18 04/28/18 04/29/18 04/29/18 04/29/18 06:59 14:59 22:59 06:59 14:59 22:59 Intake Total 0 ml 1220 ml 767 ml Output Total 350 ml Balance 0 ml 1220 ml 417 ml Intake Oral 0 ml 1220 ml 240 ml IV Total 527 ml Output Urine Total 350 ml # Voids 2 5 2 # Bowel Movements 0 Result Diagram: 04/26/18 0450 04/26/18 0450 Imaging Last Impressions Brain MRI 04/29/18 0000 Signed Impressions: CONCLUSION: 1. Moderate motion. 2. Central and cortical atrophy with moderate periventricular white matter stephanie nges 3. Negative for an acute process 4. Motion does obscure fine detail. Shoulder X-Ray 04/26/18 0000 Signed Impressions: CONCLUSION: Fracture of the acromion above the glenoid. Fracture distal clavicle. Anatomic alignment. Chest X-Ray 04/25/18 1353 Signed Impressions: CONCLUSION: 1. Minimal discoid atelectasis in the right lower lung zone. Objective Remarks GENERAL: Alert, Does not answer when asked her name, place etc. SKIN: Warm and dry. HEAD: Normocephalic. EYES: No scleral icterus. No injection or drainage. NECK: Supple, trachea midline. No JVD or lymphadenopathy. CARDIOVASCULAR: Regular rate and rhythm without murmurs, gallops, or rubs. RESPIRATORY: Breath sounds equal bilaterally. No accessory muscle use. GASTROINTESTINAL: Abdomen soft, non-tender, nondistended. MUSCULOSKELETAL: No cyanosis, or edema. BACK: Nontender without obvious deformity. No CVA tenderness. Procedures None. 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 Adkins is a pleasant 73 year old female with a history of Afib, DM, Lupus who presents to the ED due to confusion, disorientation noted by her daughters. She recently went on a trip to [place] and [place] and fell and hit her head in [place]. Following her fall, her CT head was unremarkable for any acute findings. Severe delirium - Probably related post-concussive confusion, Urinary tract infection as well as possibly intermittent hypoglycemia due to hypoglycemic agents. - Delirium is somewhat better today. - Appreciate Neurology consult. Discussed with Dr. Canseco on 04/29/2018 - Dr. Canseco recommended LP either in-patient or outpatient. Patient is on Pradaxa which will require holding Pradaxa for 1-2 days to do LP. LP can be done in the outpatient setting and Dr. Canseco will see patient in the office. Urinary tract infection - Urine cx growing Klebsiella sensitive to cephalosporins. - Repeat UA shows no evidence of infection. - Will continue IV Ceftriaxone 1g Qday Diabetes mellitus - Patient is on Glipizide as well as Levemir as well as Farxiga ( Dapagliflozin - SGLT2 inhibitor) at home. - Farxiga could cause UTI. - Continue Levemir 5 units and Sliding scale insulin. - Will consider oral glimepiride upon discharge. Atrial fibrillation - Follows up with Dr. Blankenship. - Will continue Diltiazem 120mg Qday, Flecainide 100mg BID, Pradaxa 150mg BID. Hypothyroidism - continue Levothyroxine 150mcg Qday. Full code. Pradaxa. Myles Lam DO Apr 29, 2018 10:39
[2018-04-29] MEDS ORDERED: HYDROCORTISONE SOD SUCCINATE 100 MG VIAL IV PUSH ONE (11:00)
[2018-04-29] MEDS ORDERED: HYDROCORTISONE 10 MG TAB PO ONE (11:00)
--- NOTE | 2018-04-29 11:31 | MG ---
cc: Javier Gonzalez MD [id number] INDICATIONS: A 73-year-old woman. Hyperventilation not performed with atrial fibrillation, change in mental status. He has had oxycodone, Cymbalta and insulin. DESCRIPTION: Diffuse 7 Hz, 60 microvolt rhythm is seen. A lot of muscle artifact and movement artifact is noted. The patient is noted to be snoring, but does not reach stage II sleep. Some shivering is noted and she feels cold, but I do not see any seizure activity associated with that. Photic stimulation is performed without significant posterior driving. IMPRESSION: Some diffuse theta slowing consistent with a mild diffuse encephalopathy, but no focal abnormality was noted. No seizure activity was seen. Javier Gonzalez MD DJM/DL , 11:15 AM , 11:29 AM
--- NOTE | 2018-04-29 12:37 | RADRPT ---
EXAM DATE: 04/29/2018 12:20 PM EDT AGE/SEX: 73 years / Female INDICATIONS: Memory loss. CLINICAL DATA: This is the patient's initial encounter. Patient reports that signs and symptoms have been present for 2 days and indicates a pain score of 0/10. MEDICAL/SURGICAL HISTORY: Diabetes mellitus type II. Fusion, lumbar. Shoulder surgery. COMPARISON: No prior exams available for comparison. TECHNIQUE: Multiplanar, multisequence examination of the brain was performed without contrast. FINDINGS: Moderate motion artifact is present. Ventricles are mildly prominent with minimal periventricular whi te matter changes. Ventricular sizes are probably appropriate for the degree of sulcal atrophy. There is no parenchymal hemorrhage, acute infarction or mass lesion. Midline structures are intact And there are no extra-axial fluid collections appreciated. Posterior fossa is unremarkable with only mild atrophy. CONCLUSION: 1. Moderate motion. 2. Central and cortical atrophy with moderate periventricular white matter changes 3. Negative for an acute process 4. Motion does obscure fine detail. Electronically signed by: Gerald Sims MD 04/29/2018 12:36 PM EDT
--- NOTE | 2018-04-29 14:30 | PD.PSY.CON ---
Provisional Diagnosis Admission Date Apr 25, 2018 at 15:21 [place] I. Delirium superimposed to dementia [place] II. Deferred [place] III. DM, CVA History of Present Illness Service Psychiatry Consult Requested By Medicine Reason for Consult Dementia Primary Care Physician Kaylan Gu MD HPI The patient is a 73 year-old woman, domiciled with her , retired, without not psychiatric history, no previous suicide attempts, no previous psychiatric hospitalizations, with a medical history of lupus, diabetes, previous CVA, atrial fibrillation, seizures, who presents to the ED due to progressive decline in mental status, confusion, forgetfulness and disorientation. Ms. Adkins went on a 45 day tour recently. She went to [place] first then [place] where she fell and hit her head. Per daughters, her CT head was unremarkable and subsequently she went back to [place] at her daughter's house. While in [place], she showed some evidence of confusion. She had dysuria and mild hematuria as well. She was seen by [facility] and perhaps subsequently by physician, history is not clear. However, she was given Rx for Macrobid. Her confusion, disorientation did not improve. Patient's daughters decided to fly her to [place] where the patient normally resides. The patient was admitted due to AMS, UTI treated with with ceftriaxone 1 mg daily. Assaulted to psychiatry for altered mental status. I have seen and examined the patient, reviewed documentation, discussed the case with Dr. Lam, got collateral information from her Mr. Stanton. On my psychiatric evaluation the patient is found calm, superficially cooperative, pleasantly confused. The patient reports that she is very happy, however she does not know what she is, she does not know the reason of her hospitalization. She is completely disoriented in place, just partially oriented in time, she knows that is 2018, she thinks that the copying machine repairer is [employer]. She denies depressive symptoms, she denies anhedonia, she denies hopelessness, she denies helplessness, she denies suicidal enemas ideation, she denies visual and auditory hallucinations. The patient seems to be unable to form new memories, she is able to repeat 3 works to me, but unable to remember 3 minutes later, with an impaired attention or concentration, abstraction and executive function.. MM was 19/30. No agitation, no aggressive behavior present. No behavior dysregulation, no evidence of paranoia or delusions present. She denies the use of illegal drugs or alcohol. Her was able to tell me that the patient has been showing an is low but progress declining memory in the last year. Initially she was remembering some names, at times getting lost in the house, getting confused with TV characters, but in the last month she has been making accusations to her daughter's, misplacing things, getting lost, becoming paranoid to wear her . He is pleased that the patient has not been formally diagnosed with dementia. Review of Systems Constitutional: DENIES: Diaphoretic episodes, Fatigue, Fever, Weight gain, Weight loss, Chills, Dizziness, Change in appetite, Night Sweats Endocrine: DENIES: Abnorml menstrual pattern, Heat/cold intolerance, Polydipsia , Polyuria, Polyphagia Eyes: DENIES: Blurred vision, Diplopia, Eye inflammation, Eye pain, Vision loss , Photosensitivity, Double Vision Ears, nose, mouth, throat: DENIES: Tinnitus, Hearing loss, Vertigo, Nasal discharge, Oral lesions, Throat pain, Hoarseness, Ear Pain, Running Nose, Epistaxis, Sinus Pain, Toothache, Odynophagia Respiratory: DENIES: Apneas, Cough, Snoring, Wheezing, Hemoptysis, Sputum production, Shortness of breath Gastrointestinal: DENIES: Abdominal pain, Black stools, Bloody stools, Constipation, Diarrhea, Nausea, Vomiting, Difficulty Swallowing, Anorexia Genitourinary: DENIES: Abnormal vaginal bleeding, Dysmenorrhea, Dyspareunia, Sexual dysfunction, Urinary frequency, Urinary incontinence, Urgency, Hematuria , Dysuria, Nocturia, Vaginal discharge Musculoskeletal: DENIES: Joint pain, Muscle aches, Stiffness, Joint Swelling, Back pain, Neck pain Integumentary: DENIES: Abnormal pigmentation, Pruritus, Rash, Nail changes, Breast masses, Breast skin changes, Nipple discharge Hematologic/lymphatic: DENIES: Bruising, Lymphadenopathy Immunologic/allergic: DENIES: Eczema, Urticaria Neurologic: DENIES: Abnormal gait, Headache, Localized weakness, Paresthesias, Seizures, Speech Problems, Tremor, Poor Balance Psychiatric: COMPLAINS OF: Confusion, DENIES: Anxiety, Mood changes, Depression , Hallucinations, Agitation, Suicidal Ideation, Homicidal Ideation, Delusions Past Family Social History Coded Allergies: Sulfa (Sulfonamide Antibiotics) (Verified Allergy, Severe, N/V, 04/25/18) acetaminophen (Verified Allergy, Severe, red rash and hives, 04/25/18) amitriptyline (Verified Allergy, Severe, red,rash and hives, 04/25/18) baclofen (Verified Allergy, Severe, itch,rash and hives, 04/25/18) carisoprodol (Verified Allergy, Severe, red,rash,hives, 04/25/18) cyclobenzaprine (Verified Allergy, Severe, Hives, 04/25/18) diatrizoate meglumine (Verified Allergy, Severe, HIVES, ITCH, 04/25/18) doxycycline (Verified Allergy, Severe, red,rash,hives, 04/25/18) esomeprazole (Verified Allergy, Severe, HIVES, 04/25/18) gadobenic acid (Verified Allergy, Severe, HIVES, ITCH, 04/25/18) gadodiamide (Verified Allergy, Severe, HIVES, ITCH, 04/25/18) gadoteridol (Verified Allergy, Severe, HIVES, ITCH, 04/25/18) hydrocodone (Verified Allergy, Severe, red rash and hives, 04/25/18) hydromorphone (Verified Allergy, Severe, Hives, 04/25/18) hydroxychloroquine (Verified Allergy, Severe, Rash, 04/25/18) iodine (Verified Allergy, Severe, HIVES, ITCH, 04/25/18) iodixanol (Verified Allergy, Severe, HIVES, ITCH, 04/25/18) iohexol (Verified Allergy, Severe, HIVES, ITCH, 04/25/18) levofloxacin (Verified Allergy, Severe, Seizures, 04/25/18) metaxalone (Verified Allergy, Severe, Hives, 04/25/18) metformin (Verified Allergy, Severe, HIVES, 04/25/18) methocarbamol (Verified Allergy, Severe, RASH,HIVES, 04/25/18) morphine (Verified Allergy, Severe, Hives, 04/25/18) oxycodone (Verified Allergy, Severe, red rash and hives, 04/25/18) penicillin G (Verified Allergy, Severe, red rash and hives, 04/25/18) potassium iodide (Verified Allergy, Severe, HIVES, ITCH, 04/25/18) povidone-iodine (Verified Allergy, Severe, HIVES, ITCH, 04/25/18) pregabalin (Verified Allergy, Severe, Numbness, 04/25/18) sodium iodide (Verified Allergy, Severe, HIVES, ITCH, 04/25/18) sodium iodide (Verified Allergy, Severe, HIVES, ITCH, 04/25/18) sulfamethoxazole (Verified Allergy, Severe, N/V, 04/25/18) topiramate (Verified Allergy, Severe, red rash and hives, 04/25/18) trimethoprim (Verified Allergy, Severe, N/V, 04/25/18) lovastatin (Verified Adverse Reaction, Severe, ALOVASTATIN + NIACIN = ADVICOR (SIDE EFFECT FLUSHING), 04/25/18) niacin (Verified Adverse Reaction, Severe, NIACIN + LOVASTATIN = ADVICOR ( SIDE EFFECT FLUSHING), 04/25/18) Uncoded Allergies: ONGLYZA (Allergy, Mild, FEET SWELLING, 09/26/13) TRAJENTA (Allergy, Mild, FEET SWELLING, 09/26/13) GLUCAVANCE (Allergy, Unknown, UNKNOWN, 03/01/14) MOST ANTIBIOTICS (Allergy, Unknown, UNKNOWN, 03/01/14) BYDUREON (Adverse Reaction, Unknown, SWELLING, 03/01/14) Active Scripts Diltiazem CD 24 HR (Cardizem CD 24 HR) 120 Mg Caper, 120 MG PO DAILY for heart rate, #30 CAP 3 Refills Prov:Myles Lam DO 11/14/17 Reported Medications Insulin Detemir Inj (Levemir Flextouch Pen Inj) 300 unit/3 ML Pen, 16 UNITS SQ NIGHTLY for Blood Sugar Management, PEN 0 Refills 04/25/18 Glipizide (Glipizide) 5 Mg Tab, 5 MG PO DAILY for Blood Sugar Management, #30 TAB 0 Refills Take 30 minutes before a meal 04/25/18 Flecainide (Flecainide) 100 Mg Tab, 100 MG PO BID for Regulate Heart Beat, #60 TAB 0 Refills 04/25/18 Ergocalciferol (Ergocalciferol) 50,000 Unit Cap, 44228 UNITS PO Q30D for Nutritional Supplement, #30 CAP 0 Refills 04/25/18 Insulin Detemir Inj (Levemir Inj) 1,000 unit/ 10 ML Vial, 12 UNITS SQ HS for Blood Sugar Management, VIAL 0 Refills Do not mix with any other Insulin. 01/17/18 Levothyroxine (Synthroid) 137 Mcg Tab, 150 MCG PO DAILY for Thyroid, #30 TAB 0 Refills 11/13/17 Docusate Sodium (Stool Softener) 100 Mg Cap, 1 TAB PO TID 11/13/17 Risedronate (Risedronate) 150 Mg Tab, 150 MG PO Q30D for Manage Osteoporosis, # 1 TAB 0 Refills 11/13/17 Ranitidine (Ranitidine) 150 Mg Tab, 150 MG PO DAILY for Heartburn Management, # 30 TAB 0 Refills 11/13/17 Nystatin Liq (Nystatin Liq) 100,000 unit/ml Susp, 5 ML SWISH-SWAL QID for Infection, ML 0 Refills 11/13/17 Nitroglycerin SL (Nitrostat SL) 0.4 Mg Subl, 0.4 MG SL DIRECTED Y for CHEST PAIN, #100 TAB.SL 0 Refills 1 tablet under the tongue as needed for chest pain. Repeat every 5 minutes for a total of 3 DOSES or call 911 if NO relief. 11/13/17 Eszopiclone (Lunesta) 2 Mg Tab, 3 MG PO HS Y for INSOMNIA, TAB 0 Refills 11/13/17 Potassium Chloride ER (Klor-Con 10) 10 Meq Tab, 10 MEQ PO ONCE for Electrolyte Replacement, #1 TAB 0 Refills 11/13/17 Folic Acid (Folic Acid) 0.8 Mg Tab, 1 MG PO DAILY for Nutritional Supplement, TAB 0 Refills 11/13/17 Estradiol Vaginal (Estrace Vaginal) 0.01% Cream, 1 APPL VAGINAL HS for Estrogen Supplements, #1 TUBE 0 Refills 11/13/[address] (Duloxetine DR) 60 Mg Capdr, 60 MG PO DAILY, #30 CAP 0 Refills 11/13/17 Diazepam (Diazepam) 5 Mg Tab, 5 MG PO BID Y for ANXIETY, TAB 0 Refills 11/13/17 Dexamethasone Sod Phosphate Inj (Dexamethasone Sodium Phosphate Inj) 4 Mg/Ml Vial, 4 MG IM ONCE, #1 INJECTION 11/13/17 Cinnamon (Eql Cinnamon) 500 Mg Cap, 1000 MG PO BID, #1 BOTTLE 11/13/17 Diphenhydramine (Diphenhydramine) 25 Mg Tab, 50 MG PO Q6H Y for ALLERGIES, TAB 0 Refills 11/13/17 Levocetirizine (Levocetirizine) 5 Mg Tab, 5 MG PO DAILY for Allergy Management, #30 TAB 0 Refills 11/13/16 Hydrocortisone (Cortef) 5 Mg Tab, 5 MG PO DIRECTED for Control Inflammation, TAB 0 Refills 12Noon & 5pm take with food to decrease GI upset. 10/12/16 Dapagliflozin (Farxiga) 10 Mg Tab, 10 MG PO DAILY for Blood Sugar Management, TAB 0 Refills 10/12/16 Montelukast (Singulair) 10 Mg Tab, 10 MG PO DAILY for Allergies, TAB 0 Refills 10/12/16 Dabigatran (Pradaxa) 150 Mg Cap, 150 MG PO BID for Blood Clot Prevention, CAP 0 Refills 09/19/16 Pantoprazole (Protonix) 40 Mg Tab, 40 MG PO DAILY for Reflux, TAB 0 Refills 09/19/16 Mirabegron (Myrbetriq) 50 Mg Tab, 25 MG PO DAILY for Urinary Symptom Managemen, TAB 0 Refills 09/19/16 Hydroxyzine HCl (Hydroxyzine HCl) 50 Mg Tab, 25 MG PO TID Y for ITCHING, TAB 0 Refills 09/19/16 Hydrocodone-Acetaminophen (Hydrocodone-Acetaminophen) 5-300 Mg Tab, 1 TAB PO Q6H Y for PAIN, TAB 0 Refills 09/19/16 Furosemide (Furosemide) 20 Mg Tab, 20 MG PO DAILY for FLUID RETENTION, TAB 0 Refills 09/19/16 Clotrimazole Sudhir (Clotrimazole Sudhir) 10 Mg Troc, 10 MG PO QID Y for FUNGAL INFECTION, SUDHIR 0 Refills 09/19/16 Discontinued Reported Medications Turmeric Root Extract (Turmeric) Unknown Strength Capsule, 1 CAP PO BID for Nutritional Supplement 11/14/17 Zinc Gluconate (Zinc Gluconate) 50 Mg Tab, 50 MG PO DAILY, TAB 11/13/17 Albuterol Powder Inh (Proair Respiclick Inh) 90 Mcg/Act Aerp, 1 PUFF INH Q4H Y for SHORTNESS OF BREATH, #1 INHALER 0 Refills 11/13/17 [midrin] No Conflict Check, 1 CAP PO DIRECTED 11/13/17 Meclizine (Meclizine) 25 Mg Tab, 25 MG PO TID Y for VERTIGO, TAB 0 Refills 11/13/17 Linaclotide (Linzess) 290 Mcg Cap, 290 MCG PO DAILY, CAP 0 Refills 11/13/17 Hydrocortisone (Hydrocortisone) 20 Mg Tab, 20 MG PO DAILY, #30 TAB 0 Refills Take with food to decrease GI upset 11/13/17 Biotin W/ Vitamins C & E (Hair Skin & Nails) 1,250-7.5-7.5 Mcg-Mg-Unit Chew, 1 TAB PO TID 11/13/17 Gabapentin (Gabapentin) 400 Mg Cap, 400 CAP PO TID, #30 CAP 0 Refills 11/13/17 [formula 303] No Conflict Check, 1 TAB PO DAILY 11/13/17 Celecoxib (Celecoxib) 200 Mg Cap, 200 MG PO DAILY for Pain Management, CAP 0 Refills 11/13/17 Biotin (Biotin) 5,000 Mcg Tab.rapdis, 1 TAB PO QID 11/13/17 Bethanechol (Bethanechol) 25 Mg Tab, 25 MG PO QID for Urinary Symptom Managemen , TAB 0 Refills 11/13/17 Azelastine Nasal [place] (Azelastine Nasal [place]) 0.15% [place], 1 SPRAY EACH NARE BID for Allergies, #1 BOTTLE 0 Refills To each nostril. 11/13/17 Aspirin (Aspirin) 81 Mg Chew, 81 MG CHEW DAILY, TAB 0 Refills 11/13/17 Pravastatin (Pravastatin) 40 Mg Tab, 40 MG PO HS for Cholesterol Management, TAB 0 Refills 10/12/16 Ondansetron (Ondansetron) 8 Mg Tab, 8 MG PO QID Y for NAUSEA, TAB 1 Refill 09/19/16 Liraglutide Inj (Victoza Inj) 18 Mg/3 Ml Pen, 1.8 MG SQ DAILY, PEN 0 Refills 09/19/16 Cholecalciferol (Vitamin D3) 10,000 Unit Tab, 43484 UNITS PO HS for Nutritional Supplement, BOTTLE 0 Refills 09/19/16 Discontinued Scripts Flecainide (Flecainide) 100 Mg Tab, 100 MG PO BID for Heart rhythm, #60 TAB Prov:Myles Lam DO 11/14/17 Current Medications Medications (Trade) Dose Ordered Sig/Shirley Route Start Time Stop Time Status Last Admin (NS Flush) 2 ml UNSCH PRN IV FLUSH 04/25/18 14:00 (NS Flush) 2 ml UNSCH PRN IV FLUSH 04/25/18 15:30 (NS Flush) 2 ml BID IV FLUSH 04/25/18 21:00 04/29/18 08:34 (Narcan Inj) 0.4 mg UNSCH PRN IV PUSH 04/25/18 15:30 (Milk Of Magnesia Liq) 30 ml Q12H PRN PO 04/25/18 15:30 (Senokot) 17.2 mg Q12H PRN PO 04/25/18 15:30 (Dulcolax Supp) 10 mg DAILY PRN RECTAL 04/25/18 15:30 (Lactulose Liq) 30 ml DAILY PRN PO 04/25/18 15:30 (Pradaxa) 150 mg BID PO 04/25/18 21:00 04/29/18 08:32 (Cardizem Cd) 120 mg DAILY PO 04/26/18 09:00 04/29/18 08:32 (Colace) 100 mg TID PO 04/25/18 18:00 04/29/18 12:48 (Cymbalta Dr) 60 mg DAILY PO 04/26/18 09:00 04/29/18 08:32 (Tambocor) 100 mg BID PO 04/25/18 21:00 04/29/18 08:32 (Synthroid) 150 mcg DAILY@0600 PO 04/26/18 06:00 04/29/18 05:50 (Pepcid) 20 mg BID PO 04/25/18 21:00 04/29/18 08:31 Ceftriaxone Sodium 1000 mg/ Sodium Chloride 100 ml @ 200 mls/hr Q24H IV 04/26/18 09:00 04/29/18 08:35 (D50w (Vial) Inj) 50 ml UNSCH PRN IV PUSH 04/25/18 17:15 (Glucagon Inj) 1 mg UNSCH PRN OTHER 04/25/18 17:15 (NovoLOG SUPPLEMENTAL SCALE) 1 ACHS SLIDING SCALE SQ 04/25/18 21:00 04/29/18 12:48 (Levemir Inj) 5 units HS SQ 04/25/18 21:00 04/28/18 21:20 (Roxicodone) 5 mg Q6H PRN PO 04/25/18 21:00 04/29/18 08:32 (Catapres) 0.1 mg Q6H PRN PO 04/25/18 23:30 04/27/18 12:57 (Procardia Xl) 30 mg DAILY PO 04/26/18 09:00 04/29/18 08:32 (Capoten) 12.5 mg Q12HR PO 04/26/18 09:00 04/29/18 08:34 (Zofran Odt) 4 mg Q6H PRN PO 04/27/18 08:00 (Phenergan Inj) 25 mg Q6H PRN IM 04/27/18 08:00 (Restoril) 15 mg HS PRN PO 04/27/18 21:00 04/29/18 01:54 (Neurontin) 300 mg TID PO 04/28/18 09:00 04/29/18 12:48 Lactated Ringer's 1,000 ml @ 84 mls/hr [id number] IV 04/28/18 09:00 04/28/18 21:20 (SoluCORTEF INJ) 50 mg Q6H IV PUSH 04/29/18 17:00 (Aricept) 5 mg DAILY PO 04/30/18 09:00 UNV (Namenda) 5 mg DAILY PO 04/29/18 14:00 UNV Family Psych History No family psychiatric history Social History Patient was born and raised in [facility], she lives in [place] with her , she has 3 kids, retired Patient's Strengths (min. 2) Family support Physical Exam No tremors, no agitation, no psychomotor retardation, no EPS, no catatonia Vital Signs Vital Signs Date Time Temp Pulse Resp B/P (MAP) Pulse Ox O2 Delivery O2 Flow Rate FiO2 04/29/18 08:14 93 04/29/18 08:00 96.1 20 173/74 (107) 95 04/25/18 20:00 21 04/25/18 14:28 Room Air I/O 04/29/18 04/29/18 04/30/18 08:00 16:00 00:00 Intake Total 767 ml Output Total 350 ml Balance 417 ml Lab Results Test 04/28/18 20:37 04/28/18 22:15 Vitamin B12 Level 756 PG/ML Urine Color YELLOW Urine Turbidity CLEAR Urine pH 6.0 Urine Specific [place] 1.020 Urine Protein NEG mg/dL Urine Glucose (UA) 1000 OR GREATER mg/dL Urine Ketones 40 mg/dL Urine Occult Blood NEG Urine Nitrite NEG Urine Bilirubin NEG Urine Urobilinogen 0.2 MG/DL Urine Leukocyte Esterase NEG Urine RBC 0-2 /hpf Urine WBC 0-2 /hpf Urine Squamous Epithelial Cells 0-5 /hpf Urine Bacteria NONE /hpf Microscopic Urinalysis Comment CULT NOT INDICATED Date/Time Source Procedure Growth Status 04/25/18 14:08 Blood Peripheral Aerobic Blood Culture - Preliminary NO GROWTH IN 4 DAYS Resulted 04/25/18 14:08 Blood Peripheral Anaerobic Blood Culture - Preliminary NO GROWTH IN 4 DAYS Resulted 04/25/18 12:55 Urine Clean Catch Urine Culture - Final Klebsiella Pneumoniae Multi-Drug Resistant Complete Mental Status Examination Appearance: Appropriate Consciousness: Alert Orientation: Person, Place (Partially) Motor Activity: Normal gait Speech: Unremarkable Language: Adequate Fund of Knowledge: Adequate Attention and Concentration: Adequate Memory: Impaired Mood: Appropriate Affect: Appropriate Thought Process & Associations: Intact Thought Content: Appropriate Hallucination Type: None Delusion Type: None Suicidal Ideation: No Suicidal Plan: No Suicidal Intention: No Homicidal Ideation: No Homicidal Plan: No Homicidal Intention: No Insight: Fair Judgment: Impulsive Assessment & Plan Problem List: (1) Delirium ICD Codes: R41.0 - Disorientation, unspecified Assessment & Plan: On psychiatric evaluation I find a patient that is calm, superficially cooperative, pleasantly confused. She denies symptoms of depression, denies anxiety, denies elidia and psychosis. She denies suicidal enemas ideation, she denies visual and auditory hallucinations. The patient does present confused, visible impairment in new memory forming, attention, concentration, executive function, abstraction that as per has been now going on for the last month, at the beginning slowly and progressively, but in the last days abruptly. There is no agitation, no aggressive behavior, no behavioral dysregulation at this moment. However, the is able to relate that the patient has been paranoid toward her daughters and her in the last days. In my MMS patient is 19/30 suggesting the patient might have a moderate dementia. Additional neuropsychological testing will be quite useful in order to establish a diagnosis of dementia. But, I strongly recommend Namenda 5 mg daily and Aricept 5 mg daily to a slower progression of dementia. Patient can also benefit of a low dose of Seroquel, 12.5 mg twice daily for underlying paranoia. She does not meet criteria for involuntary psychiatric admission at this moment. Brief supportive psychotherapy provided. Consult appreciated. Assessment & Plan Estimated LOS: days Angel Naqvi MD Apr 29, 2018 14:30
[2018-04-29] MEDS: MEMANTINE HCL 5 MG TAB PO SCH (15:02)
[2018-04-29] MEDS ORDERED: GLIM2TAB PO (16:29)
[2018-04-29] MEDS ORDERED: CAPT12.52 PO (16:29)
[2018-04-29] MEDS ORDERED: NAME5TAB2 PO (16:29)
[2018-04-29] MEDS ORDERED: CEFU1TAB20 PO (16:29)
[2018-04-29] MEDS ORDERED: NIFE30TA8 PO (16:29)
[2018-04-29] MEDS ORDERED: OXYC-392 PO (16:29)
[2018-04-29] MEDS ORDERED: ARIC5TAB6 PO (16:29)
[2018-04-29] MEDS ORDERED: NEUR300C PO (16:29)
[2018-04-29] MEDS ORDERED: HYDR20TA PO (16:31)
[2018-04-29] MEDS ORDERED: HYDR5TAB64 PO (16:31)
--- NOTE | 2018-04-29 16:51 | HHI.FF ---
Face to Face Verification Diagnosis: (1) Neurologic abnormality (2) Delirium (3) DM (diabetes mellitus) (4) UTI (urinary tract infection) Physical Therapy Order: Evaluate and Treat, Improve ambulation, Strength and gait training Home Health Nursing Order: Medical education Diabetic education Nursing assessment with vital signs I have seen patient Eliza Adkins on 04/29/18. My clinical findings support the need for the requested home health care services because: Ltd mobility - disease progression Deconditioned w/ increased weakness Med compliance is questionable Limited ability to care for self Need for psychosocial assistance Impaired cognition/judgement High risk of falls Infection w/ risk of complications I certify that my clinical findings support that this patient is homebound because: Unsteady gait/balance Unsafe to leave home unassisted Need for psychosocial assistance [id number] bed/chair Unable to use public transportation Myles Lam DO Apr 29, 2018 4:51 pm
[2018-04-29] MEDS: HYDROCORTISONE SOD SUCCINATE 100 MG VIAL IV PUSH SCH ×2 (17:05→22:12)
[2018-04-29] MEDS: INSULIN DETEMIR 100 UNITS/ML VIAL SQ SCH (22:02)
[2018-04-30 00:01] VITALS: BP 145/72; PULSE 90; RESP 20; TEMP 99.3; O2SAT 96
[2018-04-30] MEDS: LACTATED RINGER'S 1000 ML INJ 1,000 ML IV SCH ×2 (01:11→08:27)
[2018-04-30 04:26] VITALS: BP 142/67; PULSE 92; RESP 18; TEMP 97.5; O2SAT 96
[2018-04-30] MEDS: LEVOTHYROXINE SODIUM 150 MCG TAB PO SCH (06:04)
[2018-04-30] MEDS: HYDROCORTISONE SOD SUCCINATE 100 MG VIAL IV PUSH SCH ×2 (06:04→12:16)
[2018-04-30] MEDS ORDERED: LORazepam 2 MG/ML VIAL IV PUSH ONE (07:45)
[2018-04-30 07:58] VITALS: BP 145/70; PULSE 91; RESP 16; TEMP 97.6
[2018-04-30] MEDS: INSULIN ASPART SUPPLEMENTAL SCALE SQ SCH ×2 (08:00→12:54)
[2018-04-30] MEDS: cefTRIAXone INJ 1,000 MG in SODIUM CHLORIDE 0.9% INJ 100 ML IV SCH (08:27)
[2018-04-30] MEDS: SODIUM CHLORIDE 0.9% FLUSH 10 ML FLUSH IV FLUSH SCH (08:27)
[2018-04-30] MEDS ORDERED: DONEPEZIL HCL 5 MG TAB PO SCH (09:00)
[2018-04-30] MEDS: DOCUSATE SODIUM 100 MG CAP PO SCH ×2 (10:01→12:15)
[2018-04-30] MEDS: CAPTOPRIL 12.5 MG TAB PO SCH (10:01)
[2018-04-30] MEDS: DULoxetine HCl DR 60 MG CAP PO SCH (10:01)
[2018-04-30] MEDS: DILTIAZEM-CD 120 MG CAP ER PO SCH (10:01)
[2018-04-30] MEDS: FLECAINIDE ACETATE 100 MG TAB PO SCH (10:02)
[2018-04-30] MEDS: DABIGATRAN ETEXILATE 150 MG CAP PO SCH (10:02)
[2018-04-30] MEDS: NIFEdipine 30 MG SUSTAINED RELEASE TAB PO SCH (10:02)
[2018-04-30] MEDS: QUEtiapine FUMARATE 25 MG TAB PO SCH ×2 (10:02→12:15)
[2018-04-30] MEDS: FAMOTIDINE 20 MG TAB PO SCH (10:02)
[2018-04-30] MEDS: GABAPENTIN 300 MG CAP PO SCH ×2 (10:02→12:15)
[2018-04-30] MEDS: MEMANTINE HCL 5 MG TAB PO SCH (10:02)
[2018-04-30] MEDS ORDERED: ONDANSETRON HCL 4 MG/2 ML VIAL IV PUSH ONE (10:30)
[2018-04-30 13:22] VITALS: BP 109/54; PULSE 84; RESP 16; TEMP 96.5; O2SAT 97
== END 2018-04-30 16:11 | disposition home health service (06) | DRG 690 ==
LOC: PHED 12:14 → PHEDA 15:21 → PH3A 16:55
PROVIDERS: ADMIT Hospitalist; ATTEND Hospitalist
DX: N39.0 Urinary tract infection, site not specified (principal); E27.1 Primary adrenocortical insufficiency; F03.90 Unspecified dementia, unspecified severity, without behavioral disturbance, psychotic disturbance, mood disturbance, and anxiety; E11.9 Type 2 diabetes mellitus without complications; I10 Essential (primary) hypertension; L93.0 Discoid lupus erythematosus; F07.81 Postconcussional syndrome; I48.91 Unspecified atrial fibrillation; R31.9 Hematuria, unspecified; R30.0 Dysuria; Z86.73 Personal history of transient ischemic attack (TIA), and cerebral infarction without residual deficits; Z79.4 Long term (current) use of insulin; M79.7 Fibromyalgia; Z79.01 Long term (current) use of anticoagulants; K21.9 Gastro-esophageal reflux disease without esophagitis; Z82.49 Family history of ischemic heart disease and other diseases of the circulatory system; E03.9 Hypothyroidism, unspecified; M25.511 Pain in right shoulder
CPT/HCPCS: 70551; 71045; 73030; 80048; 80053; 81001; 82140; 82607; 82948; 83036; 83605; 84443; 84484; 85025; 87040; 87077; 87086; 87186; 87899; 93005; 95819; 96365; J0692; J0696; J1720; J1815; J2060; J7030; J7120

== ENCOUNTER 2018-06-07 20:54 | Inpatient (IN) ==
--- NOTE | 2018-06-07 22:48 | ED ---
HPI General Chief Complaint: Seizure Stated Complaint: Seizure/Cardiac Time Seen by Provider: 06/07/18 22:31 Source: patient and family History of Present Illness HPI Narrative: Patient is a 73-year-old female, past medical history significant for chronic tremor, previous CVA, dementia, who presents with complaint of worsening tremor. She states that over the last several days to weeks she has had a worsening tremor of all 4 extremities and is concerned that it may be a seizure. She has not lost consciousness during any of these episodes. No fever nor chills. No chest pain nor dyspnea but she has had a cough. She has not hit her head nor had any trauma. Most of the history comes from her . Her states that she has some chronic confusion but appears to be worse at this time. MD complaint: possible seizure Onset (ago): week(s) -: second(s) Witnessed: yes - by other Trauma: No Seizure History: none Place: home Possible Precipitating Event: none Associated symptoms: cough Treatments prior to arrival: none Related Data Home Medications Medication Instructions Recorded Confirmed dabigatran etexilate [Pradaxa] 150 mg PO BID 06/04/18 06/07/18 diltiazem HCl 120 mg PO DAILY 06/04/18 06/07/18 donepezil [Aricept] 10 mg PO DAILY 06/04/18 06/07/18 flecainide 100 mg PO Q12H 06/04/18 06/07/18 gabapentin 200 mg PO TID 06/04/18 06/07/18 glimepiride 3 mg PO QAM 06/04/18 06/07/18 hydrocortisone 5 mg PO HS 06/04/18 06/07/18 hydrocortisone 20 mg PO DAILY 06/04/18 06/07/18 montelukast [Singulair] 10 mg 06/04/18 pravastatin 40 mg PO DAILY 06/04/18 06/07/18 memantine [Namenda] 06/07/18 Allergies Allergy/AdvReac Type Severity Reaction Status Date / Time acetaminophen Allergy Severe red rash Verified 06/04/18 13:32 and hives amitriptyline Allergy Severe red,rash Verified 06/04/18 13:32 and hives baclofen Allergy Severe itch,rash Verified 06/04/18 13:32 and hives carisoprodol Allergy Severe red,rash,hi Verified 06/04/18 13:32 ves cyclobenzaprine Allergy Severe Hives Verified 06/04/18 13:32 diatrizoate meglumine Allergy Severe HIVES, ITCH Verified 06/04/18 13:32 doxycycline Allergy Severe red,rash,hi Verified 06/04/18 13:32 ves esomeprazole Allergy Severe HIVES Verified 06/04/18 13:32 gadobenic acid Allergy Severe HIVES, ITCH Verified 06/04/18 13:32 gadodiamide Allergy Severe HIVES, ITCH Verified 06/04/18 13:32 gadoteridol Allergy Severe HIVES, ITCH Verified 06/04/18 13:32 hydrocodone Allergy Severe red rash Verified 06/04/18 13:32 and hives hydromorphone Allergy Severe Hives Verified 06/04/18 13:32 hydroxychloroquine Allergy Severe Rash Verified 06/04/18 13:32 iodine Allergy Severe HIVES, ITCH Verified 06/04/18 13:32 iodixanol Allergy Severe HIVES, ITCH Verified 06/04/18 13:32 iohexol Allergy Severe HIVES, ITCH Verified 06/04/18 13:32 levofloxacin Allergy Severe Seizures Verified 06/04/18 13:32 metaxalone Allergy Severe Hives Verified 06/04/18 13:32 metformin Allergy Severe HIVES Verified 06/04/18 13:32 methocarbamol Allergy Severe RASH,HIVES Verified 06/04/18 13:32 morphine Allergy Severe Hives Verified 06/04/18 13:32 penicillin G Allergy Severe red rash Verified 06/04/18 13:32 and hives potassium iodide Allergy Severe HIVES, ITCH Verified 06/04/18 13:32 povidone-iodine Allergy Severe HIVES, ITCH Verified 06/04/18 13:32 pregabalin Allergy Severe Numbness Verified 06/04/18 13:32 sodium iodide Allergy Severe HIVES, ITCH Verified 06/04/18 13:32 sodium iodide Allergy Severe HIVES, ITCH Verified 06/04/18 13:32 Sulfa (Sulfonamide Allergy Severe N/V Verified 06/04/18 13:32 Antibiotics) sulfamethoxazole Allergy Severe N/V Verified 06/04/18 13:32 topiramate Allergy Severe red rash Verified 06/04/18 13:32 and hives trimethoprim Allergy Severe N/V Verified 07/31/18 13:32 lovastatin AdvReac Severe ALOVASTATIN Verified 06/04/18 13:32 + NIACIN = ADVICOR (SIDE EFFECT FLUSHING) niacin AdvReac Severe NIACIN + Verified 06/04/18 13:32 LOVASTATIN = ADVICOR (SIDE EFFECT FLUSHING) ONGLYZA Allergy Mild FEET Uncoded 06/04/18 13:32 SWELLING TRAJENTA Allergy Mild FEET Uncoded 06/04/18 13:32 SWELLING GLUCAVANCE Allergy Unknown UNKNOWN Uncoded 06/04/18 13:32 MOST ANTIBIOTICS Allergy Unknown UNKNOWN Uncoded 06/04/18 13:32 BYDUREON AdvReac Unknown SWELLING Uncoded 06/04/18 13:32 Review of Systems Except as stated in HPI: all other systems reviewed are negative Constitutional Denies fever(s) Eyes Denies blurry vision ENT Denies nasal congestion Cardiovascular Denies chest pain Respiratory Reports cough Gastrointestinal Denies abdominal pain Genitourinary Denies flank pain Musculoskeletal Denies back pain Integumentary/Breasts Denies rash Neurologic Denies numbness, Reports tremor(s) and Denies weakness PMFSH Medical History Medical History Arthritis (Acute) Fibromyalgia (Acute) History of Davon's disease (Acute) History of adrenal insufficiency (Acute) History of atrial fibrillation (Acute) History of diabetic gastroparesis (Acute) History of pneumonia (Acute) History of seizures (Acute) Lupus (Acute) Rheumatoid arthritis (Acute) Surgical History Surgical History H/O laminectomy (Acute) History of appendectomy (Acute) History of cholecystectomy (Acute) History of rotator cuff surgery (Acute) History of total knee replacement (Acute) Social History Social History Substance History: No History of Abuse How Often Do You Have a Drink Containing Alcohol: Never Immunization History Tetanus Immunization: >5 Years Hx Influenza Vaccine This Season: Yes Exam Narrative Exam Narrative: GENERAL: Elderly female in no acute distress. SKIN: Focused skin assessment warm/dry. HEAD: Atraumatic. Normocephalic. EYES: Pupils equal and round. No scleral icterus. No injection or drainage. ENT: No nasal bleeding or discharge. Mucous membranes pink and moist. NECK: Trachea midline. No JVD. CARDIOVASCULAR: Regular rate and rhythm. No murmur appreciated. RESPIRATORY: No accessory muscle use. Clear to auscultation. Breath sounds equal bilaterally. GASTROINTESTINAL: Abdomen soft, non-tender, nondistended. Hepatic and splenic margins not palpable. MUSCULOSKELETAL: No obvious deformities. No clubbing. No cyanosis. No edema. NEUROLOGICAL: Awake and alert but confused. No obvious cranial nerve deficits. Equal strength and sensation in all 4 extremities. Normal speech. Tremor present in all 4 extremities intermittently. PSYCHIATRIC: Appropriate mood and affect; insight and judgment normal. Course Initial Documented Vital Signs Temperature 98.5 F 06/07/18 21:36 Pulse Rate 80 06/07/18 21:36 Respiratory Rate 18 06/07/18 21:36 Blood Pressure 177/81 H 06/07/18 21:36 Pulse Oximetry 98 06/07/18 21:36 Last Documented Vital Signs Temperature 98.4 F 06/08/18 07:26 Pulse Rate 78 06/08/18 07:26 Respiratory Rate 16 06/08/18 07:26 Blood Pressure 180/75 H 06/08/18 07:26 Pulse Oximetry 99 06/08/18 07:26 Medical Decision Making MDM Narrative Medical decision making narrative: Patient is a 73-year-old female who presented with complaint of worsening tremor and concern that it could possibly be a seizure. She had these tremors while in the emergency department which were in all 4 extremities at the same time with a normal level of consciousness. Labs were unremarkable. CT of her head did not show any acute intracranial injury. Chest x-ray was concerning for pneumonia and the patient was in the hospital within the last 3 months. She has been given vancomycin and Rocephin to cover for hospital-acquired infection and she has been admitted to the hospitalist for further workup and management. Differential Diagnosis Differential Diagnosis: Differential diagnosis includes but is not limited to tremor, focal seizure, generalized seizure, metabolic disturbance, pneumonia, acute coronary syndrome, vasospasm. Medical Records Medical records reviewed: Yes I reviewed the patient's medical records. Lab Data Lab results reviewed: Yes I reviewed the patient's lab results. Lab results narrative: Labs unremarkable. Result diagrams: 06/07/18 22:45 06/07/18 22:45 Lab Results 06/07/18 06/07/18 Range/Units 22:45 22:45 WBC 8.4 (4.0-11.0) th/mm3 RBC 5.46 H (4.00-5.30) mil/mm3 Hgb 13.5 (11.6-15.3) gm/dL Hct 42.1 (35.0-46.0) % MCV 77.1 L (80.0-100.0) fL MCH 24.8 L (27.0-34.0) pg MCHC 32.2 (32.0-36.0) % RDW 19.1 H (11.6-17.2) % Plt Count 273 (150-450) th/mm3 MPV 8.3 (7.0-11.0) fL Neut % (Auto) 57.3 (16.0-70.0) % Lymph % (Auto) 29.9 (9.0-44.0) % Hidalgo % (Auto) 10.4 H (0.0-8.0) % Eos % (Auto) 0.9 (0.0-4.0) % Baso % (Auto) 1.5 (0.0-2.0) % Neut # (Auto) 4.8 (1.8-7.7) th/mm3 Lymph # (Auto) 2.5 (1.0-4.8) th/mm3 Hidalgo # (Auto) 0.9 (0.0-0.9) th/mm3 Eos # (Auto) 0.1 (0.0-0.4) th/mm3 Baso # (Auto) 0.1 (0.0-0.2) th/mm3 WBC Differential . Differential Comment Auto diff final Sodium 142 (136-145) meq/L Potassium 3.8 (3.5-5.1) meq/L Chloride 108 H (98-107) meq/L Carbon Dioxide 28.2 (21.0-32.0) meq/L Anion Gap 6 (5-15) meq/L BUN 13 (7-18) mg/dL Creatinine 1.14 H (0.50-1.00) mg/dL Estimated GFR 47 L (>89) mL/min Random Glucose 137 H (74-106) mg/dL Calcium 8.9 (8.5-10.1) mg/dL Troponin I 0.02 (0.02-0.05) ng/mL Imaging Data Attestation: I personally reviewed and interpreted this imaging study as follows : My impression: Right-sided consolidation. Radiologist's impression: Chest X-Ray 06/07/18 22:48 CONCLUSION: There is a new ill-defined infiltrate in the posterior medial right lung. Head CT 06/07/18 22:48 CONCLUSION: 1. No acute findings in the brain. 2. 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 . Discharge Plan Discharge Disposition Patient Disposition: 30 Still Patient Discharge Condition Condition: Stable Discharge Details Diagnosis: Pneumonia Physicians Team ED Provider: Nhung Marmolejo Primary Care Provider: Kaylan Gu Attending Provider: Bennie Lam Status ED Status: Left Department Discharge Information Discharge Date/Time: 06/08/18 01:41
--- NOTE | 2018-06-07 23:12 | XR ---
EXAM DATE: 06/07/2018 11:03 PM EDT AGE/SEX: 73 years / Female INDICATIONS: . Chest pain with history of cardiac disease. CLINICAL DATA: This is the patient's initial encounter. Patient reports that signs and symptoms have been present for 1 day and indicates a pain score of 5/10. MEDICAL/SURGICAL HISTORY: . Diabetes mellitus type II. Fusion, lumbar. Shoulder surgery . COMPARISON: [facility], CHEST SINGLE AP, 04/25/2018. [facility], CHEST SINGLE AP, 11/13/2017. [facility], XR CHEST PA AND LAT, 12/04/2016. . FINDINGS: There is an ill-defined opacity in the medial right midlung on the frontal view and posterior on the lateral view, suggesting an infiltrate. The left lung is clear. Both hemidiaphragms well delineated. The heart is normal size. Metallic device projected over the heart from presumed atrial septal repair . Hardware in the lumbar region with discontinuity of both rods, similar to prior. Stable degenerativ e changes in the right shoulder and resorption of the distal right clavicle. CONCLUSION: There is a new ill-defined infiltrate in the posterior medial right lung. Electronically signed by: Siva Nugent MD 06/07/2018 11:11 PM EDT
[2018-06-07 23:14] LABS: Baso # (Auto) 0.1 th/mm3 (0.0-0.2); Baso % (Auto) 1.5 % (0.0-2.0); Eos # (Auto) 0.1 th/mm3 (0.0-0.4); Eos % (Auto) 0.9 % (0.0-4.0); Hematocrit 42.1 % (35.0-46.0); Hemoglobin 13.5 gm/dL (11.6-15.3); Lymph # (Auto) 2.5 th/mm3 (1.0-4.8); Lymph % (Auto) 29.9 % (9.0-44.0); Mean Corpuscular HGB Conc 32.2 % (32.0-36.0); Mean Corpuscular Hemoglobin 24.8 pg (27.0-34.0); Mean Corpuscular Volume 77.1 fL (80.0-100.0); Mean Platelet Volume 8.3 fL (7.0-11.0); Mono # (Auto) 0.9 th/mm3 (0.0-0.9); Mono % (Auto) 10.4 % (0.0-8.0); Neut # (Auto) 4.8 th/mm3 (1.8-7.7); Neut % (Auto) 57.3 % (16.0-70.0); Platelet Count 273 th/mm3 (150-450); Red Blood Count 5.46 mil/mm3 (4.00-5.30); Red Cell Distribution Width 19.1 % (11.6-17.2); White Blood Count 8.4 th/mm3 (4.0-11.0)
--- NOTE | 2018-06-07 23:27 | CT ---
EXAM DATE: 06/07/2018 11:12 PM EDT AGE/SEX: 73 years / Female INDICATIONS: Possible seizure. CLINICAL DATA: This is the patient's initial encounter. Patient reports that signs and symptoms have been present for 1 day and indicates a pain score of 0/10. MEDICAL/SURGICAL HISTORY: Lupus. Colbert's disease. Fibromyalgia. Appendectomy. Cholecystectomy. Knee replacement. RADIATION DOSE: 56.35 CTDI (mGy) COMPARISON: [facility], MRI BRAIN W/O CONTRAST, 04/29/2018. . TECHNIQUE: CT of the head without contrast. Using automated exposure control and adjustment of the mA and/or kV according to patient size, radiation dose was kept as low as reasonably achievable to ob tain optimal diagnostic quality images. DICOM format image data is available electronically for revi ew and comparison. FINDINGS: Cerebrum: The ventricles and sulci are prominent, and there is decreased attenuation in the perivent ricular white matter, characteristic of diffuse ischemic change, stable from prior. There is also a s table old infarct in the left inferior calcarine region. No evidence of midline shift, mass lesion, hemorrhage or acute infarction. No extraaxial fluid collections are seen. Posterior Fossa: The cerebellum and brainstem are intact. The 4th ventricle is midline. The cerebe llopontine angle is unremarkable. Extracranial: The visualized portion of the orbits is intact. Skull: The calvaria is intact. No evidence of skull fracture. CONCLUSION: 1. No acute findings in the brain. 2. Stable appearance to central and cortical atrophy, ischemic change in the periventricular white m atter, and old left occipital infarction. . Electronically signed by: Siva Nugent MD 06/07/2018 11:25 PM EDT
[2018-06-07 23:34] LABS: Calcium 8.9 mg/dL (8.5-10.1); Carbon Dioxide 28.2 meq/L (21.0-32.0); Potassium 3.8 meq/L (3.5-5.1)
[2018-06-07 23:37] LABS: Troponin I 0.02 ng/mL (0.02-0.05)
[2018-06-07] MEDS ORDERED: Vancomycin Inj 1,250 MG in Sodium Chlor 0.9% Inj 250 ML IV.SIG ONE (23:51)
[2018-06-08] MEDS ORDERED: Temazepam 15 MG Capsule PO PRN (00:06)
[2018-06-08] MEDS ORDERED: Bisacodyl 10 MG Supp RECTAL PRN (00:06)
--- NOTE | 2018-06-08 02:11 | P.HPIM ---
History of Present Illness Primary Care Physician: Kaylan Gu MD History of Present Illness: This is a 73-year-old female with a PMH of HTN, A. fib, DM, Marietta's Disease, Lupus, Rheumatoid Arthritis and h/o Seizure Disorder who was brought to the ER by for episode of "tremors". Pt w/ recent admit 04/25-04/30/18 for Delirium/UTI, s/p eval by Dr. Canseco w/ recommendation for LP, however pt on Pradaxa and LP deferred w/ plans for outpatient eval. Per , pt was seen by Dr. Gonzalez for their first visit and had multiple lab tests done, but no LP. Last night, pt noted to have involuntary movements of her left arm while sleeping. Today, notes pt w/ bilateral upper extremity and bilateral lower extremity tremors- has videos of these events on his cell phone. Pt believes they are seizures, however states she hasn't had a seizure in 10yrs. History difficult as pt and give conflicting information. On arrival, BP 177/81, HR 80, O2 sat 98% on RA, Afebrile. CBC essentially unremarkable. Chemistry essentially unremarkable. CT Head with no acute findings. CXR with infiltrate posterior medial right lung. S/p Rocephin/Vanc in ER - Diagnosis (1) Tremors of nervous system (2) PNA (pneumonia) (3) DM (diabetes mellitus) (4) Afib Review of Systems PAST FAMILY HISTORY: Reviewed. No h/o DM or CAD All other systems reviewed negative except as stated in HPI [facility] - History History Provided By: Patient - Medical History Medical History: Medical History (Last Reviewed 06/04/18 @ 14:28 by Umm Douglas DO) Arthritis Fibromyalgia History of Davon's disease History of adrenal insufficiency History of atrial fibrillation History of diabetic gastroparesis History of pneumonia History of seizures Lupus Rheumatoid arthritis - Surgical History Surgical History: Surgical History (Last Reviewed 06/04/18 @ 14:21 by Umm Douglas DO) H/O laminectomy History of appendectomy History of cholecystectomy History of rotator cuff surgery History of total knee replacement - Tobacco History Second Hand Smoke Exposure: No Smoking Status: Never smoker - Alcohol History How Often Do You Have a Drink Containing Alcohol: Never - Substance Use History Substance History: No History of Abuse - Travel History Recent Travel in the [place] Within the Last 8 Weeks: No Recent Travel Out of the Country Within the Last 8 Weeks: No - Immunization History Tetanus Immunization: >5 Years Hx Influenza Vaccine This Season: Yes Medications and Allergies Active Medications: Active Medications Al Hydroxide/Mg Hydroxide (Milk Of Magnesia Liq) 30 ml PO Q12H PRN PRN Reason: Mild Constipation Bisacodyl (Dulcolax Supp) 10 mg RECTAL DAILY PRN PRN Reason: SEVERE CONSITIPATION Azithromycin 500 mg/ Sodium (Chloride) 250 mls @ 250 mls/hr IV.SIG Q24H LILLIAN Sodium Chloride (Ns Inj) 1,000 mls @ 100 mls/hr IV.CONT .Q10H LILLIAN Lactulose (Lactulose Liq) 30 ml PO DAILY PRN PRN Reason: SEVERE CONSITIPATION Lorazepam (Ativan Inj) 0.5 mg IV.PUSH Q4H PRN PRN Reason: TREMOR Ondansetron HCl (Zofran Inj) 4 mg IV.PUSH Q6H PRN PRN Reason: NAUSEA OR VOMITING Senna/Docusate Sodium (Stephanie-Colace) 1 tab PO BID LILLIAN Sennosides (Senokot) 17.2 mg PO Q12H PRN PRN Reason: Moderate Constipation Temazepam (Restoril) 15 mg PO HS PRN PRN Reason: INSOMNIA Allergies Allergy/AdvReac Type Severity Reaction Status Date / Time acetaminophen Allergy Severe red rash Verified 06/04/18 13:32 and hives amitriptyline Allergy Severe red,rash Verified 06/04/18 13:32 and hives baclofen Allergy Severe itch,rash Verified 06/04/18 13:32 and hives carisoprodol Allergy Severe red,rash,hi Verified 06/04/18 13:32 ves cyclobenzaprine Allergy Severe Hives Verified 06/04/18 13:32 diatrizoate meglumine Allergy Severe HIVES, ITCH Verified 06/04/18 13:32 doxycycline Allergy Severe red,rash,hi Verified 06/04/18 13:32 ves esomeprazole Allergy Severe HIVES Verified 06/04/18 13:32 gadobenic acid Allergy Severe HIVES, ITCH Verified 06/04/18 13:32 gadodiamide Allergy Severe HIVES, ITCH Verified 06/04/18 13:32 gadoteridol Allergy Severe HIVES, ITCH Verified 06/04/18 13:32 hydrocodone Allergy Severe red rash Verified 06/04/18 13:32 and hives hydromorphone Allergy Severe Hives Verified 06/04/18 13:32 hydroxychloroquine Allergy Severe Rash Verified 06/04/18 13:32 iodine Allergy Severe HIVES, ITCH Verified 06/04/18 13:32 iodixanol Allergy Severe HIVES, ITCH Verified 06/04/18 13:32 iohexol Allergy Severe HIVES, ITCH Verified 06/04/18 13:32 levofloxacin Allergy Severe Seizures Verified 06/04/18 13:32 metaxalone Allergy Severe Hives Verified 06/04/18 13:32 metformin Allergy Severe HIVES Verified 06/04/18 13:32 methocarbamol Allergy Severe RASH,HIVES Verified 06/04/18 13:32 morphine Allergy Severe Hives Verified 06/04/18 13:32 penicillin G Allergy Severe red rash Verified 06/04/18 13:32 and hives potassium iodide Allergy Severe HIVES, ITCH Verified 06/04/18 13:32 povidone-iodine Allergy Severe HIVES, ITCH Verified 06/04/18 13:32 pregabalin Allergy Severe Numbness Verified 06/04/18 13:32 sodium iodide Allergy Severe HIVES, ITCH Verified 06/04/18 13:32 sodium iodide Allergy Severe HIVES, ITCH Verified 06/04/18 13:32 Sulfa (Sulfonamide Allergy Severe N/V Verified 06/04/18 13:32 Antibiotics) sulfamethoxazole Allergy Severe N/V Verified 06/04/18 13:32 topiramate Allergy Severe red rash Verified 06/04/18 13:32 and hives trimethoprim Allergy Severe N/V Verified 06/04/18 13:32 lovastatin AdvReac Severe ALOVASTATIN Verified 06/04/18 13:32 + NIACIN = ADVICOR (SIDE EFFECT FLUSHING) niacin AdvReac Severe NIACIN + Verified 06/04/18 13:32 LOVASTATIN = ADVICOR (SIDE EFFECT FLUSHING) ONGLYZA Allergy Mild FEET Uncoded 06/04/18 13:32 SWELLING TRAJENTA Allergy Mild FEET Uncoded 06/04/18 13:32 SWELLING GLUCAVANCE Allergy Unknown UNKNOWN Uncoded 06/04/18 13:32 MOST ANTIBIOTICS Allergy Unknown UNKNOWN Uncoded 06/04/18 13:32 BYDUREON AdvReac Unknown SWELLING Uncoded 06/04/18 13:32 Home Medications Medication Instructions Recorded Confirmed Type dabigatran etexilate [Pradaxa] 150 mg PO BID 06/04/18 06/07/18 History diltiazem HCl 120 mg PO DAILY 06/04/18 06/07/18 History donepezil [Aricept] 10 mg PO DAILY 06/04/18 06/07/18 History flecainide 100 mg PO Q12H 06/04/18 06/07/18 History gabapentin 200 mg PO TID 06/04/18 06/07/18 History glimepiride 3 mg PO QAM 06/04/18 06/07/18 History hydrocortisone 5 mg PO HS 06/04/18 06/07/18 History hydrocortisone 20 mg PO DAILY 06/04/18 06/07/18 History montelukast [Singulair] 10 mg 06/04/18 History pravastatin 40 mg PO DAILY 06/04/18 06/07/18 History memantine [Namenda] 06/07/18 History Exam Vital signs: Vital Signs 06/07/18 21:36 06/07/18 21:41 06/07/18 22:27 Temperature 98.5 F 99.2 F Pulse Rate 80 82 Respiratory Rate 18 18 Blood Pressure 177/81 H Pulse Oximetry 98 98 06/08/18 01:28 Temperature 98 F Pulse Rate 79 Respiratory Rate 18 Blood Pressure 173/98 H Pulse Oximetry 97 Intake & Output 06/07/18 06/07/18 06/08/18 06:59 18:59 06:59 Weight 75 kg Narrative: PE: GENERAL: Elderly white female in no acute distress. at bedside. HEENT: PERRLA, EOMI. No scleral icterus or conjunctival pallor. No lid lag or facial droop. CARDIOVASCULAR: Regular rate and rhythm. No obvious murmurs to auscultation. No chest tenderness to palpation. RESPIRATORY: No obvious rhonchi or wheezing. Clear to auscultation. Breath sounds equal bilaterally. GASTROINTESTINAL: Abdomen soft, non-tender, nondistended. BS normal. MUSCULOSKELETAL: Extremities without clubbing, cyanosis, or edema. No obvious deformities. NEUROLOGICAL: Awake, alert. No focal neurologic deficits. Moving both upper and lower extremities spontaneously. Results - Labs CBC & Chem 7: 06/07/18 22:45 06/07/18 22:45 Labs: Short CBC 06/07/18 Range/Units 22:45 WBC 8.4 (4.0-11.0) th/mm3 Hgb 13.5 (11.6-15.3) gm/dL Hct 42.1 (35.0-46.0) % Plt Count 273 (150-450) th/mm3 BMP 06/07/18 22:45 Sodium 142 Potassium 3.8 Chloride 108 H Carbon Dioxide 28.2 BUN 13 Creatinine 1.14 H Calcium 8.9 Cardiac Enzymes 06/07/18 Range/Units 22:45 Troponin I 0.02 (0.02-0.05) ng/mL - Imaging Impressions Chest X-Ray 06/07/18 22:48 CONCLUSION: There is a new ill-defined infiltrate in the posterior medial right lung. Head CT 06/07/18 22:48 CONCLUSION: 1. No acute findings in the brain. 2. 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 . Caprini VTE Risk Assessment Caprini VTE Risk Assessment: Moderate/High Risk (score >= 2) Caprini Risk Assessment Model: Point Value = 1 Point Value = 2 Point Value = 3 Point Value = 5 Age 41-60 Minor surgery BMI > 25 kg/m2 Swollen legs Varicose veins or History of unexplained or recurrent spontaneous Oral contraceptives or hormone replacement Sepsis (< 1 month) Serious lung disease, including pneumonia (< 1 month) Abnormal pulmonary function Acute myocardial infarction Congestive heart failure (< 1 month) History of inflammatory bowel disease Medical patient at bed rest Age 61-74 Arthroscopic surgery Major open surgery (> 45 min) Laparoscopic surgery (> 45 min) Malignancy Confined to bed (> 72 hours) Immobilizing plaster cast Central venous access Age >= 75 History of VTE Family history of VTE Factor V Leiden Prothrombin [id number] Lupus anticoagulant Anticardiolipin antibodies Elevated serum homocysteine Heparin-induced thrombocytopenia Other congenital or acquired thrombophilia Stroke (< 1 month) Elective arthroplasty Hip, pelvis, or leg fracture Acute spinal cord injury (< 1 month) Prophylaxis Regimen: Total Risk Factor Score Risk Level Prophylaxis Regimen 0-1 Low Early ambulation 2 Moderate Order ONE of the following: *Sequential Compression Device (SCD) *Heparin 5000 units SQ BID 3-4 Higher Order ONE of the following medications: *Heparin 5000 units SQ TID *Enoxaparin/Lovenox 40 mg SQ daily (WT < 150 kg, CrCl > 30 mL/min) *Enoxaparin/Lovenox 30 mg SQ daily (WT < 150 kg, CrCl > 10-29 mL/min) *Enoxaparin/Lovenox 30 mg SQ BID (WT < 150 kg, CrCl > 30 mL/min) AND/OR *Sequential Compression Device (SCD) 5 or more Highest Order ONE of the following medications: *Heparin 5000 units SQ TID (Preferred with Epidurals) *Enoxaparin/Lovenox 40 mg SQ daily (WT < 150 kg, CrCl > 30 mL/min) *Enoxaparin/Lovenox 30 mg SQ daily (WT < 150 kg, CrCl > 10-29 mL/min) *Enoxaparin/Lovenox 30 mg SQ BID (WT < 150 kg, CrCl > 30 mL/min) AND *Sequential Compression Device (SCD) Assessment and Plan - Assessment (1) Tremors of nervous system Code(s): R25.1 - Tremor, unspecified Status: Acute (2) PNA (pneumonia) Code(s): J18.9 - Pneumonia, unspecified organism Status: Acute (3) DM (diabetes mellitus) Code(s): E11.9 - Type 2 diabetes mellitus without complications Status: Acute (4) Afib Code(s): I48.91 - Unspecified atrial fibrillation Status: Acute - Plan A/P: 1. Tremors: notes acute onset of left arm tremor last night in addition to bilateral upper and lower extremity tremor today, has videos on his cell phone. CT Head w/ no acute findings, images reviewed. H/o Seizure Disorder, on Dilantin approx 10yrs ago, ?focal seizures, will check EEG for further eval. Ativan prn. Consult Dr. Gonzalez for further eval/ recommendations. 2. PNA: CXR w/ new infiltrate posterior medial right lung, s/p Vanc/Rocephin in ER. Continue w/ IV Abx. 3. DM: Sliding scale w/ Accu-cheks. 4. A-fib: Chronic. Resume home medications, hold Pradaxa for possible LP. 5. DVT Prophylaxis: SCD/Teds, resume Pradaxa if no intervention. 6. Social work for d/c planning as needed 7. Case discussed w/ ER physician at length, labs/records/imaging reviewed by me. H&P: Quality - VTE Deep Vein Thrombosis/Pulmonary Embolism Present on Admission: No
[2018-06-08] MEDS: Flecainide 100 MG Tablet PO SCH ×2 (03:44→16:15)
[2018-06-08] MEDS: Sod Chloride 0.9% Inj 1,000 ML IV.CONT SCH ×3 (03:49→21:33)
[2018-06-08] MEDS: Senna/Docusate Sodium 8.6/50 MG Tablet PO SCH ×2 (08:53→21:34)
[2018-06-08] MEDS: dilTIAZem CD 120 MG Capsule PO SCH (08:53)
[2018-06-08] MEDS: Gabapentin 100 MG Capsule PO SCH ×3 (08:53→18:16)
[2018-06-08] MEDS: Azithromycin Inj 500 MG in Sodium Chlor 0.9% Inj 250 ML IV.SIG SCH (08:54)
[2018-06-08] MEDS ORDERED: Dextrose 50% in Water 50 ML Vial IV.PUSH PRN (13:14)
--- NOTE | 2018-06-08 13:31 | P.PNIM ---
Subjective Interval history: at bedside. Patient complains of chronic right shoulder pain and headache today. Her shortness of breath and cough are improving. Physical Exam Vital signs: Vital Signs 06/07/18 21:36 06/07/18 21:41 06/07/18 22:27 Temperature 98.5 F 99.2 F Pulse Rate 80 82 Respiratory Rate 18 18 Blood Pressure 177/81 H Pulse Oximetry 98 98 06/08/18 01:28 06/08/18 03:52 06/08/18 04:00 Temperature 98 F 98.1 F Pulse Rate 79 95 H 81 Respiratory Rate 18 18 Blood Pressure 173/98 H 184/78 H Pulse Oximetry 97 06/08/18 06:25 06/08/18 07:26 06/08/18 12:00 Temperature 98.4 F 98.4 F Pulse Rate 78 80 Respiratory Rate 16 16 Blood Pressure 180/75 H 169/72 H Pulse Oximetry 98 99 06/08/18 12:31 Temperature Pulse Rate 80 Respiratory Rate Blood Pressure Pulse Oximetry Intake & Output 06/07/18 06/08/18 06/08/18 18:59 06:59 18:59 Intake Total 1000 / 1000 Balance 1000 / 1000 Weight 165 lb 5.547 oz Intake: IV 1000 / 1000 NS Inj 1,000 ML @ 100 mls/hr IV 1000 / 1000 .CONT .Q10H LILLIAN Rx#:[id number] Other: # Voids 2 Date of Last Bowel Movement 06/08/18 # Bowel Movements 1 Narrative: GENERAL: Well-developed well-nourished. In no acute distress. SKIN: Warm and dry. No lesions noted. CARDIOVASCULAR: Regular rate and rhythm. No murmur appreciated. RESPIRATORY: No accessory muscle use. Clear to auscultation. Breath sounds equal bilaterally. GASTROINTESTINAL: Abdomen soft, non-tender, nondistended. Bowel sounds x4. MUSCULOSKELETAL: No obvious deformities. No clubbing or cyanosis. No edema. NEUROLOGICAL: Awake and alert. Moves upper and lower extremities spontaneously. Normal speech. PSYCHIATRIC: Appropriate mood and affect; insight and judgment appear normal. Results - Labs CBC & Chem 7: 06/07/18 22:45 06/07/18 22:45 Laboratory Results - last 24 hr 06/07/18 06/07/18 22:45 22:45 WBC 8.4 RBC 5.46 H Hgb 13.5 Hct 42.1 MCV 77.1 L MCH 24.8 L MCHC 32.2 RDW 19.1 H Plt Count 273 MPV 8.3 Neut % (Auto) 57.3 Lymph % (Auto) 29.9 [place] % (Auto) 10.4 H Eos % (Auto) 0.9 Baso % (Auto) 1.5 Neut # (Auto) 4.8 Lymph # (Auto) 2.5 [place] # (Auto) 0.9 Eos # (Auto) 0.1 Baso # (Auto) 0.1 WBC Differential . Differential Comment Auto diff final Sodium 142 Potassium 3.8 Chloride 108 H Carbon Dioxide 28.2 Anion Gap 6 BUN 13 Creatinine 1.14 H Estimated GFR 47 L Random Glucose 137 H Calcium 8.9 Troponin I 0.02 - Imaging Impressions Chest X-Ray 06/07/18 22:48 CONCLUSION: There is a new ill-defined infiltrate in the posterior medial right lung. Head CT 06/07/18 22:48 CONCLUSION: 1. No acute findings in the brain. 2. 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 . Assessment and Plan - Plan 73-year-old female with a PMH of HTN, A. fib, DM, Davon's Disease, Lupus, Rheumatoid Arthritis and h/o Seizure Disorder who was brought to the ER by for episode of "tremors" Tremors: Reported extremity tremors, has videos on his cell phone. CT Head w/ no acute findings. H/o Seizure Disorder, on Dilantin approx 10yrs ago. Check EEG. Ativan prn. Consult neurology, Dr. Lam d/w Dr. Patel, will proceed with LP, will need to hold Pradaxa for a few days prior. PNA: CXR w/ new infiltrate posterior medial right lung. Continue IV azithromycin with multiple other antibiotic allergies. DM: Sliding scale w/ Accu-cheks. A-fib: Currently NSR. Rate controlled on Cardizem. Rhythm controlled on flecainide. Pradaxa on hold for LP. Hypertension: BP elevated. Clonidine as needed for now. Consider addition of lisinopril. DVT Prophylaxis: SCD/Teds Discussed Condition With: Patient, , Dr. Lam
--- NOTE | 2018-06-08 13:46 | ECG ---
Date Performed: 06/08/2018 Time Performed: 07:34:40 PTAGE: 73 years EKG: Sinus rhythm WITH SHORT MI INTERVAL SEPTAL MYOCARDIAL INFARCTION ABNORMAL ECG Since the PREVIOUS TRACING , no significant change noted PREVIOUS TRACIN06/07/2018 23.24 DOCTOR: Karis Mccann Interpretating Date/Time 06/08/2018 13:44:27
--- NOTE | 2018-06-08 13:52 | ECG ---
Date Performed: 06/07/2018 Time Performed: 23:24:50 PTAGE: 73 years EKG: ECTOPIC ATRIAL RHYTHM WITH SHORT CA INTERVAL SEPTAL MYOCARDIAL INFARCTION ABNORMAL ECG Sinc e the PREVIOUS TRACING , no significant change noted PREVIOUS TRACIN04/25/2018 14.14 DOCTOR: Karis Mccann Interpretating Date/Time 06/10/2018 07:25:15
--- NOTE | 2018-06-08 14:20 | MB ---
cc: Meredith Patel MD,Kaylan COMBS DATE: 06/08/2018 AGE: 73. REASON FOR CONSULT: Tremors. HISTORY: This is a 73-year-old woman with history of hypertension, atrial fibrillation, diabetes, Dixon disease, lupus, rheumatoid arthritis, as well as sleep apnea, questionable compliance to CPAP. Also, questionable history of seizure, comes in for episodic tremors. She states the tremors, she is awake and alert with them. She describes them basically as a jerking movement, sounds like myoclonus. She was admitted back in April for delirium, UTI, saw Dr. Canseco who at that time possibly recommended LP. The patient was on Pradaxa, and LP was planned for outpatient. Apparently per chart notes, it states that she was seen by Dr. Gonzalez and had multiple tests done but no LP. Apparently per chart note, it states the night before she was admitted, she had involuntary movements of the left upper extremity while sleeping, and then the day of admission, bilateral upper extremities and lower extremities. She is completely awake with these movements. She states that she had something about 10 years ago where she was taking Dilantin and seems to have helped, but she has been off it for some time now. Currently, she is not having any jerky movements whatsoever. She is only complaining of being cold and found to have a pneumonia, she states, and has some coughing, dry cough. There is some remote history of polycythemia. PAST MEDICAL HISTORY: As stated. SURGICAL HISTORY: Laminectomy, appendectomy, cholecystectomy, rotator cuff, and knee replacement. HOME MEDICINES: Please refer to MAR. ALLERGIES: Please refer to MAR. PHYSICAL EXAMINATION: VITAL SIGNS: Temperature is 98.4, pulse 76, respiratory rate 16, blood pressure 180/75, saturating at 99% on room air. NECK: Supple. No bruits. HEART: Regular. NEUROLOGIC: She is awake. She is alert. She is fluent. Pupils reactive. Visual garcia full. Face symmetrical. Her tongue is midline. Motor dixon, tone is normal. There is no tremor. No fasciculations. No drift. No leg lag. Cerebellar testing is normal. No past pointing. DTRs are 1+. Toes withdraws. Gait is withheld. LABORATORY DATA: Reviewed. Her MCV is 77.1, hemoglobin 13.5, platelets are 273,000. Chemistries: Her creatinine is 1.14, GFR 47, glucose 137. Blood cultures pending. CT head showed old left occipital stroke but nothing acute. Her chest x-ray confirms new ill-defined infiltrates in the posterior right medial lung. IMPRESSION: This is a 73-year-old woman with what sounds like possible myoclonic movements, may be due to electrolyte imbalance, may be due to certainly a seizure. We will go ahead and get an EEG. Use Ativan if needed. At this point in time, she is not having any symptoms. Certainly, Dilantin can be restarted, but I would opt to hold off on that. She has what looks like a pneumonia, a new infiltrate. She is currently on vancomycin and Rocephin. Atrial fibrillation is chronic. Pradaxa has been held for LP. I am not sure at this point that we need to do an LP. I would probably defer that as an outpatient to Dr. Canseco if he still feels it is necessary. If an LP is to be done, certainly go ahead and obtain RBC, WBC, cell count, protein, glucose, differential, Gram stain, AFB, VDRL. Continue current care, and further recommendations to be made accordingly. Maintain seizure precautions. Use Ativan only if needed. MD EL Lange/edis/talia , 10:31 AM , 10:41 AM
[2018-06-08] MEDS: Insulin NovoLOG Aspart Correctional Sugar Inj SQ SCH ×2 (16:21→21:33)
[2018-06-09] MEDS ORDERED: Metoprolol Inj 5 MG/5 ML Vial IV.PUSH ONE (02:17)
[2018-06-09] MEDS ORDERED: Metoprolol Tartrate 25 MG Tablet PO ONE (02:29)
--- NOTE | 2018-06-09 02:43 | XR ---
EXAM DATE: 06/09/2018 2:38 AM EDT AGE/SEX: 73 years / Female INDICATIONS: Halicat. CLINICAL DATA: This is the patient's initial encounter. Patient reports that signs and symptoms have been present for 1 day and indicates a pain score of 0/10. MEDICAL/SURGICAL HISTORY: . Diabetes mellitus type II. . Fusion, lumbar. Shoulder surgery . COMPARISON: [facility] [place], CHEST 2V PA&LAT, 06/07/2018. . FINDINGS: A single AP view of the chest demonstrates the lungs to be symmetrically aerated without evidence of mass, infiltrate or effusion. Previously noted area of infiltrate in the medial right midlung has re solved. The cardiomediastinal contours are unremarkable. Osseous structures are intact. CONCLUSION: The lungs are clear. Electronically signed by: Siva Nugent MD 06/09/2018 2:41 AM EDT
[2018-06-09 03:05] LABS: Thyroid Stimulating Hormone 0.521 uIU/mL (0.358-3.740); Troponin I 0.03 ng/mL (0.02-0.05)
--- NOTE | 2018-06-09 03:12 | P.PNADD ---
Addendum to Inpatient Note Reason for Addendum: Additional Documentation Additional information: TINA S: Responded to page for stable tachycardia beginning at 2:30 am. Pt is a 73 y/ o F w/hx of stroke and dementia who was admitted on for pneumonia, being treated w/azithromycin. Has a hx of chronic afib controlled on Cardizem 120 mg daily and Flecainide 100 mg daily. Last dose Cardizem was yesterday morning at 9 am, Flecainide was yesterday afternoon. Takes clonidine PRN for BP at dose of 0.1 mg PO Q6H. No new medications besides antibiotics have been added to patient 's regimen. Pt is not a reliable historian. Denies sudden acute chest pain, palpitations, shortness of breath, or other pain. Later, states she had chest pressure a short time ago. O: HR 138-150, BP 114/73 (baseline 150-160s/70s-80s), pulse ox >94%, RR 16 Gen: elderly woman slightly confused but AOx3 (date, self, location) Cardio: tachycardic, irregular rate Resp: slight crackles R. lung>L. lung in lower bases, air flow equal bilaterally GI: obese, +BS, complains of tenderness 2/2 full bladder EXT: no edema A/P: 73 y/o F w/hx of chronic Afib presenting w/stable tachycardia. EKG shows Afib w/RVR w/widened QRS complexes. Spoke w/hospitalist Dr. Mayfield. Plan to transfer patient to [facility] and give IV metoprolol 5 mg. Ordered CXR, no concern for fluid overload or pneumothorax. Order cardiac enzymes,D-dimer, TSH to rule out DC,PE, and thyroid disease. Not on anticoagulation.
[2018-06-09 05:18] LABS: Baso # (Auto) 0.1 th/mm3 (0.0-0.2); Baso % (Auto) 1.1 % (0.0-2.0); Eos # (Auto) 0.1 th/mm3 (0.0-0.4); Eos % (Auto) 1.5 % (0.0-4.0); Hematocrit 42.5 % (35.0-46.0); Hemoglobin 13.5 gm/dL (11.6-15.3); Lymph # (Auto) 2.5 th/mm3 (1.0-4.8); Lymph % (Auto) 28.9 % (9.0-44.0); Mean Corpuscular HGB Conc 31.9 % (32.0-36.0); Mean Corpuscular Hemoglobin 24.9 pg (27.0-34.0); Mean Corpuscular Volume 78.1 fL (80.0-100.0); Mean Platelet Volume 8.2 fL (7.0-11.0); Mono # (Auto) 0.9 th/mm3 (0.0-0.9); Neut # (Auto) 4.9 th/mm3 (1.8-7.7); Neut % (Auto) 57.5 % (16.0-70.0); Platelet Count 295 th/mm3 (150-450); Red Blood Count 5.44 mil/mm3 (4.00-5.30); Red Cell Distribution Width 19.2 % (11.6-17.2); White Blood Count 8.6 th/mm3 (4.0-11.0)
[2018-06-09 05:42] LABS: Alanine Aminotransferase 13 U/L (10-53); Albumin 2.9 g/dL (3.4-5.0); Anion Gap 11 meq/L (5-15); Aspartate Aminotransferase 16 U/L (15-37); Blood Urea Nitrogen 9 mg/dL (7-18); Calcium 8.2 mg/dL (8.5-10.1); Carbon Dioxide 23.2 meq/L (21.0-32.0); Chloride 110 meq/L (98-107); Glomerular Filtration Rate Greater Than 89 mL/min (>89); Glucose,Random 153 mg/dL (74-106); Potassium 3.7 meq/L (3.5-5.1); Sodium 144 meq/L (136-145)
[2018-06-09 05:45] LABS: Alkaline Phosphatase 84 U/L (45-117); Total Protein 6.4 g/dL (6.4-8.2)
[2018-06-09] MEDS: Sod Chloride 0.9% Inj 1,000 ML IV.CONT SCH ×2 (06:30→17:13)
[2018-06-09] MEDS: Flecainide 100 MG Tablet PO SCH ×2 (07:48→15:38)
[2018-06-09] MEDS: Gabapentin 100 MG Capsule PO SCH ×3 (08:11→17:12)
[2018-06-09] MEDS: Senna/Docusate Sodium 8.6/50 MG Tablet PO SCH ×2 (08:11→08:21)
[2018-06-09] MEDS: dilTIAZem CD 120 MG Capsule PO SCH (08:11)
[2018-06-09] MEDS: Azithromycin Inj 500 MG in Sodium Chlor 0.9% Inj 250 ML IV.SIG SCH (08:12)
--- NOTE | 2018-06-09 08:14 | P.PNIM ---
Subjective Interval history: Patient seen and examined this morning. Complains of pain all over her body and her abdomen. A little confused with dates but awake and oriented x3. States that her reduced her steroid dose which caused her symptoms. Physical Exam Vital signs: Vital Signs 06/08/18 12:00 06/08/18 12:31 06/08/18 16:00 Temperature 98.4 F 97.8 F Pulse Rate 80 80 75 Respiratory Rate 16 16 Blood Pressure 169/72 H 151/68 H Pulse Oximetry 95 06/08/18 20:00 06/08/18 23:40 06/09/18 00:38 Temperature 98.1 F 97.4 F L Pulse Rate 84 89 82 Respiratory Rate 18 16 Blood Pressure 168/70 H 190/85 H Pulse Oximetry 97 98 06/09/18 02:35 06/09/18 04:37 Temperature Pulse Rate 131 H Respiratory Rate 18 Blood Pressure 130/53 L Pulse Oximetry 98 97 Intake & Output 06/08/18 06/09/18 06/09/18 18:59 06:59 18:59 Intake Total 1750 / 1750 1999 Balance 1750 / 1750 1999 Weight 68.5 kg Intake: IV 1250 / 1250 1999 NS Inj 1,000 ML @ 100 mls/hr IV 1000 / 1000 1999 .CONT .Q10H [facility] Rx#:[id number] Azithromycin Inj 500 MG In NS 250 / 250 Inj 250 ML @ 250 mls/hr IV.SIG Q24H [facility] Rx#:[id number] Oral 500 / 500 Other: # Voids 1 Date of Last Bowel Movement 06/09/18 # Bowel Movements 3 Results - Labs CBC & Chem 7: 06/09/18 04:46 06/09/18 04:46 Laboratory Results - last 24 hr 06/08/18 06/08/18 06/09/18 16:17 21:25 02:25 WBC RBC Hgb Hct MCV MCH MCHC RDW Plt Count MPV Neut % (Auto) Lymph % (Auto) [place] % (Auto) Eos % (Auto) Baso % (Auto) Neut # (Auto) Lymph # (Auto) [place] # (Auto) Eos # (Auto) Baso # (Auto) WBC Differential Differential Comment D-Dimer Quant (PE/DVT) Sodium Potassium Chloride Carbon Dioxide Anion Gap BUN Creatinine Estimated GFR POC Glucose 161 H 155 H Random Glucose Calcium Total Bilirubin AST ALT Alkaline Phosphatase Total Creatine Kinase 56 Troponin I 0.03 Total Protein Albumin TSH 0.521 06/09/18 06/09/18 06/09/18 04:46 04:46 04:46 WBC 8.6 RBC 5.44 H Hgb 13.5 Hct 42.5 MCV 78.1 L MCH 24.9 L MCHC 31.9 L RDW 19.2 H Plt Count 295 MPV 8.2 Neut % (Auto) 57.5 Lymph % (Auto) 28.9 [place] % (Auto) 11.0 H Eos % (Auto) 1.5 Baso % (Auto) 1.1 Neut # (Auto) 4.9 Lymph # (Auto) 2.5 [place] # (Auto) 0.9 Eos # (Auto) 0.1 Baso # (Auto) 0.1 WBC Differential . Differential Comment Auto diff final D-Dimer Quant (PE/DVT) 0.71 H Sodium 144 Potassium 3.7 Chloride 110 H Carbon Dioxide 23.2 Anion Gap 11 BUN 9 Creatinine 0.61 Estimated GFR Greater than 89 POC Glucose Random Glucose 153 H Calcium 8.2 L Total Bilirubin 0.5 AST 16 ALT 13 Alkaline Phosphatase 84 Total Creatine Kinase Troponin I Total Protein 6.4 Albumin 2.9 L TSH 06/09/18 07:27 WBC RBC Hgb Hct MCV MCH MCHC RDW Plt Count MPV Neut % (Auto) Lymph % (Auto) [place] % (Auto) Eos % (Auto) Baso % (Auto) Neut # (Auto) Lymph # (Auto) [place] # (Auto) Eos # (Auto) Baso # (Auto) WBC Differential Differential Comment D-Dimer Quant (PE/DVT) Sodium Potassium Chloride Carbon Dioxide Anion Gap BUN Creatinine Estimated GFR POC Glucose 145 H Random Glucose Calcium Total Bilirubin AST ALT Alkaline Phosphatase Total Creatine Kinase Troponin I Total Protein Albumin TSH - Imaging Impressions Chest X-Ray 06/09/18 00:00 CONCLUSION: The lungs are clear. Impressions Chest X-Ray 06/07/18 22:48 CONCLUSION: There is a new ill-defined infiltrate in the posterior medial right lung. Head CT 06/07/18 22:48 CONCLUSION: 1. No acute findings in the brain. 2. 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 Abdomen X-Ray 06/09/18 00:00 CONCLUSION: No abnormality noted to account for the patient's pain. Chest X-Ray 06/09/18 00:00 CONCLUSION: The lungs are clear. Assessment and Plan - Assessment (1) Tremors of nervous system Code(s): R25.1 - Tremor, unspecified Status: Acute Plan: Improved, none noted on exam Neurology on board EEG pending LP to be performed, holding Pradaxa Seizure precautions (2) Diarrhea Code(s): R19.7 - Diarrhea, unspecified Status: Acute Plan: -Loose diarrheal stools, patient incontinent -C Diff negative -Imodium 4mg now, then after diarrhea as needed -Probiotics TID (3) Pneumonia Code(s): J18.9 - Pneumonia, unspecified organism Status: Resolved Plan: -Resolved on CXR from today -Asymptomatic, afebrile, not complaining of SOB -Received 2 doses of Azithromycin 500mg IV -Continue Azithromycin 500 mg for 1 more day (4) DM (diabetes mellitus) Code(s): E11.9 - Type 2 diabetes mellitus without complications Status: Chronic Plan: A1C pending -Continue SSI - none required in the past 24 hrs (5) Afib Code(s): I48.91 - Unspecified atrial fibrillation Status: Chronic Plan: -Halicat called overnight for stable tachycardia -EKG showed Afib w rvr -Received Metoprolol IV -Back to regular sinus rythmn with HR in the 60s to 70s -Continue Cardizem 120mg ER PO daily -Patient on telemetry (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 Status: Acute Plan: -Continue hydrocortisone 25 mg PO daily and 5mg PO HS -Continue Flecainide 100mg PO daily (7) Dementia Code(s): F03.90 - Unspecified dementia without behavioral disturbance Status: Acute Plan: Continue Memantine and Namenda (8) Chronic pain Code(s): G89.29 - Other chronic pain Status: Acute Plan: Complains of back and hip pain Continue Roxicodone 5mg PO daily (3) Pneumonia Qualifiers: Pneumonia type: due to unspecified organism Laterality: unspecified laterality Lung location: unspecified part of lung Qualified Code(s): J18.9 - Pneumonia, unspecified organism (4) DM (diabetes mellitus) Qualifiers: Diabetes mellitus type: type 2 Diabetes mellitus half-way insulin use: without retail parts professional use Diabetes mellitus complication status: without complication Qualified Code(s): E11.9 - Type 2 diabetes mellitus without complications
[2018-06-09] MEDS: Insulin NovoLOG Aspart Correctional Sugar Inj SQ SCH ×4 (08:21→21:56)
--- NOTE | 2018-06-09 08:42 | ECG ---
Date Performed: 06/09/2018 Time Performed: 01:54:14 PTAGE: 73 years EKG: ATRIAL FIBRILLATION WITH RAPID VENTRICULAR RESPONSE MARKED LEFT AXIS DEVIATION LEFT BUNDLE BRANCH BLOCK ABNORMAL ECG Compared to PREVIOUS TRACING , -new LBBB -new AF with RVR DOCTOR: Karis Mccann Interpretating Date/Time 06/09/2018 08:41:45
[2018-06-09] MEDS ORDERED: Azithromycin Inj 500 MG in Sodium Chlor 0.9% Inj 250 ML IV.SIG ONE (08:56)
[2018-06-09] MEDS ORDERED: Azithromycin 250 MG Tablet PO SCH (09:00)
--- NOTE | 2018-06-09 10:39 | XR ---
EXAM DATE: 06/09/2018 10:33 AM EDT AGE/SEX: 73 years / Female INDICATIONS: Abdominal pain. CLINICAL DATA: This is the patient's initial encounter. Patient reports that signs and symptoms have been present for 2 weeks and indicates a pain score of 5/10. MEDICAL/SURGICAL HISTORY: None. Appendectomy. COMPARISON: No prior exams available for comparison. FINDINGS: The abdominal bowel gas pattern is normal. No abnormal masses, calcifications, or organomegaly is s een. Osseous structures demonstrate extensive fusion within the lumbar spine. CONCLUSION: No abnormality noted to account for the patient's pain. Electronically signed by: Yari Arriaza MD 06/09/2018 10:37 AM EDT
[2018-06-09] MEDS: Hydrocortisone 10 MG Tablet PO SCH ×2 (11:06→22:03)
[2018-06-09 13:00] LABS: Bilirubin,Urine Negative (Negative); Clarity,Urine Clear (Clear); Color,Urine Yellow (Yellw/Straw); Glucose,Urine (UA) Negative (Negative); Nitrite,Urine Negative (Negative); Specific Gravity,Urine 1.006 (1.002-1.035)
[2018-06-09 13:01] LABS: Leukocyte Esterase,Urine Negative (Negative); Mucus,Urine Few /lpf (Occasional); Squamous Epithelial Cell,Urine 2 /hpf (0-5)
[2018-06-09] MEDS ORDERED: Loperamide 2 MG Capsule PO ONE (13:20)
[2018-06-09] MEDS ORDERED: Loperamide 2 MG Capsule PO PRN (17:00)
[2018-06-10] MEDS: Flecainide 100 MG Tablet PO SCH ×2 (01:38→15:40)
[2018-06-10] MEDS: Sod Chloride 0.9% Inj 1,000 ML IV.CONT SCH (01:43)
[2018-06-10 08:07] LABS: Baso % (Auto) 0.7 % (0.0-2.0); Eos # (Auto) 0.1 th/mm3 (0.0-0.4); Eos % (Auto) 1.8 % (0.0-4.0); Hematocrit 37.7 % (35.0-46.0); Hemoglobin 12.7 gm/dL (11.6-15.3); Lymph # (Auto) 2.3 th/mm3 (1.0-4.8); Lymph % (Auto) 31.5 % (9.0-44.0); Mean Corpuscular HGB Conc 33.6 % (32.0-36.0); Mean Corpuscular Hemoglobin 25.7 pg (27.0-34.0); Mean Corpuscular Volume 76.6 fL (80.0-100.0); Mean Platelet Volume 7.8 fL (7.0-11.0); Mono # (Auto) 0.7 th/mm3 (0.0-0.9); Mono % (Auto) 10.2 % (0.0-8.0); Neut % (Auto) 55.8 % (16.0-70.0); Platelet Count 258 th/mm3 (150-450); Red Blood Count 4.93 mil/mm3 (4.00-5.30); White Blood Count 7.2 th/mm3 (4.0-11.0)
[2018-06-10 08:25] LABS: Anion Gap 6 meq/L (5-15); Aspartate Aminotransferase 16 U/L (15-37); Blood Urea Nitrogen 7 mg/dL (7-18); Calcium 8.4 mg/dL (8.5-10.1); Carbon Dioxide 27.7 meq/L (21.0-32.0); Chloride 110 meq/L (98-107); Glomerular Filtration Rate Greater Than 89 mL/min (>89); Glucose,Random 132 mg/dL (74-106); Magnesium 1.9 mg/dL (1.5-2.5); Potassium 3.6 meq/L (3.5-5.1); Sodium 144 meq/L (136-145)
[2018-06-10 08:26] LABS: Alanine Aminotransferase 13 U/L (10-53); Phosphorus 2.6 mg/dL (2.5-4.9)
[2018-06-10 08:35] LABS: Alkaline Phosphatase 78 U/L (45-117); Thyroid Stimulating Hormone 0.749 uIU/mL (0.358-3.740); Total Protein 6.1 g/dL (6.4-8.2)
[2018-06-10] MEDS: dilTIAZem CD 120 MG Capsule PO SCH (09:16)
[2018-06-10] MEDS: Insulin NovoLOG Aspart Correctional Sugar Inj SQ SCH ×4 (09:16→22:22)
[2018-06-10] MEDS: Gabapentin 100 MG Capsule PO SCH ×3 (09:16→17:42)
[2018-06-10] MEDS: Azithromycin 250 MG Tablet PO SCH (09:17)
[2018-06-10] MEDS: Hydrocortisone 10 MG Tablet PO SCH ×2 (09:18→21:57)
--- NOTE | 2018-06-10 09:23 | MG ---
cc: Meredith Patel MD EEG NUMBER [id number] REFERRING PHYSICIAN: Pepper Waters With photic stimulation. Awake, drowsy, asleep study. CT shows atrophy. Last EEG in 2018 I do not have the report on. Admitted with tremors, possible myoclonus. DESCRIPTION OF RECORD: The patient has a background of 8 Hz, 20-50 microvolts. A lot of eye movement. Overall, fairly symmetrical. Some twitching of the right arm was noted by the microbiology lab technician. There is no correlation with any epileptic activity. A lot of snoring, a lot of background artifact. Photic stimulation with a driving response. More artifact though. No evidence of any epileptiform features. IMPRESSION: Overall, normal appearing electroencephalogram. Clinical correlation. Meredith Patel MD DF/ , 05:32 PM , 05:37 PM
--- NOTE | 2018-06-10 15:25 | P.PNIM ---
Subjective Interval history: This is a 73-year-old female with a PMH of HTN, A. 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 Pt w/ recent admit 04/25-04/30/18 for Delirium/UTI, s/p eval by Dr. Canseco w/ recommendation for LP, however pt on Pradaxa and LP deferred w/ plans for outpatient eval. Per , pt was seen by Dr. Gonzalez for their first visit and had multiple lab tests done, but no LP. Last night, pt noted to have involuntary movements of her left arm while sleeping. Today, notes pt w/ bilateral upper extremity and bilateral lower extremity tremors- has videos of these events on his cell phone. Pt believes they are seizures, however states she hasn't had a seizure in 10yrs. History difficult as pt and give conflicting information. On arrival, BP 177/81, HR 80, O2 sat 98% on RA, Afebrile. CBC essentially unremarkable. Chemistry essentially unremarkable. CT Head with no acute findings. CXR with infiltrate posterior medial right lung. S/p Rocephin/Vanc in ER 8-4 at bedside. Patient complains of chronic right shoulder pain and headache today. Her shortness of breath and cough are improving. 8-5 Patient seen and examined this morning. Complains of pain all over her body and her abdomen. A little confused with dates but awake and oriented x3. States that her reduced her steroid dose which caused her symptoms. 8-6 less confusion HAS FAMILY WITH HER ON WEEKDAY BUT ONLY ON WEEKENDS DW RN AND PT AND CASE MANAGEMENT MAY NEEDS SNF VS HHC VS PENITENT[place] AT [place] Physical Exam Vital signs: Vital Signs 06/09/18 16:00 06/09/18 17:00 06/09/18 18:00 Temperature 98.4 F Pulse Rate 68 75 82 Respiratory Rate 18 Blood Pressure 136/56 L Pulse Oximetry 94 L 06/09/18 19:00 06/09/18 20:00 06/09/18 21:00 Temperature Pulse Rate 75 74 80 Respiratory Rate 16 Blood Pressure 127/62 Pulse Oximetry 96 06/09/18 22:00 06/09/18 23:00 08/06/18 00:00 Temperature Pulse Rate 74 68 71 Respiratory Rate 18 Blood Pressure 126/56 L Pulse Oximetry 94 L 06/10/18 01:00 06/10/18 01:37 06/10/18 02:00 Temperature Pulse Rate 80 72 Respiratory Rate 18 Blood Pressure Pulse Oximetry 06/10/18 04:00 06/10/18 05:00 06/10/18 06:00 Temperature Pulse Rate 74 80 73 Respiratory Rate 18 Blood Pressure Pulse Oximetry 94 L 06/10/18 06:20 06/10/18 07:00 06/10/18 08:00 Temperature 98.2 F Pulse Rate 74 74 Respiratory Rate 18 Blood Pressure 122/52 L 155/73 H Pulse Oximetry 97 06/10/18 09:00 06/10/18 10:00 06/10/18 11:00 Temperature Pulse Rate 83 84 78 Respiratory Rate Blood Pressure Pulse Oximetry 06/10/18 12:00 Temperature 97.7 F Pulse Rate 77 Respiratory Rate 18 Blood Pressure 153/58 H Pulse Oximetry 100 Intake & Output 06/09/18 06/10/18 06/10/18 18:59 06:59 18:59 Intake Total 1730 / 1730 840 / 840 Output Total 720 / 720 1000 / 1000 Balance 1010 / 1010 -160 / -160 Weight 68.5 kg Intake: IV 1250 / 1250 600 / 600 NS Inj 1,000 ML @ 100 mls/hr IV 1000 / 1000 600 / 600 .CONT .Q10H [facility] Rx#:[id number] Azithromycin Inj 500 MG In NS 250 / 250 Inj 250 ML @ 250 mls/hr IV.SIG Q24H [facility] Rx#:[id number] Oral 480 / 480 240 / 240 Output: Urine 720 / 720 1000 / 1000 Other: Date of Last Bowel Movement 06/09/18 06/09/18 06/09/18 # Bowel Movements 3 Narrative: GENERAL: Well-developed well-nourished. In no acute distress. SKIN: Warm and dry. No lesions noted. CARDIOVASCULAR: Regular rate and rhythm. No murmur appreciated. RESPIRATORY: No accessory muscle use. Clear to auscultation. Breath sounds equal bilaterally. GASTROINTESTINAL: Abdomen soft, non-tender, nondistended. Bowel sounds x4. MUSCULOSKELETAL: No obvious deformities. No clubbing or cyanosis. No edema. NEUROLOGICAL: Awake and alert. Moves upper and lower extremities spontaneously. Normal speech. PSYCHIATRIC: Appropriate mood and affect; insight and judgment appear normal. Results - Labs CBC & Chem 7: 06/10/18 07:47 06/10/18 07:47 Laboratory Results - last 24 hr 06/09/18 06/09/18 06/10/18 17:10 21:54 07:47 WBC RBC Hgb Hct MCV MCH MCHC RDW Plt Count MPV Neut % (Auto) Lymph % (Auto) [place] % (Auto) Eos % (Auto) Baso % (Auto) Neut # (Auto) Lymph # (Auto) [place] # (Auto) Eos # (Auto) Baso # (Auto) WBC Differential Differential Comment Sodium 144 Potassium 3.6 Chloride 110 H Carbon Dioxide 27.7 Anion Gap 6 BUN 7 Creatinine 0.56 Estimated GFR Greater than 89 POC Glucose 133 H 113 H Random Glucose 132 H Calcium 8.4 L Phosphorus 2.6 Magnesium 1.9 Total Bilirubin 0.5 AST 16 ALT 13 Alkaline Phosphatase 78 Total Protein 6.1 L Albumin 3.0 L TSH 0.749 Free T4 1.10 06/10/18 06/10/18 06/10/18 07:47 08:14 11:59 WBC 7.2 RBC 4.93 Hgb 12.7 Hct 37.7 MCV 76.6 L MCH 25.7 L MCHC 33.6 RDW 19.0 H Plt Count 258 MPV 7.8 Neut % (Auto) 55.8 Lymph % (Auto) 31.5 [place] % (Auto) 10.2 H Eos % (Auto) 1.8 Baso % (Auto) 0.7 Neut # (Auto) 4.0 Lymph # (Auto) 2.3 [place] # (Auto) 0.7 Eos # (Auto) 0.1 Baso # (Auto) 0.0 WBC Differential . Differential Comment Auto diff final Sodium Potassium Chloride Carbon Dioxide Anion Gap BUN Creatinine Estimated GFR POC Glucose 123 H 196 H Random Glucose Calcium Phosphorus Magnesium Total Bilirubin AST ALT Alkaline Phosphatase Total Protein Albumin TSH Free T4 Microbiology 06/08/18 00:05 Blood - Peripheral Aerobic Blood Culture - Preliminary No growth in 2 days 06/08/18 00:05 Blood - Peripheral Anaerobic Blood Culture - Preliminary No growth in 2 days - Imaging Chest X-Ray 06/07/18 22:48 CONCLUSION: There is a new ill-defined infiltrate in the posterior medial right lung. Head CT 06/07/18 22:48 CONCLUSION: 1. No acute findings in the brain. 2. 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 . Abdomen X-Ray 06/09/18 00:00 CONCLUSION: No abnormality noted to account for the patient's pain. Chest X-Ray 06/09/18 00:00 CONCLUSION: The lungs are clear. Assessment and Plan - Assessment (1) Tremors of nervous system Code(s): R25.1 - Tremor, unspecified Status: Acute (2) PNA (pneumonia) Code(s): J18.9 - Pneumonia, unspecified organism Status: Acute (3) DM (diabetes mellitus) Code(s): E11.9 - Type 2 diabetes mellitus without complications Status: Chronic (4) Afib Code(s): I48.91 - Unspecified atrial fibrillation Status: Chronic - Plan 73-year-old female with a PMH of HTN, A. 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 CT Head w/ no acute findings. H/o Seizure Disorder, on Dilantin approx 10yrs ago. Check EEG. Ativan prn. Consult neurology, Dr. Lam d/w Dr. Medrano, will proceed with LP, will need to hold Pradaxa for a few days prior. - DR MEDRANO DOES NOT WANT LP WILL RESTART PRADAXA PNA: CXR w/ new infiltrate posterior medial right lung. Continue IV azithromycin with multiple other antibiotic allergies. DM: Sliding scale w/ Accu-cheks. A-fib: Currently NSR. Rate controlled on Cardizem. Rhythm controlled on flecainide. Pradaxa WILL BE RESTARTED NO LP SCHEDULED PER CHART REVIEW Hypertension: BP elevated. Clonidine as needed for now. Consider addition of lisinopril. DVT Prophylaxis: SCD/Teds MAY NEED PLACEMENT VS HHC VS SNF HAS DIFFICULTY OVER WEEKEND HAS NIECE DURING TO WEEK TO HELP OUT Code Status: FULL CODE Discussed Condition With: RN AND PT AND FAMILY Discharge Planning: PENDING IMPROVEMENT (3) DM (diabetes mellitus) Qualifiers: Diabetes mellitus type: type 2 Diabetes mellitus correction insulin use: without regional intermodal truck driver use Diabetes mellitus complication status: without complication Qualified Code(s): E11.9 - Type 2 diabetes mellitus without complications
[2018-06-10 16:21] LABS: Hemoglobin A1c 6.9 % (4.3-6.0)
[2018-06-10 16:26] LABS: Hemoglobin A1c 6.8 % (4.3-6.0)
[2018-06-10] MEDS ORDERED: Metoprolol Inj 5 MG/5 ML Vial IV.PUSH ONE ×2 (21:37→23:56)
[2018-06-10] MEDS ORDERED: Metoprolol Inj 5 MG/5 ML Vial ONE (21:38)
[2018-06-10] MEDS ORDERED: Metoprolol Tartrate 25 MG Tablet PO ONE ×2 (22:39→23:57)
[2018-06-11 01:53] LABS: Calcium 9.2 mg/dL (8.5-10.1); Carbon Dioxide 26.5 meq/L (21.0-32.0); Magnesium 1.9 mg/dL (1.5-2.5); Potassium 4.2 meq/L (3.5-5.1)
[2018-06-11] MEDS: Flecainide 100 MG Tablet PO SCH ×2 (03:28→15:00)
[2018-06-11] MEDS: Insulin NovoLOG Aspart Correctional Sugar Inj SQ SCH ×3 (08:35→17:24)
[2018-06-11 09:15] LABS: Baso # (Auto) 0.1 th/mm3 (0.0-0.2); Baso % (Auto) 0.8 % (0.0-2.0); Eos # (Auto) 0.1 th/mm3 (0.0-0.4); Eos % (Auto) 1.8 % (0.0-4.0); Hematocrit 42.9 % (35.0-46.0); Hemoglobin 13.4 gm/dL (11.6-15.3); Lymph # (Auto) 2.7 th/mm3 (1.0-4.8); Lymph % (Auto) 35.5 % (9.0-44.0); Mean Corpuscular HGB Conc 31.3 % (32.0-36.0); Mean Corpuscular Hemoglobin 24.4 pg (27.0-34.0); Mean Corpuscular Volume 77.7 fL (80.0-100.0); Mean Platelet Volume 7.9 fL (7.0-11.0); Mono # (Auto) 0.9 th/mm3 (0.0-0.9); Neut # (Auto) 3.8 th/mm3 (1.8-7.7); Neut % (Auto) 49.9 % (16.0-70.0); Platelet Count 280 th/mm3 (150-450); Red Blood Count 5.52 mil/mm3 (4.00-5.30); Red Cell Distribution Width 19.4 % (11.6-17.2); White Blood Count 7.7 th/mm3 (4.0-11.0)
[2018-06-11] MEDS: Gabapentin 100 MG Capsule PO SCH ×3 (09:52→17:23)
[2018-06-11] MEDS: dilTIAZem CD 120 MG Capsule PO SCH (09:53)
[2018-06-11] MEDS: Azithromycin 250 MG Tablet PO SCH (09:53)
[2018-06-11 09:54] LABS: Albumin 2.9 g/dL (3.4-5.0); Anion Gap 7 meq/L (5-15); Aspartate Aminotransferase 18 U/L (15-37); Blood Urea Nitrogen 12 mg/dL (7-18); Carbon Dioxide 28.1 meq/L (21.0-32.0); Chloride 108 meq/L (98-107); Glomerular Filtration Rate 82 mL/min (>89); Glucose,Random 154 mg/dL (74-106); Magnesium 1.9 mg/dL (1.5-2.5); Potassium 3.9 meq/L (3.5-5.1); Sodium 143 meq/L (136-145)
[2018-06-11] MEDS: Hydrocortisone 10 MG Tablet PO SCH ×2 (09:54→21:07)
[2018-06-11 09:55] LABS: Alanine Aminotransferase 14 U/L (10-53)
[2018-06-11 09:58] LABS: Alkaline Phosphatase 77 U/L (45-117); Total Protein 6.4 g/dL (6.4-8.2)
[2018-06-11] MEDS: Sod Chloride 0.9% Inj 1,000 ML IV.CONT SCH (12:34)
--- NOTE | 2018-06-11 17:47 | P.PNIM ---
Subjective Interval history: This is a 73-year-old female with a PMH of HTN, A. fib, DM, Rigby's Disease, Lupus, Rheumatoid Arthritis and h/o Seizure Disorder who was brought to the ER by for episode of "tremors". Pt w/ recent admit 04/25-04/30/18 for Delirium/UTI, s/p eval by Dr. Canseco w/ recommendation for LP, however pt on Pradaxa and LP deferred w/ plans for outpatient eval. Per , pt was seen by Dr. Gonzalez for their first visit and had multiple lab tests done, but no LP. Last night, pt noted to have involuntary movements of her left arm while sleeping. Today, notes pt w/ bilateral upper extremity and bilateral lower extremity tremors- has videos of these events on his cell phone. Pt believes they are seizures, however states she hasn't had a seizure in 10yrs. History difficult as pt and give conflicting information. On arrival, BP 177/81, HR 80, O2 sat 98% on RA, Afebrile. CBC essentially unremarkable. Chemistry essentially unremarkable. CT Head with no acute findings. CXR with infiltrate posterior medial right lung. S/p Rocephin/Vanc in ER 8-4 at bedside. Patient complains of chronic right shoulder pain and headache today. Her shortness of breath and cough are improving. 8-5 Patient seen and examined this morning. Complains of pain all over her body and her abdomen. A little confused with dates but awake and oriented x3. States that her reduced her steroid dose which caused her symptoms. 8-6 less confusion HAS FAMILY WITH HER ON WEEKDAY BUT ONLY ON WEEKENDS DW RN AND PT AND CASE MANAGEMENT MAY NEEDS SNF VS HHC VS INTERMEDIATE AT [place] 06/11. Patient says she is feeling all right. Would like to go home. Denies any chest pain or shortness of breath. Denies nausea vomiting. Says she will have 24-hour home care by family. Nursing reports one half hours of A. fib RVR overnight, in addition to episode on 06/09. Physical Exam Vital signs: Vital Signs 06/10/18 18:00 06/10/18 19:00 06/10/18 20:00 Temperature Pulse Rate 93 H 75 78 Respiratory Rate Blood Pressure Pulse Oximetry 06/10/18 21:00 06/10/18 22:00 06/10/18 22:01 Temperature 97.7 F Pulse Rate 128 H 114 H 112 H Respiratory Rate 18 Blood Pressure 125/60 Pulse Oximetry 98 06/10/18 23:00 06/11/18 00:00 06/11/18 01:00 Temperature 97.8 F Pulse Rate 125 H 128 H 60 Respiratory Rate 18 Blood Pressure 133/57 L Pulse Oximetry 96 06/11/18 02:00 06/11/18 03:00 06/11/18 04:00 Temperature Pulse Rate 61 61 57 L Respiratory Rate Blood Pressure Pulse Oximetry 06/11/18 04:13 06/11/18 05:00 06/11/18 06:00 Temperature 97.6 F Pulse Rate 61 58 L 59 L Respiratory Rate 17 Blood Pressure 133/76 Pulse Oximetry 96 06/11/18 07:00 06/11/18 08:00 06/11/18 09:00 Temperature 98.1 F Pulse Rate 55 L 56 L 56 L Respiratory Rate 20 Blood Pressure 145/62 H Pulse Oximetry 96 06/11/18 10:00 06/11/18 11:00 06/11/18 12:00 Temperature 98.0 F Pulse Rate 58 L 60 60 Respiratory Rate 16 Blood Pressure 146/59 H Pulse Oximetry 95 06/11/18 13:00 06/11/18 14:00 06/11/18 15:00 Temperature 98.0 F Pulse Rate 62 68 64 Respiratory Rate 20 Blood Pressure 121/46 L Pulse Oximetry 100 06/11/18 16:00 Temperature Pulse Rate 60 Respiratory Rate Blood Pressure Pulse Oximetry Intake & Output 06/10/18 06/11/18 06/11/18 18:59 06:59 18:59 Intake Total 360 / 360 Output Total 900 / 900 Balance -540 / -540 Weight 68.2 kg Intake: Oral 360 / 360 Output: Urine 900 / 900 Other: Date of Last Bowel Movement 06/09/18 Narrative: GENERAL: Patient sitting up in bed. Appears comfortable. SKIN: Warm and dry. HEAD: Normocephalic. EYES: No scleral icterus. No injection or drainage. NECK: Supple, trachea midline. No JVD. CARDIOVASCULAR: Regular rate and rhythm without murmurs, gallops, or rubs. RESPIRATORY: Breath sounds equal bilaterally. No accessory muscle use. GASTROINTESTINAL: Abdomen soft, non-tender, nondistended. MUSCULOSKELETAL: No cyanosis, or edema. BACK: Nontender without obvious deformity. No CVA tenderness. Results - Labs CBC & Chem 7: 06/11/18 09:00 06/11/18 09:00 Laboratory Results - last 24 hr 06/09/18 06/10/18 06/10/18 04:46 07:47 21:38 WBC RBC Hgb Hct MCV MCH MCHC RDW Plt Count MPV Neut % (Auto) Lymph % (Auto) [place] % (Auto) Eos % (Auto) Baso % (Auto) Neut # (Auto) Lymph # (Auto) [place] # (Auto) Eos # (Auto) Baso # (Auto) WBC Differential Differential Comment Sodium Potassium Chloride Carbon Dioxide Anion Gap BUN Creatinine Estimated GFR POC Glucose 126 H Random Glucose Hemoglobin A1c 6.9 H 6.8 H Calcium Phosphorus Magnesium Total Bilirubin AST ALT Alkaline Phosphatase Total Protein Albumin 06/11/18 06/11/18 06/11/18 00:40 08:17 09:00 WBC 7.7 RBC 5.52 H Hgb 13.4 Hct 42.9 MCV 77.7 L MCH 24.4 L MCHC 31.3 L RDW 19.4 H Plt Count 280 MPV 7.9 Neut % (Auto) 49.9 Lymph % (Auto) 35.5 [place] % (Auto) 12.0 H Eos % (Auto) 1.8 Baso % (Auto) 0.8 Neut # (Auto) 3.8 Lymph # (Auto) 2.7 [place] # (Auto) 0.9 Eos # (Auto) 0.1 Baso # (Auto) 0.1 WBC Differential . Differential Comment Auto diff final Sodium 141 Potassium 4.2 Chloride 108 H Carbon Dioxide 26.5 Anion Gap 7 BUN 12 Creatinine 0.73 Estimated GFR 78 L POC Glucose 147 H Random Glucose 195 H Hemoglobin A1c Calcium 9.2 D Phosphorus Magnesium 1.9 Total Bilirubin AST ALT Alkaline Phosphatase Total Protein Albumin 06/11/18 06/11/18 06/11/18 09:00 12:00 17:06 WBC RBC Hgb Hct MCV MCH MCHC RDW Plt Count MPV Neut % (Auto) Lymph % (Auto) [place] % (Auto) Eos % (Auto) Baso % (Auto) Neut # (Auto) Lymph # (Auto) [place] # (Auto) Eos # (Auto) Baso # (Auto) WBC Differential Differential Comment Sodium 143 Potassium 3.9 Chloride 108 H Carbon Dioxide 28.1 Anion Gap 7 BUN 12 Creatinine 0.70 Estimated GFR 82 L POC Glucose 179 H 211 H Random Glucose 154 H Hemoglobin A1c Calcium 9.0 Phosphorus 4.0 D Magnesium 1.9 Total Bilirubin 0.5 AST 18 ALT 14 Alkaline Phosphatase 77 Total Protein 6.4 Albumin 2.9 L Microbiology 06/08/18 00:05 Blood - Peripheral Aerobic Blood Culture - Preliminary No growth in 3 days 06/08/18 00:05 Blood - Peripheral Anaerobic Blood Culture - Preliminary No growth in 3 days Assessment and Plan - Assessment (1) Tremors of nervous system Code(s): R25.1 - Tremor, unspecified Status: Acute (2) PNA (pneumonia) Code(s): J18.9 - Pneumonia, unspecified organism Status: Acute (3) DM (diabetes mellitus) Code(s): E11.9 - Type 2 diabetes mellitus without complications Status: Chronic (4) Afib Code(s): I48.91 - Unspecified atrial fibrillation Status: Chronic - Plan 73-year-old female with a PMH of HTN, A. fib, DM, Rigby's Disease, Lupus, Rheumatoid Arthritis and h/o Seizure Disorder who was brought to the ER by for episode of "tremors" //Tremors: Reported extremity tremors, has videos on his cell phone. CT Head w/ no acute findings. H/o Seizure Disorder, on Dilantin approx 10yrs ago. Check EEG. Ativan prn. Consult neurology, Dr. Lam d/w Dr. Medrano, will proceed with LP, will need to hold Pradaxa for a few days prior. - DR MEDRANO DOES NOT WANT LP WILL RESTART PRADAXA //PNA: CXR w/ new infiltrate posterior medial right lung. Continue IV azithromycin with multiple other antibiotic allergies. = Continue antibiotics. //DM: Sliding scale w/ Accu-cheks. //A-fib: Currently NSR. Rate controlled on Cardizem. Rhythm controlled on flecainide. Pradaxa WILL BE RESTARTED NO LP SCHEDULED PER CHART REVIEW = Had episode of atrial fibrillation with RVR on 06/09. Continues on Cardizem 120 mg ER p.o. daily, flecainide. Will check TSH. = Due to QTC of 505, will discontinue azithromycin. Consult Dr. Blankenship. //Bilateral lower extremity edema. Likely secondary to IV fluids. Will check ultrasound bilateral lower extremities however. Discontinue IV fluid //Hypothyroidism. Chronic. Continue home meds. //Hypertension: BP elevated. Clonidine as needed for now. Consider addition of lisinopril. //DVT Prophylaxis: SCD/Teds Discharge Planning: Pending cardiology consult 06/11 hopefully patient can go home tomorrow. Discussed with family and patient today. (3) DM (diabetes mellitus) Qualifiers: Diabetes mellitus type: type 2 Diabetes mellitus manager intermediate insulin use: without manager intermediate use Diabetes mellitus complication status: without complication Qualified Code(s): E11.9 - Type 2 diabetes mellitus without complications
--- NOTE | 2018-06-11 23:32 | US ---
EXAM DATE: 06/11/2018 11:28 PM EDT AGE/SEX: 73 years / Female INDICATIONS: Edema. CLINICAL DATA: This is the patient's initial encounter. Patient reports that signs and symptoms have been present for 1 day and indicates a pain score of 1/10. MEDICAL/SURGICAL HISTORY: . Rheumatoid arthritis. Fibromyalgia. Davon's disease. Adrenal insu fficiency. Appendectomy. Cholecystectomy. Laminectomy. Total knee replacement. Rotator cuff surgery . COMPARISON: POI, US LEG VENOUS DOPPLER, RIGHT, 01/31/2016. . TECHNIQUE: Venous ultrasound of both lower extremities was performed from the inguinal ligament to t he proximal calf. Real-time, color Doppler and spectral tracing, compression and augmentation techni ques were used. FINDINGS: Right Leg: Normal compression of the deep venous system from the inguinal region to the proximal hermilo f. No echogenic clot is seen. Normal response of the venous system to augmentation and respiration. Left Leg: Normal compression of the deep venous system from the inguinal region to the proximal calf . No echogenic clot is seen. Normal response of the venous system to augmentation and respiration. Other: A 4.5 x 3.5 x 2.2 cm complex fluid collection in the popliteal fossa on the left identified c haracteristic of a Marmolejo's cyst. CONCLUSION: 1. Left popliteal fossa Marmolejo's cyst. 2. No evidence for DVT. Electronically signed by: Vitaliy Dubon MD 06/11/2018 11:31 PM EDT
[2018-06-12 01:04] VITALS: RESP 16
[2018-06-12] MEDS: Flecainide 100 MG Tablet PO SCH (08:11)
[2018-06-12] MEDS: Insulin NovoLOG Aspart Correctional Sugar Inj SQ SCH ×2 (08:12→08:13)
[2018-06-12] MEDS: Sod Chloride 0.9% Inj 1,000 ML IV.CONT SCH ×2 (08:14→08:15)
[2018-06-12] MEDS ORDERED: Flecainide 100 MG Tablet PO SCH (09:10)
[2018-06-12] MEDS: Gabapentin 100 MG Capsule PO SCH (09:14)
[2018-06-12] MEDS: Hydrocortisone 10 MG Tablet PO SCH (09:15)
[2018-06-12] MEDS: dilTIAZem CD 120 MG Capsule PO SCH (09:15)
--- NOTE | 2018-06-12 09:51 | P.DCO ---
- Physical Therapy Order: Evaluate and treat - Home Health Nursing Order: Nursing assessment with vital signs Instructions: Home health nurse for medication management. - Case Management Consult Yes - Certification I have seen patient Eliza Adkins on 06/12/18. My clinical findings support the need for the requested home health care services because: Limited mobility due to disease progression I certify that my clinical findings support that this patient is homebound because: Unsafe to leave home unassisted
--- NOTE | 2018-06-12 09:55 | P.PNIM ---
Subjective Interval history: This is a 73-year-old female with a PMH of HTN, A. fib, DM, [place]'s Disease, Lupus, Rheumatoid Arthritis and h/o Seizure Disorder who was brought to the ER by for episode of "tremors". Pt w/ recent admit 04/25-04/30/18 for Delirium/UTI, s/p eval by Dr. Canseco w/ recommendation for LP, however pt on Pradaxa and LP deferred w/ plans for outpatient eval. Per , pt was seen by Dr. Gonzalez for their first visit and had multiple lab tests done, but no LP. Last night, pt noted to have involuntary movements of her left arm while sleeping. Today, notes pt w/ bilateral upper extremity and bilateral lower extremity tremors- has videos of these events on his cell phone. Pt believes they are seizures, however states she hasn't had a seizure in 10yrs. History difficult as pt and give conflicting information. On arrival, BP 177/81, HR 80, O2 sat 98% on RA, Afebrile. CBC essentially unremarkable. Chemistry essentially unremarkable. CT Head with no acute findings. CXR with infiltrate posterior medial right lung. S/p Rocephin/Vanc in ER 8-4 at bedside. Patient complains of chronic right shoulder pain and headache today. Her shortness of breath and cough are improving. 8-5 Patient seen and examined this morning. Complains of pain all over her body and her abdomen. A little confused with dates but awake and oriented x3. States that her reduced her steroid dose which caused her symptoms. 8-6 less confusion HAS FAMILY WITH HER ON WEEKDAY BUT ONLY ON WEEKENDS DW RN AND PT AND CASE MANAGEMENT MAY NEEDS SNF VS HHC VS SENIOR LIVING AT [place] 06/11. Patient says she is feeling all right. Would like to go home. Denies any chest pain or shortness of breath. Denies nausea vomiting. Says she will have 24-hour home care by family. Nursing reports one half hours of A. fib RVR overnight, in addition to episode on 06/09. 06/12. Patient says she is feeling well. Denies any chest pain shortness of breath. Denies nausea or vomiting. Feels like going home. Physical Exam Vital signs: Vital Signs 06/11/18 10:00 06/11/18 11:00 06/11/18 12:00 Temperature 98.0 F Pulse Rate 58 L 60 60 Respiratory Rate 16 Blood Pressure 146/59 H Pulse Oximetry 95 06/11/18 13:00 06/11/18 14:00 06/11/18 15:00 Temperature 98.0 F Pulse Rate 62 68 64 Respiratory Rate 20 Blood Pressure 121/46 L Pulse Oximetry 100 06/11/18 16:00 06/11/18 17:00 06/11/18 18:00 Temperature Pulse Rate 60 62 62 Respiratory Rate Blood Pressure Pulse Oximetry 06/11/18 19:00 06/11/18 20:00 06/11/18 21:00 Temperature 98.2 F Pulse Rate 60 66 66 Respiratory Rate 16 Blood Pressure 139/66 Pulse Oximetry 93 L 06/11/18 22:00 06/11/18 23:00 06/12/18 00:00 Temperature 98.6 F Pulse Rate 74 64 64 Respiratory Rate 16 Blood Pressure 139/66 Pulse Oximetry 93 L 06/12/18 01:00 06/12/18 02:00 06/12/18 03:00 Temperature 98.4 F Pulse Rate 74 66 66 Respiratory Rate 16 Blood Pressure 115/49 L Pulse Oximetry 95 06/12/18 04:00 06/12/18 05:00 06/12/18 06:00 Temperature Pulse Rate 64 64 62 Respiratory Rate Blood Pressure Pulse Oximetry 06/12/18 07:00 06/12/18 08:00 06/12/18 09:00 Temperature Pulse Rate 72 66 70 Respiratory Rate Blood Pressure Pulse Oximetry Intake & Output 06/11/18 06/12/18 06/12/18 18:59 06:59 18:59 Intake Total 850 / 850 1000 / 1000 Output Total 900 / 900 Balance -50 / -50 1000 / 1000 Weight 68 kg Intake: IV 1000 / 1000 Oral 850 / 850 Output: Urine 900 / 900 Other: # Voids 2 Narrative: GENERAL: Patient sitting up in bed. Appears comfortable. Exam unchanged from yesterday. SKIN: Warm and dry. HEAD: Normocephalic. EYES: No scleral icterus. No injection or drainage. NECK: Supple, trachea midline. No JVD. CARDIOVASCULAR: Regular rate and rhythm without murmurs, gallops, or rubs. RESPIRATORY: Breath sounds equal bilaterally. No accessory muscle use. GASTROINTESTINAL: Abdomen soft, non-tender, nondistended. MUSCULOSKELETAL: No cyanosis, or edema. Patient did have slight bilateral lower extremity edema yesterday, which has improved off of fluids. BACK: Nontender without obvious deformity. No CVA tenderness. Results - Labs CBC & Chem 7: 06/11/18 09:00 06/11/18 09:00 Laboratory Results - last 24 hr 06/11/18 06/11/18 06/11/18 00:40 09:00 12:00 Sodium 143 Potassium 3.9 Chloride 108 H Carbon Dioxide 28.1 Anion Gap 7 BUN 12 Creatinine 0.70 Estimated GFR 82 L POC Glucose 179 H Random Glucose 154 H Calcium 9.0 Phosphorus 4.0 D Magnesium 1.9 Total Bilirubin 0.5 AST 18 ALT 14 Alkaline Phosphatase 77 Total Protein 6.4 Albumin 2.9 L TSH 1.540 06/11/18 06/11/18 06/12/18 17:06 21:04 07:53 Sodium Potassium Chloride Carbon Dioxide Anion Gap BUN Creatinine Estimated GFR POC Glucose 211 H 116 H 142 H Random Glucose Calcium Phosphorus Magnesium Total Bilirubin AST ALT Alkaline Phosphatase Total Protein Albumin TSH Microbiology 06/08/18 00:05 Blood - Peripheral Aerobic Blood Culture - Preliminary No growth in 3 days 06/08/18 00:05 Blood - Peripheral Anaerobic Blood Culture - Preliminary No growth in 3 days - Imaging Impressions Venous Doppler Study 06/11/18 00:00 CONCLUSION: 1. Left popliteal fossa Marmolejo's cyst. 2. No evidence for DVT. Assessment and Plan - Assessment (1) Tremors of nervous system Code(s): R25.1 - Tremor, unspecified Status: Acute (2) PNA (pneumonia) Code(s): J18.9 - Pneumonia, unspecified organism Status: Acute (3) DM (diabetes mellitus) Code(s): E11.9 - Type 2 diabetes mellitus without complications Status: Chronic (4) Afib Code(s): I48.91 - Unspecified atrial fibrillation Status: Chronic - Plan 73-year-old female with a PMH of HTN, A. fib, DM, [place]'s Disease, Lupus, Rheumatoid Arthritis and h/o Seizure Disorder who was brought to the ER by for episode of "tremors" //Tremors: Reported extremity tremors, has videos on his cell phone. CT Head w/ no acute findings. H/o Seizure Disorder, on Dilantin approx 10yrs ago. Check EEG. Ativan prn. Consult neurology, Dr. Lam d/w Dr. Medrano, will proceed with LP, will need to hold Pradaxa for a few days prior. - DR MEDRANO DOES NOT WANT LP WILL RESTART PRADAXA = Follow-up neurology as outpatient. //PNA: CXR w/ new infiltrate posterior medial right lung. Continue IV azithromycin with multiple other antibiotic allergies. = Continue antibiotics. = Continue on Cefpodoxime as outpatient. Cannot do azithromycin due to prolonged QT. //DM: Sliding scale w/ Accu-cheks. //A-fib: Currently NSR. Rate controlled on Cardizem. Rhythm controlled on flecainide. Pradaxa WILL BE RESTARTED NO LP SCHEDULED PER CHART REVIEW = Had episode of atrial fibrillation with RVR on 06/09. Continues on Cardizem 120 mg ER p.o. daily, flecainide. Will check TSH. = Due to QTC of 505, will discontinue azithromycin. Consult Dr. Blankenship. = Discussed with cardiology PA who has cleared patient for discharge this morning. Episode was likely secondary to missing a dose of home meds. Continue on home meds. //Bilateral lower extremity edema. Likely secondary to IV fluids. Will check ultrasound bilateral lower extremities however. Discontinue IV fluid //Hypothyroidism. Chronic. TSH 1.5. Continue home meds. //Hypertension: BP elevated. Clonidine as needed for now. Consider addition of lisinopril. //DVT Prophylaxis: SCD/Teds Discharge Planning: Discharge Planning: Discharge home with family, home health today. (3) DM (diabetes mellitus) Qualifiers: Diabetes mellitus type: type 2 Diabetes mellitus intermediate frame tender insulin use: without senior care use Diabetes mellitus complication status: without complication Qualified Code(s): E11.9 - Type 2 diabetes mellitus without complications
--- NOTE | 2018-06-12 09:57 | P.DS ---
Date of admission: 06/09/18 14:47 Primary care physician: Kaylan Gu MD Brief History from admission: This is a 73-year-old female with a PMH of HTN, A. fib, DM, [place]'s Disease, Lupus, Rheumatoid Arthritis and h/o Seizure Disorder who was brought to the ER by for episode of "tremors". Pt w/ recent admit 04/25-04/30/18 for Delirium/UTI, s/p eval by Dr. Canseco w/ recommendation for LP, however pt on Pradaxa and LP deferred w/ plans for outpatient eval. Per , pt was seen by Dr. Gonzalez for their first visit and had multiple lab tests done, but no LP. Last night, pt noted to have involuntary movements of her left arm while sleeping. Today, notes pt w/ bilateral upper extremity and bilateral lower extremity tremors- has videos of these events on his cell phone. Pt believes they are seizures, however states she hasn't had a seizure in 10yrs. History difficult as pt and give conflicting information. On arrival, BP 177/81, HR 80, O2 sat 98% on RA, Afebrile. CBC essentially unremarkable. Chemistry essentially unremarkable. CT Head with no acute findings. CXR with infiltrate posterior medial right lung. S/p Rocephin/Vanc in ER DS: Diagnosis - Discharge Diagnosis (1) Tremors of nervous system Status: Acute (2) PNA (pneumonia) Status: Acute (3) DM (diabetes mellitus) Status: Chronic (4) Afib Status: Chronic DS: Summary Hospital Course: Brain imaging on admission unremarkable. Neurology was consulted, however patient and family do not want LP. Tremors improved. Patient is to continue on home dose of steroids. Patient did develop A. fib RVR overnight on 06/09, and on 06/10, however this resolved. Cardiology was consulted, recommends continue on home meds. A. fib RVR was likely secondary to missing home meds. Chest x-ray on admission did show small new right lung infiltrate. Patient treated with antibiotics during admission, cannot do azithromycin or fluoroquinolone secondary to prolonged QT of 500. Will discharge home on cefpodoxime to complete treatment course. For problem based summary from most recent progress note, please see below. 73-year-old female with a PMH of HTN, A. fib, DM, [place]'s Disease, Lupus, Rheumatoid Arthritis and h/o Seizure Disorder who was brought to the ER by for episode of "tremors" //Tremors: Reported extremity tremors, has videos on his cell phone. CT Head w/ no acute findings. H/o Seizure Disorder, on Dilantin approx 10yrs ago. Check EEG. Ativan prn. Consult neurology, Dr. Lam d/w Dr. Medrano, will proceed with LP, will need to hold Pradaxa for a few days prior. - DR MEDRANO DOES NOT WANT LP WILL RESTART PRADAXA = Follow-up neurology as outpatient. //PNA: CXR w/ new infiltrate posterior medial right lung. Continue IV azithromycin with multiple other antibiotic allergies. = Continue antibiotics. = Continue on Cefpodoxime as outpatient. Cannot do azithromycin due to prolonged QT. //DM: Sliding scale w/ Accu-cheks. //A-fib: Currently NSR. Rate controlled on Cardizem. Rhythm controlled on flecainide. Pradaxa WILL BE RESTARTED NO LP SCHEDULED PER CHART REVIEW = Had episode of atrial fibrillation with RVR on 06/09. Continues on Cardizem 120 mg ER p.o. daily, flecainide. Will check TSH. = Due to QTC of 505, will discontinue azithromycin. Consult Dr. Blankenship. = Discussed with cardiology PA who has cleared patient for discharge this morning. Episode was likely secondary to missing a dose of home meds. Continue on home meds. //Bilateral lower extremity edema. Likely secondary to IV fluids. Will check ultrasound bilateral lower extremities however. Discontinue IV fluid //Hypothyroidism. Chronic. TSH 1.5. Continue home meds. //Hypertension: BP elevated. Clonidine as needed for now. Consider addition of lisinopril. //DVT Prophylaxis: SCD/Teds Discharge Planning: Pending cardiology consult 06/11 hopefully patient can go home tomorrow. Discussed with family and patient today. - Time Spent with Patient Total time spent providing and/or coordinating discharge services: Greater than 30 minutes - Quality: VTE Deep Vein Thrombosis/Pulmonary Embolism Present on Admission: No Exam Vital signs: Vital Signs 06/11/18 10:00 06/11/18 11:00 06/11/18 12:00 Temperature 98.0 F Pulse Rate 58 L 60 60 Respiratory Rate 16 Blood Pressure 146/59 H Pulse Oximetry 95 06/11/18 13:00 06/11/18 14:00 06/11/18 15:00 Temperature 98.0 F Pulse Rate 62 68 64 Respiratory Rate 20 Blood Pressure 121/46 L Pulse Oximetry 100 06/11/18 16:00 06/11/18 17:00 06/11/18 18:00 Temperature Pulse Rate 60 62 62 Respiratory Rate Blood Pressure Pulse Oximetry 06/11/18 19:00 06/11/18 20:00 06/11/18 21:00 Temperature 98.2 F Pulse Rate 60 66 66 Respiratory Rate 16 Blood Pressure 139/66 Pulse Oximetry 93 L 06/11/18 22:00 06/11/18 23:00 06/12/18 00:00 Temperature 98.6 F Pulse Rate 74 64 64 Respiratory Rate 16 Blood Pressure 139/66 Pulse Oximetry 93 L 06/12/18 01:00 06/12/18 02:00 06/12/18 03:00 Temperature 98.4 F Pulse Rate 74 66 66 Respiratory Rate 16 Blood Pressure 115/49 L Pulse Oximetry 95 06/12/18 04:00 06/12/18 05:00 06/12/18 06:00 Temperature Pulse Rate 64 64 62 Respiratory Rate Blood Pressure Pulse Oximetry 06/12/18 07:00 06/12/18 08:00 06/12/18 09:00 Temperature Pulse Rate 72 66 70 Respiratory Rate Blood Pressure Pulse Oximetry Intake & Output 06/11/18 06/12/18 06/12/18 18:59 06:59 18:59 Intake Total 850 / 850 1000 / 1000 Output Total 900 / 900 Balance -50 / -50 1000 / 1000 Weight 68 kg Intake: IV 1000 / 1000 Oral 850 / 850 Output: Urine 900 / 900 Other: # Voids 2 Results Procedures completed during hospitalization: No invasive procedures. Labs on day of discharge: Labs from last 24 hours 06/12/18 06/11/18 06/11/18 07:53 21:04 17:06 POC Glucose 142 H 116 H 211 H Phosphorus Total Bilirubin Alkaline Phosphatase Total Protein TSH 06/11/18 06/11/18 06/11/18 12:00 09:00 00:40 POC Glucose 179 H Phosphorus 4.0 D Total Bilirubin 0.5 Alkaline Phosphatase 77 Total Protein 6.4 TSH 1.540 Preliminary micro results at discharge 06/08/18 00:05 Aerobic Blood Culture - Preliminary Blood - Peripheral No growth in 3 days Anaerobic Blood Culture - Preliminary No growth in 3 days - Impressions ITS Impressions Head CT 06/07/18 22:48 CONCLUSION: 1. No acute findings in the brain. 2. 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 . Abdomen X-Ray 06/09/18 00:00 CONCLUSION: No abnormality noted to account for the patient's pain. Chest X-Ray 06/09/18 00:00 CONCLUSION: The lungs are clear. Venous Doppler Study 06/11/18 00:00 CONCLUSION: 1. Left popliteal fossa Marmolejo's cyst. 2. No evidence for DVT. Discharge Plan - Discharge Disposition Patient Disposition: /Home Health Service - Discharge Condition Condition: Stable - Discharge Order Discharge Orders: Discharge Order (Routine); Ordered 06/12/18 Ordered By: Jovanny Ritchie - Discharge Details Anticipated Discharge Date: 06/12/18 - Physicians Team Primary Care Provider: Kaylan Gu Attending Provider: Jovanny Ritchie Other Providers: Meredith Medrano MD ; Nurse Winkler,Renée ; Tari Blankenship MD
[2018-06-12 09:59] VITALS: BP 125/57; TEMP 98.5; O2SAT 96
[2018-06-12 10:02] VITALS: PULSE 80
--- NOTE | 2018-06-12 10:08 | P.CONCA ---
<Shade,February - Last Filed: 06/12/18 09:57> History of Present Illness Service: Cardiology Consult date: 06/12/18 Reason for Consult: Afib RVR Primary Care Provider: Kaylan Gu MD Family Provider: Kaylan Gu MD History of Present Illness: Pleasant 72-year-old female well known to our practice with a significant past cardiac history of atrial fibrillation on Pradaxa, history of chest pain, CVA status post PFO closure, hypertension, hyperlipidemia, dementia, and lupus. She originally came into the ER on June 07 for complaints of tremors she had normal head CT. Was diagnosed with pneumonia and is currently on antibiotics. On June 09 she went into A. fib RVR and was given metoprolol IV and converted back to sinus rhythm. Today on exam she is in sinus rhythm HR 60. She denies any chest pain shortness of breath or palpitations. She continues on Pradaxa, denies any issues with bleeding. We will continue flecainide and diltiazem. Review of Systems Constitutional: Reports weakness Musculoskeletal: Reports muscle weakness Neurologic: Reports tremor(s), Reports unsteadiness, Reports weakness PMFSH - History History Provided By: Patient - Medical History Medical History: Medical History (Last Reviewed 06/10/18 @ 13:39 by Isabella Olea) Arthritis Fibromyalgia History of Floral's disease History of adrenal insufficiency History of atrial fibrillation History of diabetic gastroparesis History of pneumonia History of seizures Lupus Rheumatoid arthritis - Surgical History Surgical History: Surgical History (Last Reviewed 06/10/18 @ 13:39 by Isaeblla Olea) H/O laminectomy History of appendectomy History of cholecystectomy History of rotator cuff surgery History of total knee replacement - Tobacco History Second Hand Smoke Exposure: No Smoking Status: Never smoker - Alcohol History How Often Do You Have a Drink Containing Alcohol: Never - Substance Use History Substance History: No History of Abuse - Travel History Recent Travel in the [place] Within the Last 8 Weeks: No Recent Travel Out of the Country Within the Last 8 Weeks: No - Immunization History Tetanus Immunization: >5 Years Hx Influenza Vaccine This Season: Yes Medications and Allergies Allergies Allergy/AdvReac Type Severity Reaction Status Date / Time acetaminophen Allergy Severe red rash Verified 06/04/18 13:32 and hives amitriptyline Allergy Severe red,rash Verified 06/04/18 13:32 and hives baclofen Allergy Severe itch,rash Verified 06/04/18 13:32 and hives carisoprodol Allergy Severe red,rash,hi Verified 06/04/18 13:32 ves cyclobenzaprine Allergy Severe Hives Verified 06/04/18 13:32 diatrizoate meglumine Allergy Severe HIVES, ITCH Verified 06/04/18 13:32 doxycycline Allergy Severe red,rash,hi Verified 06/04/18 13:32 ves esomeprazole Allergy Severe HIVES Verified 06/04/18 13:32 gadobenic acid Allergy Severe HIVES, ITCH Verified 06/04/18 13:32 gadodiamide Allergy Severe HIVES, ITCH Verified 06/04/18 13:32 gadoteridol Allergy Severe HIVES, ITCH Verified 06/04/18 13:32 hydrocodone Allergy Severe red rash Verified 06/04/18 13:32 and hives hydromorphone Allergy Severe Hives Verified 06/04/18 13:32 hydroxychloroquine Allergy Severe Rash Verified 06/04/18 13:32 iodine Allergy Severe HIVES, ITCH Verified 06/04/18 13:32 iodixanol Allergy Severe HIVES, ITCH Verified 06/04/18 13:32 iohexol Allergy Severe HIVES, ITCH Verified 06/04/18 13:32 levofloxacin Allergy Severe Seizures Verified 06/04/18 13:32 metaxalone Allergy Severe Hives Verified 06/04/18 13:32 metformin Allergy Severe HIVES Verified 06/04/18 13:32 methocarbamol Allergy Severe RASH,HIVES Verified 06/04/18 13:32 morphine Allergy Severe Hives Verified 06/04/18 13:32 penicillin G Allergy Severe red rash Verified 06/04/18 13:32 and hives potassium iodide Allergy Severe HIVES, ITCH Verified 06/04/18 13:32 povidone-iodine Allergy Severe HIVES, ITCH Verified 06/04/18 13:32 pregabalin Allergy Severe Numbness Verified 06/04/18 13:32 sodium iodide Allergy Severe HIVES, ITCH Verified 06/04/18 13:32 sodium iodide Allergy Severe HIVES, ITCH Verified 06/04/18 13:32 Sulfa (Sulfonamide Allergy Severe N/V Verified 06/04/18 13:32 Antibiotics) sulfamethoxazole Allergy Severe N/V Verified 06/04/18 13:32 topiramate Allergy Severe red rash Verified 06/04/18 13:32 and hives trimethoprim Allergy Severe N/V Verified 06/04/18 13:32 lovastatin AdvReac Severe ALOVASTATIN Verified 06/04/18 13:32 + NIACIN = ADVICOR (SIDE EFFECT FLUSHING) niacin AdvReac Severe NIACIN + Verified 06/04/18 13:32 LOVASTATIN = ADVICOR (SIDE EFFECT FLUSHING) ONGLYZA Allergy Mild FEET Uncoded 06/04/18 13:32 SWELLING TRAJENTA Allergy Mild FEET Uncoded 06/04/18 13:32 SWELLING GLUCAVANCE Allergy Unknown UNKNOWN Uncoded 06/04/18 13:32 MOST ANTIBIOTICS Allergy Unknown UNKNOWN Uncoded 06/04/18 13:32 BYDUREON AdvReac Unknown SWELLING Uncoded 06/04/18 13:32 Home Medications Medication Instructions Recorded Confirmed Type dabigatran etexilate [Pradaxa] 150 mg PO BID 06/04/18 06/07/18 History diltiazem HCl 120 mg PO DAILY 06/04/18 06/07/18 History donepezil [Aricept] 10 mg PO DAILY 06/04/18 06/07/18 History flecainide 100 mg PO Q12H 06/04/18 06/07/18 History gabapentin 200 mg PO TID 06/04/18 06/07/18 History glimepiride 3 mg PO QAM 06/04/18 06/07/18 History hydrocortisone 5 mg PO HS 06/04/18 06/11/18 History hydrocortisone 20 mg PO DAILY 06/04/18 06/11/18 History pravastatin 40 mg PO DAILY 06/04/18 06/07/18 History memantine [Namenda] 5 mg PO DAILY 06/07/18 06/11/18 History levothyroxine [Synthroid] 150 mcg PO DAILY 06/11/18 06/11/18 History Active Medications: Active Medications Dabigatran (Pradaxa) 150 mg PO BID [facility] Last Admin: 06/12/18 09:15 Dose: 150 mg Dextrose (D50w Vial) 50 ml IV.PUSH UNSCH PRN PRN Reason: PER HYPOGLYCEMIA PROTOCOL Diltiazem HCl (Cardizem Cd 24hr) 120 mg PO DAILY [facility] Last Admin: 06/12/18 09:15 Dose: 120 mg Donepezil HCl (Aricept) 10 mg PO DAILY [facility] Last Admin: 06/12/18 09:14 Dose: 10 mg Flecainide Acetate (Tambocor) 100 mg PO Q12HR [facility] Last Admin: 06/12/18 09:15 Dose: 100 mg Gabapentin (Neurontin) 200 mg PO TID [facility] Last Admin: 06/12/18 09:14 Dose: 200 mg Glucagon (Glucagon Inj) 1 mg OTHER PRN PRN PRN Reason: for Hypoglycemia Protocol Hydrocortisone Acetate (Cortef) 5 mg PO HS [facility] Last Admin: 06/11/18 21:07 Dose: 5 mg Hydrocortisone Acetate (Cortef) 20 mg PO DAILY [facility] Last Admin: 06/12/18 09:15 Dose: 20 mg Hydroxyzine HCl (Atarax) 25 mg PO Q6H PRN PRN Reason: ITCHING Last Admin: 06/11/18 21:07 Dose: 25 mg Ceftriaxone Sodium 1,000 mg/ (Sodium Chloride) 100 mls @ 200 mls/hr IV.SIG Q24H [facility] Insulin Aspart (Novolog Insulin Correctional Sugar Inj) 0 unit SQ ACHS [facility]; Protocol Last Admin: 06/12/18 08:13 Dose: Not Given Lactobacillus Acidophilus (Lactinex Pkt) 1 gm PO TID [facility] Last Admin: 06/12/18 09:15 Dose: 1 gm Loperamide HCl (Imodium) 2 mg PO UNSCH PRN PRN Reason: DIARRHEA Lorazepam (Ativan Inj) 0.5 mg IV.PUSH Q4H PRN PRN Reason: TREMOR Last Admin: 06/09/18 21:09 Dose: 0.5 mg Memantine (Namenda) 5 mg PO DAILY [facility] Last Admin: 06/12/18 09:15 Dose: 5 mg Miscellaneous (Pill Splitter) 1 each OTHER UNSCH [facility] Ondansetron HCl (Zofran Inj) 4 mg IV.PUSH Q6H PRN PRN Reason: NAUSEA OR VOMITING Oxycodone HCl (Roxicodone) 5 mg PO Q6H PRN PRN Reason: PAIN SCALE 6 TO 10 Last Admin: 06/11/18 23:31 Dose: 5 mg Pravastatin Sodium (Pravachol) 40 mg PO DAILY [facility] Last Admin: 06/12/18 09:14 Dose: 40 mg Temazepam (Restoril) 15 mg PO HS PRN PRN Reason: INSOMNIA Exam Vital signs: Vital Signs 06/11/18 10:00 06/11/18 11:00 06/11/18 12:00 Temperature 98.0 F Pulse Rate 58 L 60 60 Respiratory Rate 16 Blood Pressure 146/59 H Pulse Oximetry 95 06/11/18 13:00 06/11/18 14:00 06/11/18 15:00 Temperature 98.0 F Pulse Rate 62 68 64 Respiratory Rate 20 Blood Pressure 121/46 L Pulse Oximetry 100 06/11/18 16:00 06/11/18 17:00 06/11/18 18:00 Temperature Pulse Rate 60 62 62 Respiratory Rate Blood Pressure Pulse Oximetry 06/11/18 19:00 06/11/18 20:00 06/11/18 21:00 Temperature 98.2 F Pulse Rate 60 66 66 Respiratory Rate 16 Blood Pressure 139/66 Pulse Oximetry 93 L 06/11/18 22:00 06/11/18 23:00 06/12/18 00:00 Temperature 98.6 F Pulse Rate 74 64 64 Respiratory Rate 16 Blood Pressure 139/66 Pulse Oximetry 93 L 06/12/18 01:00 06/12/18 02:00 06/12/18 03:00 Temperature 98.4 F Pulse Rate 74 66 66 Respiratory Rate 16 Blood Pressure 115/49 L Pulse Oximetry 95 06/12/18 04:00 06/12/18 05:00 06/12/18 06:00 Temperature Pulse Rate 64 64 62 Respiratory Rate Blood Pressure Pulse Oximetry 06/12/18 07:00 06/12/18 08:00 06/12/18 09:00 Temperature Pulse Rate 72 66 70 Respiratory Rate Blood Pressure Pulse Oximetry Intake & Output 06/11/18 06/12/18 06/12/18 18:59 06:59 18:59 Intake Total 850 / 850 1000 / 1000 Output Total 900 / 900 Balance -50 / -50 1000 / 1000 Weight 68 kg Intake: IV 1000 / 1000 Oral 850 / 850 Output: Urine 900 / 900 Other: # Voids 2 - Constitutional no acute distress - Routine HEENT Exam Head: Present: atraumatic Eye: Present: normal accommodation ENT: Present: mucous membranes moist - Routine Neck Exam Present: supple - Routine Cardiovascular Exam Present: RRR - Routine Abdominal Exam Present: soft - Routine Skin Exam Present: intact - Routine Neurological Exam Present: alert confused Results 06/11/18 09:00 06/11/18 09:00 Comprehensive Metabolic Panel 06/11/18 Range/Units 09:00 Alkaline Phosphatase 77 (45-117) U/L Total Protein 6.4 (6.4-8.2) g/dL Intake and Output 06/11/18 06/12/18 06/12/18 22:59 06:59 14:59 Intake Total 850 / 850 1000 / 1000 Output Total 900 / 900 Balance -50 / -50 1000 / 1000 Intake: IV 1000 / 1000 Oral 850 / 850 Output: Urine 900 / 900 Other: # Voids 2 Weight 68 kg Assessment and Plan - Plan Afib RVR HTN -Pt converted to SR with Metoprolol IV. Telemetry shows SR this AM. Patient continues on Pradaxa, no issues with bleeding. Will continue home medications Flecainide and diltiazem. She denies any cardiac complaints and is cleared from cardiology for discharge home. Will plan to see in office in 1-2 weeks for hospital follow up. -BP is controlled. The patient was seen and evaluated by Dr. Blankenship who completed face to face encounter and physical exam and participated in care, management, and decision making. Code Status: Full Discussed Condition With: Doctor, Nurse and niece <Tari Blankenship - Last Filed: 06/12/18 15:17> History of Present Illness Primary Care Provider: Kaylan Gu MD Family Provider: Kaylan Gu MD [facility] - Medical History Medical History: Medical History (Last Reviewed 06/10/18 @ 13:39 by Isabella Olea) Arthritis Fibromyalgia History of Davon's disease History of adrenal insufficiency History of atrial fibrillation History of diabetic gastroparesis History of pneumonia History of seizures Lupus Rheumatoid arthritis - Surgical History Surgical History: Surgical History (Last Reviewed 06/10/18 @ 13:39 by Isabella Olea) H/O laminectomy History of appendectomy History of cholecystectomy History of rotator cuff surgery History of total knee replacement Exam Vital signs: Vital Signs 06/11/18 16:00 06/11/18 17:00 06/11/18 18:00 Temperature Pulse Rate 60 62 62 Respiratory Rate Blood Pressure Pulse Oximetry 06/11/18 19:00 06/11/18 20:00 06/11/18 21:00 Temperature 98.2 F Pulse Rate 60 66 66 Respiratory Rate 16 Blood Pressure 139/66 Pulse Oximetry 93 L 06/11/18 22:00 06/11/18 23:00 06/12/18 00:00 Temperature 98.6 F Pulse Rate 74 64 64 Respiratory Rate 16 Blood Pressure 139/66 Pulse Oximetry 93 L 06/12/18 01:00 06/12/18 02:00 06/12/18 03:00 Temperature 98.4 F Pulse Rate 74 66 66 Respiratory Rate 16 Blood Pressure 115/49 L Pulse Oximetry 95 06/12/18 04:00 06/12/18 05:00 06/12/18 06:00 Temperature Pulse Rate 64 64 62 Respiratory Rate Blood Pressure Pulse Oximetry 06/12/18 07:00 06/12/18 08:00 06/12/18 09:00 Temperature 98.5 F Pulse Rate 72 72 70 Respiratory Rate 16 Blood Pressure 125/57 L Pulse Oximetry 96 06/12/18 10:00 Temperature Pulse Rate 80 Respiratory Rate Blood Pressure Pulse Oximetry Intake & Output 06/11/18 06/12/18 06/12/18 18:59 06:59 18:59 Intake Total 850 / 850 1000 / 1000 Output Total 900 / 900 Balance -50 / -50 1000 / 1000 Weight 68 kg Intake: IV 1000 / 1000 Oral 850 / 850 Output: Urine 900 / 900 Other: # Voids 2 Results 06/11/18 09:00 06/11/18 09:00 Intake and Output 06/12/18 06/12/18 06/12/18 06:59 14:59 22:59 Intake Total 1000 / 1000 Balance 1000 / 1000 Intake: IV 1000 / 1000 Other: # Voids 2 Weight 68 kg Assessment and Plan - Plan The exam, history, and the medical decision-making described in the above note were completed with the assistance of the mid-level provider. I reviewed and agree with the findings presented. I attest that I had a [id number] encounter with the patient on the same day, and personally performed and documented my assessment and findings in the medical record. Will continue meds and see in office , discussed with family
== END 2018-06-12 11:41 | disposition home health service (06) ==
LOC: NEDA 20:54 → NEPC 20:54 → NEPFCDU 06-08 01:21 → HCIS 06-09 02:52
PROVIDERS: ADMIT Internal Medicine; ATTEND Internal Medicine